=== PATIENT | male | born 1950 | race Caucasian/White ===

== ENCOUNTER 2023-04-08 14:50 | Outpatient (AMB) | payer MEDICARE, SELFPAY ==
--- NOTE | 2023-04-08 14:52 | MHC.OFFVIS ---
Intake Vital Signs 04/08/23 14:54 Height 5 ft 4 in Weight 188 lb 7.924 oz BMI 32.4 BP 142/72 H Blood Pressure Location Lt brachial Position Sitting Pulse 55 Pulse Source Pulse Oximeter Pulse Oximetry (%) 97 Oxygen Delivery Method Room Air Intake Visit Reasons: dypnea Allergies No Known Allergies Allergy (Verified 04/08/23 14:57) HPI HPI Comments History of Present Illness Details the patient is here for pulmonary evaluation. The patient is a 73-year-old gentleman presenting with symptoms of progressive dyspnea. The patient states that he gets short of breath when going up a flight of stairs. Will works in the [employer] now for more than 20 years. He is very active he wakes up early in the morning and he has been working most days. The patient has been evaluated for dyspnea by Cardiology. 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 He also has atrial fibrillation and has been on rate-controlling agents and anticoagulation. Therefore, the patient underwent additional studies to assess his dyspnea symptoms. He did undergo pulmonary function studies that do not have available. Apparently he was told that they appeared to be good for his age. I will request them from his primary care. I did look in the [email or web address] system but I can not locate them there. The patient also had a CT scan of the chest at [facility]. I personally reviewed the CT scan with him and his . Patient has only minimal changes. Does have appeared to have some mosaic pattern primarily at the bases suggesting air trapping in addition to that does have some reticular changes in the periphery in the bases suggesting some degree of scarring. 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 But explained to the patient and his that the findings on the CT scan do not explain the full picture. We did go for brief walking oximetry. We were walking on hallway a decent pace and the patient did very well patient's heart rate did go up to 116 regularly regular due to his AFib and his pulse ox was 98%. Subsequently after that we did go a flight of stairs the patient is symptoms worsened once we went up 3 flights of stairs. He did take a break he was visibly breathless. At that point his pulse ox was 96% and heart rate around 105 beats per minute. Once he rested after 2 minutes we were able to go downstairs again. He did well otherwise. [facility] Medical History (Updated 04/08/23 @ 22:17 by Klaus Adames MD) Afib Anemia Dyspnea ILD (interstitial lung disease) Valvular heart disease Review of Systems Const Denies fever(s) Eyes Denies change in vision ENT Denies change in voice Card Denies chest pain and Reports dyspnea on exertion Resp Reports dyspnea on exertion and Denies wheezing GI Reports no additional complaints Musc Reports no additional complaints Skin/Breast Denies rash Neuro Reports no additional complaints Kel/Lymph Denies easy bleeding, Denies easy bruising and Denies lymphadenopathy Aller/Immun Denies wheezing Physical Exam Vital Signs: Last Vital Signs Pulse 55 04/08/23 14:54 BP 142/72 H 04/08/23 14:54 Pulse Ox 97 04/08/23 14:54 Oxygen Delivery Method Room Air 04/08/23 14:54 BMI result Body Mass Index 32.4 Const General: comfortable HEENT Head: Yes atraumatic Neck Neck: Yes supple Chest Chest palpation & inspection: normal inspection of the chest Resp Effort & Inspection: normal respiratory effort Auscultation: no crackles, no rhonchi, no wheezes and diminished lung sounds Cardio Rhythm: abnormal rhythm Heart sounds: S1 normal heart sound present, S2 normal heart sound present and Murmur heart sound present GI Palpation (GI): Soft to palpation Skin General skin exam: no rashes or lesions noted Extrem General: Yes no clubbing, cyanosis or edema Assessment & Plan Assessment & Plan (1) Dyspnea: Code(s): R06.00 - Dyspnea, unspecified (2) ILD (interstitial lung disease): Code(s): J84.9 - Interstitial pulmonary disease, unspecified (3) Afib: Code(s): I48.91 - Unspecified atrial fibrillation (4) Anemia: Code(s): D64.9 - Anemia, unspecified (5) Valvular heart disease: Code(s): I38 - Endocarditis, valve unspecified Plan The patient is presenting with progressive dyspnea symptoms. Based on presentation it appears that his dyspnea is multifactorial. He does have a very physical job he actually did fairly well during his walking oximetry even going up several flights of stairs. likely the underlying interstitial lung disease which could be secondary to his work-related exposures and pneumoconiosis needs to be further explored. Chronic hypersensitivity pneumonitis is in the differential in this could be related to exposure to organic protein that he may be hypersensitive to. In addition to that a lot of pesticides and insecticides that unfortunately have been also associated with interstitial lung disease. I do not see any evidence of any idiopathic pulmonary fibrosis but will continue to monitor. Again the interstitial lung disease findings along with his history of anemia, chronic atrial fibrillation without any atrial kick, or likely precipitating his underlying symptoms. Recommendations: Will request blood work to further address the interstitial lung disease in possible pneumoconiosis trial of prednisone times 14 days. He does have a history prediabetes therefore he will be monitoring his sugars. Need to review his PFTs. Will request a from his primary care doctor's office follow-up in 6-8 weeks to review the blood work and assess his response to steroids Orders: Orders Cyclic Citrullinated Peptide Today J84.9 - Interstitial pulmonary disease, unspecified Complete Blood Count Auto Diff Today J84.9 - Interstitial pulmonary disease, unspecified Erythrocyte Sedimentation Rate Today J84.9 - Interstitial pulmonary disease, unspecified DONNA Reflex Titer and Pattern Today J84.9 - Interstitial pulmonary disease, unspecified Hypersensitive Pneumonitis Prf Today J84.9 - Interstitial pulmonary disease, unspecified, R91.8 - Other nonspecific abnormal finding of lung field Immunoglobulin E Today J84.9 - Interstitial pulmonary disease, unspecified Scleroderma 70 Antibody Today J84.9 - Interstitial pulmonary disease, unspecified Medications: New prednisone PO daily; Take 2 tabs daily x 7 days, then 1 tab daily x 7 days 21 tabs 0RF 14 days Coding Level of Care Code New Pt Level 5 (41214) Diagnoses Dyspnea R06.00 ILD (interstitial lung disease) J84.9 Afib I48.91 Anemia D64.9 Valvular heart disease I38 Time Spent (min) 60
[2023-04-08 14:54] VITALS: BP 142/72; PULSE 55; O2SAT 97; BMI 32.4
== END 2023-04-08 15:41 | disposition home or self-care (01) ==
PROVIDERS: PCP Pediatrics; Visit Provider Hospitalist
DX: J84.9 Interstitial pulmonary disease, unspecified (principal); I48.91 Unspecified atrial fibrillation; D64.9 Anemia, unspecified; I38 Endocarditis, valve unspecified
CPT/HCPCS: 99205

== ENCOUNTER → 2023-04-08 14:50 | Outpatient (BNVA) | payer MEDICARE, SELFPAY | PROVIDERS: PCP Pediatrics; Visit Provider Hospitalist | DX: R06.00 Dyspnea, unspecified (principal); J84.9 Interstitial pulmonary disease, unspecified; R91.8 Other nonspecific abnormal finding of lung field; I48.91 Unspecified atrial fibrillation; I38 Endocarditis, valve unspecified; D64.9 Anemia, unspecified | CPT/HCPCS: 99202 ==

== ENCOUNTER 2023-06-03 14:47 | Outpatient (AMB) | payer MEDICARE, SELFPAY ==
[2023-06-03 14:53] VITALS: PULSE 66; O2SAT 97; BMI 32.4
--- NOTE | 2023-06-03 14:53 | A.OFFVIS_ITS ---
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 The patient states that he gets short of breath when going up a flight of stairs. Will works in the [employer] now for more than 20 years. He is very active he wakes up early in the morning and he has been working most days. The patient has been evaluated for dyspnea by Cardiology. 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 He also has atrial fibrillation and has been on rate-controlling agents and anticoagulation. Therefore, the patient underwent additional studies to assess his dyspnea symptoms. He did undergo pulmonary function studies that do not have available. Apparently he was told that they appeared to be good for his age. I will request them from his primary care. I did look in the [employer] system but I can not locate them there. The patient also had a CT scan of the chest at [facility]. I personally reviewed the CT scan with him and his . Patient has only minimal changes. Does have appeared to have some mosaic pattern primarily at the bases suggesting air trapping in addition to that does have some reticular changes in the periphery in the bases suggesting some degree of scarring. 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 But explained to the patient and his that the findings on the CT scan do not explain the full picture. We did go for brief walking oximetry. We were walking on hallway a decent pace and the patient did very well patient's heart rate did go up to 116 regularly regular due to his AFib and his pulse ox was 98%. Subsequently after that we did go a flight of stairs the patient is symptoms worsened once we went up 3 flights of stairs. He did take a break he was visibly breathless. At that point his pulse ox was 96% and heart rate around 105 beats per minute. Once he rested after 2 minutes we were able to go downstairs again. He did well otherwise. 06/03/2023 the patient is here for a [facility] follow-up visit. He continues to have dyspnea on exertion specially going up a flight of stairs but overall okay. He did undergo a brief course of prednisone to see if this provides some relief any did indeed feel better after being on the prednisone. He is now off the prednisone altogether which is also good. His blood sugars were stable and he was on the therapy. I did again review the CT scan of the chest with some degree of interstitial changes but not significant. Therefore I do not believe that he needs additional steroids at this time. 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 Will plan to have him come back in 6 months with a chest x-ray to see if there is any progression of the pneumoconiosis. If there is any worsening interstitial lung disease or symptoms then we can consider more systemic therapy. Otherwise he can also call and we can consider inhaled cortical steroids but I do not believe that the going to be as effective for him. [facility] Medical History (Updated 06/03/23 @ 23:09 by Klaus Adames MD) Valvular heart disease Anemia Afib ILD (interstitial lung disease) Dyspnea Social History (Updated 06/03/23 @ 14:56 by MARCIA Martinez) Patient Tobacco Use Status: Never used Tobacco Review of Systems Const Denies fever(s) Eyes Denies change in vision ENT Denies change in voice Card Denies chest pain and Reports dyspnea on exertion Resp Reports dyspnea on exertion and Denies wheezing GI Reports no additional complaints Musc Reports no additional complaints Skin/Breast Denies rash Neuro Reports no additional complaints Kel/Lymph Denies easy bleeding, Denies easy bruising and Denies lymphadenopathy Aller/Immun Denies wheezing Physical Exam Vital Signs: Last Vital Signs Pulse 66 06/03/23 14:53 Pulse Ox 97 06/03/23 14:53 Oxygen Delivery Method Room Air 06/03/23 14:53 BMI result Body Mass Index 32.4 Const General: comfortable HEENT Head: Yes atraumatic Neck Neck: Yes supple Chest Chest palpation & inspection: normal inspection of the chest Resp Effort & Inspection: normal respiratory effort Auscultation: no crackles, no rhonchi, no wheezes and diminished lung sounds Cardio Rhythm: abnormal rhythm Heart sounds: S1 normal heart sound present, S2 normal heart sound present and Murmur heart sound present GI Palpation (GI): Soft to palpation Skin General skin exam: no rashes or lesions noted Extrem General: Yes no clubbing, cyanosis or edema Assessment & Plan Assessment & Plan (1) Dyspnea: Code(s): R06.00 - Dyspnea, unspecified Qualifiers: Dyspnea type: dyspnea on exertion Qualified Code(s): R06.09 - Other forms of dyspnea (2) ILD (interstitial lung disease): Code(s): J84.9 - Interstitial pulmonary disease, unspecified (3) Afib: Code(s): I48.91 - Unspecified atrial fibrillation Qualifiers: Atrial fibrillation type: paroxysmal Qualified Code(s): I48.0 - Paroxysmal atrial fibrillation (4) Anemia: Code(s): D64.9 - Anemia, unspecified Qualifiers: Anemia type: other cause Other causes of anemia: other cause, not classified Qualified Code(s): D64.89 - Other specified anemias (5) Valvular heart disease: Code(s): I38 - Endocarditis, valve unspecified Plan The patient is presenting with progressive dyspnea symptoms. Based on presentation it appears that his dyspnea is multifactorial. He does have a very physical job he actually did fairly well during his walking oximetry even going up several flights of stairs. likely the underlying interstitial lung disease which could be secondary to his work-related exposures and pneumoconiosis needs to be further explored. Chronic hypersensitivity pneumonitis is in the differential in this could be related to exposure to organic protein that he may be hypersensitive to. In addition to that a lot of pesticides and insecticides that unfortunately have been also associated with interstitial lung disease. I do not see any evidence of any idiopathic pulmonary fibrosis but will continue to monitor. Again the interstitial lung disease findings along with his history of anemia, chronic atrial fibrillation without any atrial kick, or likely precipitating his underlying symptoms. Recommendations: start NINA as needed consider inhaled steroid CXR consider pulmonary rehab F/U 6 months or sooner if symptoms worsen Orders: Orders XR chest 2V Today J84.9 - Interstitial pulmonary disease, unspecified Medications: New albuterol sulfate 90 mcg/actuation 2 inhalations inhalation Q6H PRN 18 grams 12RF shortness of breath or wheezing 30 days J44.9 - Chronic obstructive pulmonary disease, unspecified Coding Level of Care Code Est Pt Level 4 (12387) Diagnoses Dyspnea on exertion R06.09 Dyspnea type: dyspnea on exertion ILD (interstitial lung disease) J84.9 Paroxysmal atrial fibrillation I48.0 Atrial fibrillation type: paroxysmal Anemia due to other cause, not classified D64.89 Anemia type: other cause Other causes of anemia: other cause, not classified Valvular heart disease I38 Time Spent (min) 17
== END 2023-06-03 15:15 | disposition home or self-care (01) ==
PROVIDERS: PCP Pediatrics; Visit Provider Hospitalist
DX: R06.09 Other forms of dyspnea (principal); J84.9 Interstitial pulmonary disease, unspecified; I48.0 Paroxysmal atrial fibrillation; D64.89 Other specified anemias; I38 Endocarditis, valve unspecified
CPT/HCPCS: 99214

== ENCOUNTER → 2023-06-03 14:47 | Outpatient (BNVA) | payer MEDICARE, SELFPAY | PROVIDERS: PCP Pediatrics; Visit Provider Hospitalist | DX: R06.09 Other forms of dyspnea (principal); J84.9 Interstitial pulmonary disease, unspecified; I48.0 Paroxysmal atrial fibrillation; I38 Endocarditis, valve unspecified; D64.89 Other specified anemias | CPT/HCPCS: 99212 ==

== ENCOUNTER 2023-11-14 12:46 | Outpatient (REF) | payer MEDICARE, SELFPAY ==
--- NOTE | ~2023-11-14 | XR_ITS ---
EXAMINATION: XR CHEST CLINICAL INFORMATION: Pulmonary disease, unspecified COMPARISON: None available. TECHNIQUE: 2 views of the chest were obtained. FINDINGS: The patient is status post median sternotomy for CABG surgery. Status post TAPVR. The lungs are well expanded and clear. No focal consolidation, interstitial pulmonary edema or pneumothorax. Prominence of the interstitial markings is not appreciated. R size is upper limits of normal. No pleural effusion. No acute osseous abnormality. XR/XR chest 2V IMPRESSION: No acute abnormality.
== END 2023-11-14 12:47 | disposition home or self-care (01) ==
LOC: HO.XRAY 12:46
PROVIDERS: PCP Pediatrics; Visit Provider Hospitalist
DX: J84.9 Interstitial pulmonary disease, unspecified (principal); R06.09 Other forms of dyspnea; I48.0 Paroxysmal atrial fibrillation
CPT/HCPCS: 71046; 99212

== ENCOUNTER 2023-11-14 13:07 | Outpatient (AMB) | payer MEDICARE, SELFPAY ==
[2023-11-14 13:49] VITALS: PULSE 70; O2SAT 97; BMI 34.3
--- NOTE | 2023-11-14 13:49 | A.OFFVIS_ITS ---
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 The patient states that he gets short of breath when going up a flight of stairs. Will works in the [employer] now for more than 20 years. He is very active he wakes up early in the morning and he has been working most days. The patient has been evaluated for dyspnea by Cardiology. 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 He also has atrial fibrillation and has been on rate-controlling agents and anticoagulation. The refore, the patient underwent additional studies to assess his dyspnea symptoms. He did undergo pulmonary function studies that do not have available. Apparently he was told that they appeared to be good for his age. I will request them from his primary care. I did look in the [employer] system but I can not locate them there. The patient also had a CT scan of the chest at [facility]. I personally reviewed the CT scan with him and his . Patient has only minimal changes. Does have appeared to have some mosaic pattern primarily at the bases suggesting air trapping in addition to that does have some reticular changes in the periphery in the bases suggesting some degree of scarring. 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 But explained to the patient and his that the findings on the CT scan do not explain the full picture. We did go for brief walking oximetry. We were wa lking on hallway a decent pace and the patient did very well patient's heart rate did go up to 116 regularly regular due to his AFib and his pulse ox was 98%. Subsequently after that we did go a flight of stairs the patient is symptoms worsened once we went up 3 flights of stairs. He did take a break he was visibly breathless. At that point his pulse ox was 96% and heart rate around 105 beats per minute. Once he rested after 2 minutes we were able to go downstairs again. He did well otherwise. 06/03/2023 the patient is here for a pul monary follow-up visit. He continues to have dyspnea on exertion specially going up a flight of stairs but overall okay. He did undergo a brief course of prednisone to see if this provides some relief any did indeed feel better after being on the prednisone. He is now off the prednisone altogether which is also good. His blood sugars were stable and he was on the therapy. I did again review the CT scan of the chest with some degree of interstitial changes but not significant. Therefore I do not believe that he needs additional steroids at this time. 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 Will plan to have him come back in 6 months with a chest x-ray to see if there is any progression of the pneumoconiosis. If there is any worsening interstitial lung disease or symptoms then we can consider more systemic therapy. Otherwise he can also call and we can consider inhaled cortical steroids but I do not believe that the going to be as effective for him. 11/14/2023 [facility] The patient has been doing well. Still complains of dyspnea on exertion at baseline. Mainly when going up a flight of stairs or going up inclines. 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 He has no longer on any prednisone or any therapy. He does have a rescue inhaler but he has not needed it. He does have a history atrial fibrillation so he has to be careful with that. He did have a chest x-ray which we personally reviewed. It appears to be completely intact without any evidence of any pneumonitis or scarring. Seems like he is doing very well therefore we do not have to consider additional therapies. Will go ahead and have him repeat the CT scan in early 2024 to assess for any progression of interstitial lung disease. [facility] Medical History (Updated 06/03/23 @ 23:09 by Klaus Adames MD) Valvular heart disease Anemia Afib ILD (interstitial lung disease) Dyspnea Social History (Updated 06/03/23 @ 14:56 by MARCIA Martinez) Patient Tobacco Use Status: Never used Tobacco Review of Systems Const Denies fever(s) Eyes Denies change in vision ENT Denies change in voice Card Denies chest pain and Reports dyspnea on exertion Resp Reports dyspnea on exertion and Denies wheezing GI Reports no additional complaints Musc Reports no additional complaints Skin/Breast Denies rash Neuro Reports no additional complaints Kel/Lymph Denies easy bleeding, Denies easy bruising and Denies lymphadenopathy Aller/Immun Denies wheezing Physical Exam Vital Signs: Last Vital Signs Pulse 70 11/14/23 13:49 Pulse Ox 97 11/14/23 13:49 Oxygen Delivery Method Room Air 11/14/23 13:49 BMI result Body Mass Index 34.3 Const General: comfortable HEENT Head: Yes atraumatic Neck Neck: Yes supple Chest Chest palpation & inspection: normal inspection of the chest Resp Effort & Inspection: normal respiratory effort Auscultation: no crackles, no rhonchi, no wheezes and diminished lung sounds Cardio Rhythm: abnormal rhythm Heart sounds: S1 normal heart sound present, S2 normal heart sound present and Murmur heart sound present GI Palpation (GI): Soft to palpation Skin General skin exam: no rashes or lesions noted Extrem General: Yes no clubbing, cyanosis or edema Assessment & Plan Assessment & Plan (1) Dyspnea: Code(s): R06.00 - Dyspnea, unspecified Qualifiers: Dyspnea type: dyspnea on exertion Qualified Code(s): R06.09 - Other forms of dyspnea (2) ILD (interstitial lung disease): Code(s): J84.9 - Interstitial pulmonary disease, unspecified (3) Afib: Code(s): I48.91 - Unspecified atrial fibrillation Qualifiers: Atrial fibrillation type: paroxysmal Qualified Code(s): I48.0 - Paroxysmal atrial fibrillation (4) Anemia: Code(s): D64.9 - Anemia, unspecified Qualifiers: Anemia type: other cause Other causes of anemia: other cause, not classified Qualified Code(s): D64.89 - Other specified anemias (5) Valvular heart disease: Code(s): I38 - Endocarditis, valve unspecified Plan The patient is presenting with progressive dyspnea symptoms. Based on presentation it appears that his dyspnea is multifactorial. He does have a very physical job he actually did fairly well during his walking oximetry even going up several flights of stairs. likely the underlying interstitial lung disease which could be secondary to his work-related exposures and pneumoconiosis needs to be further explored. Chronic hypersensitivity pneumonitis is in the differential in this could be related to exposure to organic protein that he may be hypersensitive to. In addition to that a lot of pesticides and insecticides that unfortunately have been also associated with interstitial lung disease. I do not see any evidence of any idiopathic pulmonary fibrosis but will continue to monitor. Again the interstitial lung disease findings along with his history of anemia, chronic atrial fibrillation without any atrial kick, or likely precipitating his underlying symptoms. Recommendations: NINA as needed consider inhaled steroid CT chest August 2024 F/U August 2024 Orders: Orders CT chest wo IV con 08/17/24 J84.9 - Interstitial pulmonary disease, unspecified Coding Level of Care Code Est Pt Level 4 (90843) Diagnoses Dyspnea on exertion R06.09 Dyspnea type: dyspnea on exertion ILD (interstitial lung disease) J84.9 Paroxysmal atrial fibrillation I48.0 Atrial fibrillation type: paroxysmal Anemia due to other cause, not classified D64.89 Anemia type: other cause Other causes of anemia: other cause, not classified Valvular heart disease I38 Time Spent (min) 17
== END 2023-11-14 14:13 | disposition home or self-care (01) ==
PROVIDERS: PCP Pediatrics; Visit Provider Hospitalist
DX: R06.09 Other forms of dyspnea (principal); J84.9 Interstitial pulmonary disease, unspecified; I48.0 Paroxysmal atrial fibrillation; D64.89 Other specified anemias; I38 Endocarditis, valve unspecified
CPT/HCPCS: 99214

== ENCOUNTER 2024-07-21 12:52 | Outpatient (REF) | payer MEDICARE, SELFPAY ==
--- OUTSIDE RECORDS SUMMARY | 2024-07-22 21:17 | XMS_ITS | Clinical Summary ---
Author Organization [facility] Address [address] [place] [phone] Phone Care Team Providers Care Jai Alai Player Name Role Phone [facility] Unavailable [phone] Tc Mata MD Primary Care Provider [phone] Reason for Visit and Chief Complaint Established Patient Plan of Treatment Pending Tests Order Diagnosis Results Due Ordering P rovider Follow Up - Appointment PRN Contusio n of left lower leg, initial encounter 12/17/22 Eduardo Pruitt MD Last Documented On 10:24AM ; [facility] Assessments Includes: Assessments from this encounter No Assessments Recorded Medical Equipment - Implanted Devices Includes: Current Devices No Medical Equipment Recorded Medications Administered Includes: Administered Medications from this encounter No Administered Medications Recorded Vital Signs Includes: Vital Signs from this encounter Vital Name 12/17/2022 10:21A Blood Pressure Sitting (mmHg) 130/46 Pulse Rate-Sitting (bpm) 61 Temp-Temporal 97.2 Height (in) 66 Weight (lb) 200 Body Mass Index 32.3 Body Surface Area 2 Oxygen Saturation (%) 99 Last Documented: On 12/17/2022 10:21A M ; [facility] Results Includes: Results discussed during this encounter No Results Recorded For Specified Dates History of Present Illness Includes: History of Present Illness from this encounter No History of Present Illness Recorded Social History No Social History Recorded - Smoking Status Unknown Medical History Includes: Medical History addressed during this encounter No Medical History Recorded Family History Includes: Family History addressed during this encounter No Family History Recorded Review of Systems Includes: Review of Systems from this encounter No Review of Systems Recorded Mental Status Includes: Mental Status from this encounter No Mental Status Recorded Functional Status Includes: Functional Status from this encounter No Functional Status Recorded Physical Exam Includes: Physical Exam from this encounter Encounters Encounter Provider Location Date Check-In Time Check-Out Time Diagnosis Established Patient Eduardo Pruitt MD [facility], 12/18/19 9:40AM 10:25AM Insurance Includes: Active Insurance Policies Plan Name Member ID Group # Subscriber Relationship Effect nelia Dates 1 - Medicare Part B of [place] [id number] Amandeep Simpson 2 - Medex [id number] Amandeep Simpson Clinical Notes Includes: Clinical Notes from this encounter * Progress note Date Encounter Last Documented by 12/17/2022 Established Patient Last documen helen on 12/17/2022; 10:24 AM, Eduardo Pruitt MD; [facility], Physical Findings - Vitals taken 12/17/2022 10:21 am BP-Sitting 130/46 mmHg Pulse Rate-Sitting 61 bpm Temp-Temporal 97.2 F Height 66 in Weight 200 lbs Body Mass Index 32.3 kg/m2 Body Surface Area 2 m2 Oxygen Saturation 99 % Chief complaint: Follow-up hematoma with cellulitis left leg History of Present Illness: This is a 72-year-old man who sustained an injury to his left leg with a hematoma and resultant cellulitis. He is on chronic Coumadin for atrial fibrillation. He was admitted twice during November. He was last seen on 11/30/2022. He has no complaints today. Physical exam: The wound on the left leg is healing without sign of infection. There is no redness, swelling, or drainage. There is no fluctuance. There is a 2 mm x 10 mm eschar at the site of the wound. Imaging: None today Impression: Resolving hematoma/cellulitis left leg. Plan: No further treatment is necessary. The patient may increase his activity to tolerance and return to the office as needed. Plan StartCited - Contusion of left lower leg, initial encounter Follow Up/Appointment: PRN EndCited
--- OUTSIDE RECORDS SUMMARY | 2024-07-22 21:17 | XMS_ITS | Continuity of Care Document ---
Author Organization [facility] Address [address] [place] [phone]- Care Team Providers Care Polymer Specialist Name Role Phone Tc Mata MD [id number] 07/20/[facility] [address] [place] [id number] Discharge Disposition: A-D/C Home Attending Physician: Maribell HAMILTON(Hem/Onc), Pepito Bell Admitting Physician: Maribell HAMILTON(Hem/Onc), Pepito Bell Referring Physician: Tc Mata MD Encounter Type: Disch Recurring OP Allergies, Adverse Reactions, Alerts No Known Allergies Medications 23 G 0.6mm x 25 mm needle 23 G 0.6mm x 25 mm needle, See Instructions, # 12 each, Refills 2, Tot. Refills 2, Maintenance, Useone needle once a month for B12 IM injection, 07/12/20 6:56:00 PM EST, Supply, 168, cm, 10/15/19 11:12:00 EST, Height, 93.9, kg, 10/02/19 11:02:00 EST, Dry Weight Start Date: 07/12/20 Status: Ordered Quantity: 12.0 Unit: each Repeat number: 3 3 cc syringe 3 cc syringe, See Instructions, # 12 each, Refills 3, Tot. Refills 3, Maintenance, Use once a monthfor B12 injection, 02/10/21 8:03:00 AM EDT, Supply Start Date: 02/10/21 Status: Ordered Quantity: 12.0 Unit: each Repeat number: 4 Amlodipine = 5 mg, By Mouth, Daily, 0 Refills, Maintenance, 06/21/17 7:01:04 AM EST Start Date: 06/21/17 Status: Ordered Repeat number: 1 amLODIPine 2.5 mg oral tablet 2.5 mg, 1, tablet, By Mouth, Daily, # 30 tablet, Refills 0, Maintenance, 10/02/23 3:59:00 PM EST, Partial fill upon patient request if the prescription is for a schedule II opioid drug. Start Date: 10/02/23 Status: Ordered Quantity: 30.0 Unit: tablet Repeat number: 1 aspirin 81 mg oral tablet 1 tablet = 81 mg, By Mouth, Daily, # 30 tablet, 0 Refills, Maintenance, 06/21/17 7:01:16 AM EST, Tablet Start Date: 06/21/17 Status: Ordered Quantity: 30.0 Unit: tablet Repeat number: 1 BD 3ML LUER-NANCY SYRINGE/25G X 1 25G X 1 3 ML BD 3ML LUER-NANCY SYRINGE/25G X 1 25G X 1 3 ML, See Instructions, # 3 each, 0 Refills, Maintenance,USE ONCE A MONTH FOR B12 INJECTION, 02/06/23 11:44:00 AM EDT, 160, cm, 01/08/23 10:46:00 EDT, Height, 87.4, kg, 01/08/23 11:11:00 EDT, Dry Weight Start Date: 02/06/23 Status: Ordered Quantity: 3.0 Unit: each Repeat number: 1 BD 3ML LUER-NANCY SYRINGE/25G X 1 25G X 1 3 ML BD 3ML LUER-NANCY SYRINGE/25G X 1 25G X 1 3 ML, See Instructions, # 3 each, 0 Refills, Maintenance,USE ONCE A MONTH FOR B12 INJECTION, 08/15/22 8:15:00 AM EST, 160, cm, 05/08/22 10:15:00 EDT, Height, 85.6, kg, 05/08/22 10:15:00 EDT, Dry Weight Start Date: 08/15/22 Status: Ordered Quantity: 3.0 Unit: each Repeat number: 1 BD 3ML LUER-NANCY SYRINGE/25G X 1 25G X 1 3 ML BD 3ML LUER-NANCY SYRINGE/25G X 1 25G X 1 3 ML, See Instructions, # 3 each, 0 Refills, USE ONCE A MONTH FOR B12 INJECTION, 160, cm, 10/05/21 9:58:00 EST, Height, 89.7, kg, 10/05/21 9:58:00 EST, Dry Weight Start Date: 03/08/22 Status: Ordered Quantity: 3.0 Unit: each Repeat number: 1 colestipol 1 gm oral tablet 1 tablet = 1 Gm, By Mouth, 2 times a day, 0 Refills, Maintenance, 06/21/17 7:01:31 AM EST Start Date: 06/21/17 Status: Ordered Repeat number: 1 CoQ10 = 150 mg, By Mouth, Daily, 0 Refills, Maintenance, 06/21/17 7:01:42 AM EST Start Date: 06/21/17 Status: Ordered Repeat number: 1 Crestor 40 mg oral tablet 1 tablet = 40 mg, By Mouth, Daily at bedtime, 0 Refills, Maintenance, 06/21/17 7:02:04 AM EST Start Date: 06/21/17 Status: Ordered Repeat number: 1 cyanocobalamin 1000 mcg/ml injectable solution See Instructions, INJECT 1ML INTO THE MUSCLE EVERY 30 DAYS, DISCARD VIAL 28 DAYS AFTER OPENING, # 3mL, 3 Refills, Maintenance, 07/20/24 5:30:00 AM EST, [facility], 163, cm, 05/20/24 9:45:00 EDT, Height, 87.5, kg, 05/20/24 9:45:00 EDT, Dry Weight Start Date: 07/20/24 Status: Ordered Quantity: 3.0 Unit: mL Repeat number: 1 diltiazem 24 hour extended release = 180 mg, By Mouth, Daily, 0 Refills, Maintenance, 06/21/17 7:02:16 AM EST Start Date: 06/21/17 Status: Ordered Repeat number: 1 Fish Oil 1200 mg oral capsule 1 capsule = 1,200 mg, By Mouth, 2 times a day, 0 Refills, Maintenance, 06/21/17 7:07:32 AM EST Start Date: 06/21/17 Status: Ordered Repeat number: 1 metoprolol 100 mg oral tablet, extended release 100 mg, By Mouth, Daily, do not crush or chew, # 30 tablet, Refills 3, Tot. Refills 3, Maintenance,08/02/17 3:34:06 PM EST, Print Requisition Start Date: 08/02/17 Stop Date: 11/30/17 Status: Ordered Quantity: 30.0 Unit: tablet Repeat number: 4 metoprolol 50 mg oral tablet 50 mg, 1, tablet, By Mouth, Daily, Refills 0, Maintenance, 10/02/23 4:00:00 PM EST, Partial fill upon patient request if the prescription is for a schedule II opioid drug. Start Date: 10/02/23 Status: Ordered Repeat number: 1 montelukast 10 mg oral tablet 10 mg, 1, tablet, By Mouth, Daily, # 30 tablet, Refills 0, Maintenance, 01/08/23 11:28:00 AM EDT, Partial fill upon patient request if the prescription is for a schedule II opioid drug. Start Date: 01/08/23 Status: Ordered Quantity: 30.0 Unit: tablet Repeat number: 1 Omeprazole = 20 mg, By Mouth, Daily, 0 Refills, Maintenance, 05/08/22 12:28:00 PM EDT, Partial fill upon patient request if the prescription is for a schedule II opioid drug. Start Date: 05/08/22 Status: Ordered Repeat number: 1 Vitamin D3 1000 intl units oral capsule 2 capsule = 2,000 International_Units, By Mouth, Daily, 0 Refills, Maintenance, 03/21/18 12:57:00 PMEDT Start Date: 03/21/18 Status: Ordered Repeat number: 1 warfarin 5 mg oral tablet 1 tablet = 5 mg, By Mouth, Daily, 0 Refills, Maintenance, 06/21/17 7:02:48 AM EST Start Date: 06/21/17 Status: Ordered Repeat number: 1 Zetia 10 mg oral tablet 1 tablet = 10 mg, By Mouth, Daily, 0 Refills, Maintenance, 06/21/17 7:02:55 AM EST Start Date: 06/21/17 Status: Ordered Repeat number: 1 Problem List Condition Confirmation Course Effective Dates Status Health St atus Informant Aortic stenosis Confirmed Active AF (atrial fibrillation) Confirmed Active BPH (benign prostatic hypertrophy) Confirmed Active CAD (coronary artery disease), s/p CABG X6 Confirmed 1998 Active Hard of hearing Confirmed Active Heart murmur Confirmed Active HLD (hyperlipidemia) Confirmed Active HTN (hypertension) Confirmed Active Small Pulmonary nodules Confirmed Active Obese class I Confirmed Active Obesity (BMI 34 as of 07/29/2017) Confirmed Active BRE on CPAP Confirmed Active OA (osteoarthritis) Confirmed Active Pancytopenia Confirmed Active Vital Signs Most recent to oldest [Reference Range]: 1 2 Height 163 cm (05/20/24 9:45 AM) 163 cm (05/11/24 10:30 AM) Weight 87.5 kg (05/20/24 9:45 AM) 87.1 kg (05/11/24 10:30 AM) Oxygen Saturation [94-100 %] 100 % (05/20/24 9:45 AM) 97 % (05/11/24 10:30 AM) Pulse Rate [55-90 bpm] 78 bpm (05/20/24 9:45 AM) 58 bpm (05/11/24 10:30 AM) Body Mass Index [18.5-24.99 kg/m2] 32.93 kg/m2 *>HHI* (05/20/24 9:45 AM) 32.78 kg/m2 *>HHI* (05/11/24 10:30 AM) Blood Pressure [90-138/55-84 mm Hg] 153/ 80mm Hg *H* (05/20/24 9:45 AM) 144/81mm Hg *H* (05/11/24 10:30 AM) Temperature [96.8-100.4 DegF] 97.6 DegF (05/20/24 9:45 AM) 97.1 DegF (05/11/24 10:30 AM) Mode of Delivery (Oxygen) Room air (05/20/24 9:45 AM) Room air (05/11/24 10:30 AM) Blood pressure sites Arm, right (05/20/24 9:45 AM) Arm, right (05/11/24 10:30 AM) Temperature Route Oral (05/20/24 9:45 AM) Temporal (05/11/24 10:30 AM) Dry Weight 87.5 kg (05/20/24 9:45 AM) 87.1 kg (05/11/24 10:30 AM) Weight Obtained Via Standing scale (05/20/24 9:45 AM) Standing scale (05/11/24 10:30 AM) Dry Weight Obtained Via Standing scale (05/20/24 9:45 AM) Standing scale (05/11/24 10:30 AM) Social History Social History Type Response Smoking Status Never smoker entered on: 07/03/17 Sex Sex Representation Male (finding) Cytogenetics study * Maribell HAMILTON(Hem/Onc)Pepito: ENDORSE Event Display: Cytogenetics Report Authored Date: Patient Name: BIB RAE Lab Accesssion #: [id number] Patient : 1950 (Age: 74) Collection Date: 05/20/2024 Accession Date: 05/20/2024 Sign Out Date: 05/29/2024 Tissue Source: 1: CHROMOSOME ANALYSIS BONE MARROW Final Diagnosis: The complete [facility] Chromosome Analysis Bone Marrow results report is available in [facility], under CALENDERING [employer]PER[employer] [facility]. See???case [id number]. Primary Pathologist: Alexsander Torres M.D. Phone #: [phone], On-Call Pathologist: [id number] Laboratory * Maribell HAMILTON(Hem/Onc)Pepito: ENDORSE Event Display: Molecular Biology Authored Date: Patient Name: BIB RAE Lab Patient : 1950 (Age: 74) Collection Date: 05/20/2024 Accession Date: 05/21/2024 Sign Out Date: 05/27/2024 Tissue Source: 1:NGS oncoReveal Myeloid Panel 2:Bone Marrow for DNA extraction Final Diagnosis: SOURCE: Bone Marrow ([id number]) TEST PERFORMED: oncoReveal Myeloid NGS Panel PATHOGENIC VARIANTS DETECTED (TIER 1/2) DDX41 G625Dbw*16 Gene: DDX41 Exon: 11 Nucleotide: NM_016222.4: [id number] c.1118_1127del Amino Acid: p.L565Pix*16 Allelic Fraction: 54.0% (of 4267 reads) Assessment: Likely Pathogenic DDX41 P321L Gene: DDX41 Exon: 10 Nucleotide: NM_016222.4: g.[id number]>A c.962C>T Amino Acid: p.P321L Allelic Fraction: 37.0% (of 08488 reads) Assessment: Pathogenic VARIANTS DETECTED OF UNCERTAIN SIGNIFICANCE (TIER 3) The variants listed here are not sufficiently characterized in the current literature and variant databases, and are therefore, currently of uncertain or unknown clinical significance. They are reported here in the event they become clinically significant in the future. DNMT3A c.1912T>C p.S638P 37.0% (of 58403 reads) PHF6 c.139-8A>G 12.0% (of 1844 reads) VARIANT DETAILS: DDX41 R519Nys*16 Biomarker summary: PHV51-E256id*16 (NM_016222) is predicted to be an inactivating mutation. DDX41 P321L Biomarker summary: QEW42-K640O (NM_016222) is predicted to be an inactivating mutation. Clinical relevance: DDX41 encodes -box helicase 41 (Ddx41), which can play a role in mediating pre-mRNA splicing and DNA-triggered innate immune responses. Loss of Ddx41 activity has been associated with increased cell cycle progression and colony formation, as well as reduced differentiation and apoptosis in cancer cell models, and germline bybz-hu-bjadnnhi mutations in DDX41 have been associ ated with familial susceptibility to hematologic malignancy. There are currently no therapeutic approaches directly targeting DDX41 alterations. Disease summary: Multiple studies have reported that inactivating germline alterations in DDX41 areassociated with familial myelodysplastic syndrome (MDS) and acute myeloid leukemia (AML) in particular. DDX41 alterations have been associated with development of MDS or AML with late onset, similar to that of sporadic MDS/AML, high-risk MDS, male sex, and normal karyotype. In addition, one study of 1045 myeloid neoplasms, which included 378 MDS and 456 AML samples, reported that DDX41 alterations and low DDX41 mRNA expression were significantly associated with poor prognosis, as well as improved response to lenalidomide treatment. Improved overall survival has been reported in 28 AML patients with germline DDX41 mutations as compared with 97 age-matched AML patients with wild- type DDX41. No other clinically significant variants were detected within the genes analyzed. FLT3 ITD may be detected with this panel if the size of the duplication is small. If ordered, complete FLT3 ITD testing will be reported separately. Methods: Highly purified genomic DNA was extracted from bone marrow or peripheral blood using the [employer] MagnaPure 96 or MagnaPAlgonomics 24. Next Generation Sequencing was performed utilizing the [employer] oncStyleQal Myeloid Sequencing Panel to detect the presence of a variant within the targetedregions of the following genes: ABL1, ANKRD26, ASXL1, ATRX, BCOR, BCORL1, BRAF, CALR, CBL, CBLB, CBLC, CDKN2A, CEBPA, CSF3R, CUX1, DDX41, DNMT3A, ETNK1, ETV6, EZH2, FLT3, GATA1, GATA2, GNAS, HRAS, IDH1, IDH2, IKZF1, JAK2, JAK3, KDM6A, KIT, KMT2A, KRAS, MPL, NF1, NPM1, NRAS, PDGFRA, PHF6, PIGA, PPMID, PTEN, PTPN11, RAD21, RUNX1, SETBP1, SF3B1, SMC1A, SMC3, SRSF2, STAG1, STAG2, TET2, TP53, U2AF1, WT1, and ZRSR2. This assay does not reliably detect the RUNX1 c.[id number] p.Bvx162KfvxpK7 variant located in exon 5. The [employer] Pipeline v1.03 is aligned to the reference genome UCSC Hg19 and includes the use of JumpTheClubAT (Lumenergi Variant Analysis Toolkit) for variant calling and annotation and Engrade for variant analysis and interpretation. Interpretations provided are based on the diagnosis of myeloid neoplasm unless a diagnosis is given at the time of analysis. For more information regarding test performance, please contact the laboratory. This assay was determined to detect variants down to 5% allele frequency at a minimum read depth cx276b. Known polymorphisms and germline mutations will not be reported. While DNA testing is very accurate, rare diagnostic errors due to various pre- and post-analytical variables do occur. Findings in this report should be interpreted in the context of clinical findings and therapeutic therapy selections based on the independent medical judgement of the treating physician. This test was developed, and its performance characteristics determined by the Molecular Genetics Laboratory at the [facility]. It has not been cleared or approved by the U.S. Food and Drug Administration (FDA). The FDA has determined that such clearance or approval is not necessary. This test is used for clinical purposes. It should not be regarded as investigational or for research. This laboratory is certified under the Clinical Laboratory Improvement Amendments of 1988 ( CLIA ) as qualified to perform high-complexity clinical laboratory testing. Tier system: Tier I-A- Biomarker predicts response or resistance to an FDA or SARAHI approved therapy, according todrug label or professional guidelines for this diagnosis. Biomarker included in professional guidelines is prognostic or diagnostic for this diagnosis. Tier I-B- Biomarker predicts response or resistance to a therapy for this diagnosis based on well-powered studies. Biomarker is prognostic or diagnostic for this diagnosis based on well-powered studies. Tier II-C- Biomarker is associated with response or resistance to an FDA or SARAHI approved therapy, according to drug label or professional guidelines but only for different diagnosis. Biomarker is an inclusion criterion for an active clinical trial. Biomarker is prognostic or diagnostic based on multiple small studies Tier II-D- Biomarker shows plausible response or resistance based on case or preclinical studies. Biomarker may assist in disease diagnosis or prognosis based on small studies. Tier III (VUS)- Biomarker has uncertain clinical significance. Tier IV- Benign or likely benign variants (not included in the report). Testing performed at [facility], [address] [place] [id number]. CLIA [id number]. A complete report with references is available, call the Molecular Laboratory at if needed. Primary Pathologist:Gianni Saldana M.D., Ph.D. electronically signed out by: Gianni Saldana M.D., Ph.D. / [facility] Clinical History: PANCYTOPENIA, RULE OUT MDS Phone #: [phone], On-Call Pathologist: [id number] Patient Care team information Care Team Personnel Name: Elvia Mora Position: [facility] Onco RN Member Role: Primary Care Nurse Name: Chirag Acuña MD Position: [facility] Cardiology MD Member Role: Lifetime Consulting Physician Address: [address] [place] [address], [address] [facility] [place] [address]- [place] Telecom: Name: Yaneht Ponce NP Position: [facility] Associate Professional Member Role: Lifetime Consulting Provider Address: [address] [place] [address]- Telecom: Name: Graciela Middleton RN Position: [facility] Onco RN Member Role: Primary Care Nurse Name: Tc Mata MD Position: Reference Physician Member Role: PCP Address: [address] [facility] [address] [place] [address]- [place] Telecom: Name: Maribell HAMILTON(Hem/Onc), Pepito Bell Position: [facility] Physician - Oncology Med Service: Hematology & Oncology Member Role: Admitting Physician Address: [address] [facility] [place] [address]- [place] Telecom: Care Team Related Persons Name: ANEL RAE Insurance Providers Guarantor name: BIB RAE Evaneos Plan Information #: 1 Payer: MEDICARE PART B OUTPT Member Number: [id number] Policy Number: NA Group Number: NA Health Plan Information #: 2 Payer: MEDEX Member Number: [id number] Policy Number: NA Group Number: [id number]
--- OUTSIDE RECORDS SUMMARY | 2024-07-22 21:17 | XMS_ITS ---
Author Organization [facility] Address [address] [place] [phone] Phone Care Team Providers Care Promotional Advertising Assistant Name Role Phone [facility] Unavailable [phone] Tc Mata MD Primary Care Provider [phone] Plan of Treatment No Plan of Treatment Recorded Assessments Includes: Assessments for all patient encounters No Assessments Recorded Medical Equipment - Implanted Devices Includes: Current and historical Devices No Medical Equipment Recorded Medications Administered Includes: Administered Medications in patient's chart No Administered Medications Recorded Results Includes: Results from 07/22/2023 through 07/22/2024 No Results Recorded For Specified Dates History of Present Illness History of Present Illness not supported for this document type No History of Present Illness Recorded Social History No Social History Recorded - Smoking Status Unknown Medical History Includes: Medical History in patient's chart No Medical History Recorded Family History Includes: Family History in patient's chart No Family History Recorded Review of Systems Review of Systems not supported for this document type No Review of Systems Recorded Mental Status No Mental Status Recorded Functional Status No Functional Status Recorded Physical Exam Physical Exam not supported for this document type No Physical Exam Recorded Insurance Includes: Active Insurance Policies Plan Name Member ID Group # Subscriber Relationship Effect nelia Dates 1 - Medicare Part B [facility] [id number] Amandeep Simpson 2 - [employer]ex [id number] Amandeep Simpson Clinical Notes Includes: Signed Clinical Notes starting from 07/22/2022 No Clinical Notes Recorded
--- OUTSIDE RECORDS SUMMARY | 2024-07-22 21:17 | XMS_ITS ---
Care Plan - [facility] Created on: July 22, 2024 Amandeep Roque : 1950 Sex: Male Author Organization [facility] Address [address] [place] [phone] Phone Care Team Providers Care Project Portfolio Analyst Name Role Phone [facility] Unavailable [phone] Tc Mata MD Primary Care Provider [phone]
--- OUTSIDE RECORDS SUMMARY | 2024-07-22 21:18 | XMS_ITS | Continuity of Care Document ---
Author Organization [facility], Main Office Address [address] [place] [address] Care Team Providers Care Part Time Flexible Clerk Name Role Phone TC MCKEON Primary Care Provider [phone] AGAPITO FERNANDES Retail Custodial Associate [phone] SAAD LONGORIA Varnishing Unit Operator [phone] MARCO ANTONIO HASSAN Urologist [phone] LYNNE BLOCK Supermarket Manager AGAPITO JO Multisensor Intelligence Officer AL ADAMES Lead Database Developer Assessment No assessment recorded. Plan of Treatment Reminders Order Date Submit Date Provider Last Modified By Organization Details Last Modified Time Details Appointments [id number] 2024 02:15P Paulina Mckeon MD Not available Not available Not available Lab None recorded. Referral None recorded. Procedures None recorded. Surgeries None recorded. Imaging None recorded. Medication Orders warfarin 2.5 mg tablet 2023 [facility] #[id number], [address] [place] [address], [id number], 05/12/2024 16:15:04 Patient TargetsNo targets recorded. Patient Instructions Encounter Date Encounter Id Patient Instructions Last Modified By Organization Details Last Modified Time 05/12/2024 [id number] high cholesterol: care instructions sagrario Not available 05/12/2024 16:14:50 high blood pressure: care instructions [email or web address] Not available 05/12/2024 16:14:50 learning about high blood pressure awychowski Not available 05/12/2024 16:14:50 Reason for Referral None Reported. Problems Name Problem SNOMED Code Status Onset Date Resolution Date Notes Provider Name and Address Organization Details Recorded Time Adult health examinat ion Completed 201203/22/2014 IMPRESSI ON: IMMUNIZA TIONS DUE BUT PT DECLINES FLU. ADVISED TO PURSUE ZOSTAVAX AT LOCAL PHARMACY . WILL SCREEN BASED ON RISK FACTORS. REGULAR DENTAL CARE AND SEATBELT USE ADVISED. DISTRACT ED DRIVING DISCUSSE D. COLONO CANCER SCREENIN G UTD. CANDACE DEFERRED SECONDAR Y TO LOW RISK STATUS.; RECORDED 05/26/20 13 11:22AM BY ABDIFATAH HILL MA, ARTHUR ON/RANDI Mckeon MD [address], [place], [address], [facility] 6 17:40:10 Hypercho lesterol emia [id number] Completed 201203/22/2014 RECORDED 05/26/20 13 11:22AM BY ABDIFATAH HILL MA, ARTHUR ON/RANDI Mckeon MD [address], [place], [address], [facility] 6 17:40:10 Pain in limb [id number] Completed 201303/22/2014 IMPRESSI ON: ? ANGINAL EQUIVALE NT VS BURSITIS /ROTATOR CUFF INJURY. GIVEN NEW ECG CHANGES WILL PURSUE CARDIAC EVALUATI ON FIRST. IF RULED OUT AND PAIN PERSISTS WILL SET UP WITH PHYSIATR Y.; RECORDED 10/30/19 14 7:51AM BY SUZANNE MENDOZA MA, ARTHUR ON/RANDI Mckeon MD [address], [place], [address], [facility] 6 17:40:10 Immuniza tion refused Completed 201303/22/2014 RECORDED 10/30/19 14 7:51AM BY SUZANNE MENDOZA MA, ARTHUR ON/RANDI Mckeon MD [address], [place], [address], [facility] 6 17:40:10 Influenz a vaccine needed [id number] 06 Completed 201103/22/2014 RECORDED 06/30/20 12 1:04PM BY SUZANNE MENDOZA MA, OFFICE VISIT Tc Mckeon MD [address], [place], [address], [facility] 6 17:40:10 Body mass index 30+ - obesity 937161207 Completed 02/03/2015 Tc Mckeon MD [address], [place], [address], [facility] 4 07:35:39 Diastoli c dysfunct ion 3657171 Active Tc Mckeon MD [address], [place], [address], [facility] 6 17:40:10 Aortic valve stenosis 04682542 Completed 08/23/2017 moderate d 08/2014 Tc Mckeon MD [address], [place], [address], [facility] 8 13:38:12 Aortic valve regurgit ation 60177039 Completed 08/23/2017 mild Tc Mckeon MD [address], [place], [address], [facility] 8 13:37:50 Tricuspi d valve regurgit ation 720501534 Active mild Tc Mckeon MD [address], [place], [address], [facility] 6 17:40:10 Unexplai josue weight loss 887886405 Completed 08/16/2016 Tc Mckeon MD [address], [place], [address], [facility] 7 09:07:00 Impaired fasting glycemia 359081312 Active Tc Mckeon MD [address], [place], [address], [facility] 6 17:40:10 Heart irregula rly irregula r 474728388 Completed 08/16/2016 Tc Mckeon MD [address], [place], [address], [facility] 7 09:06:18 Atrial fibrilla tion 16068990 Completed 09/15/2019 Tc Mckeon MD [address], [place], [address], [facility] 0 06:21:24 Hypothyr oidism 36061092 Completed 201407/13/2022 Alvarado Bridges PA-C [address], [place], [address], [facility] 2 09:11:45 Anemia 528786248 Active Tc Mckeon MD [address], [place], [address], [facility] 6 17:40:10 Macrocyt ic anemia 29001380 Active Tc Mckeon MD [address], [place], [address], [facility] 6 17:40:10 Lesion of scalp 56414542765 0 Completed 08/16/2016 Tc Mckeon MD [address], [place], [address], [facility] 7 09:07:56 Senile hyperker atosis 967190482 Active Tc Mckeon MD [address], [place], [address], [facility] 8 13:35:41 Large prostate 403407834 Active 2016 Tc Mckeon MD [address], [place], [address], [facility] 7 23:05:22 Benign prostati c hyperpla mohan with outflow obstruct ion 420579462 Active 2016 Tc Mckeon MD [address], [place], [address], [facility] 7 16:56:01 Vitamin D deficien cy 38126797 Active 2017 Tc Mckeon MD [address], [place], [address], [facility] 8 09:33:07 Urinary bladder stone 44146163 Completed 201709/01/2019 Tc Mckeon MD [address], [place], [address], [facility] 0 11:55:33 Multiple renal cysts 294922150 Active 2017 Tc Mckeon MD [address], [place], [address], [facility] 8 09:47:33 Kidney stone 97164995 Active 2017 Tc Mckeon MD [address], [place], [address], [facility] 8 16:46:26 Pernicio us anemia 43632660 Completed 201809/01/2019 Tc Mckeon MD [address], [place], [address], [facility] 0 11:52:32 Pancytop enia 309538056 Active 2018 Tc Mckeon MD [address], [place], [address], [facility] 9 21:47:46 Adult health examinat ion Completed 201202/23/2014 IMPRESSI ON: IMMUNIZA TIONS DUE BUT PT DECLINES FLU. ADVISED TO PURSUE ZOSTAVAX AT LOCAL PHARMACY . WILL SCREEN BASED ON RISK FACTORS. REGULAR DENTAL CARE AND SEATBELT USE ADVISED. DISTRACT ED DRIVING JULIENNE Chan COLONO CANCER SCREENIN G UTD. CANDACE DEFERRED SECONDAR Y TO LOW RISK STATUS.; RECORDED 05/26/20 13 11:22AM BY ABDIFATAH HILL MA, ANNOTATI ON/ADDEN DUM Tc Mckeon MD [address], [place], [address], [facility] 6 17:40:10 Aortic valve disorder 1214391 Completed 201302/20/2018 mod , Mild AI Tc Mckeon MD [address], [place], [address], [facility] 8 13:55:15 Asthma 499061767 Completed 201308/16/2016 Tc Mckeon MD [address], [place], [address], [facility] 7 09:06:15 Visual disturba nce 76973701 Completed 201308/10/2015 IMPRESSI ON: ? AMAROSIS FUGAX, GIVEN COMORBID ITIES WILL SCREEN FOR CAROTID DISEASE. ; RECORDED 12/12/19 14 9:05AM BY SUZANNE MENDOZA MA, OFFICE VISIT Tc Mckeon MD [address], [place], [address], [facility] 6 17:40:10 Coronary atherosc lerosis 751209797 Active 2013 STORY: BUFFKEENA Mckeon MD [address], [place], [address], [facility] 7 09:07:11 Carotid artery occlusio n 404497023 Completed 201309/01/2019 STORY: 50-69% RIGHT, <49% LEFT; stable 03/2018 Tc Mckeon MD [address], [place], [address], [facility] 0 11:51:55 Essentia l hyperten kristin 49447624 Active 2013 Tc Mckeon MD [address], [place], [address], [facility] 8 13:35:36 Hemorrho ids 03518665 Active 2013 Tc Mckeon MD [address], [place], [address], [facility] 7 09:07:46 Pure hypercho lesterol emia 002993106 Active 2013 Promise Garcia MA null, [facility] 7 13:22:59 Hypercho lesterol emia 57257495 Completed 201202/23/2014 RECORDED 05/26/20 13 11:22AM BY ABDIFATAH HILL MA, ANNOTATI ON/ADDEN DUM Tc Mckeon MD [address], [place], [address], [facility] 6 17:40:10 Essentia l hyperten kristin 14915380 Completed 201302/23/2014 RECORDED 10/30/19 14 7:51AM BY SUZANNE MENDOZA MA, ANNOTATI ON/ADDEN DUM Tc Mckeon MD [address], [place], [address], [facility] 8 13:35:36 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 0135505 Active 2013 STORY: DR UMAIR Mckeon MD [address], [place], [address], [facility] 7 09:05:35 Patient status finding [id number] Completed 201302/03/2015 RECORDED 12/12/19 14 9:07AM BY SUZANNE MENDOZA MA, OFFICE VISIT Tc Mckeon MD [address], [place], [address], [facility] 6 17:40:10 Patient status finding [id number] Completed 201302/23/2014 RECORDED 12/12/19 14 9:03AM BY SUZANNE MENDOZA MA, ANNOTATI ON/ADDEN DUM Tc Mckeon MD [address], [place], [address], [facility] 6 17:40:10 Obesity 920311420 Completed 201308/16/2016 RECORDED 12/12/19 14 9:05AM BY SUZANNE MENDOZA MA, OFFICE VISIT Tc Mckeon MD [address], [place], [address], [facility] 7 09:06:36 Obstruct nelia sleep apnea syndrome 84800599 Active 2013 STORY: CPAP-11C M Tc Mckeon MD [address], [place], [address], [facility] 7 09:07:54 Pain in limb 40974180 Completed 201302/23/2014 IMPRESSI ON: ? ANGINAL EQUIVALE NT VS BURSITIS /ROTATOR CUFF INJURY. GIVEN NEW ECG CHANGES WILL PURSUE CARDIAC EVALUATI ON FIRST. IF RULED OUT AND PAIN PERSISTS WILL SET UP WITH PHYSIATR Y.; RECORDED 10/30/19 14 7:51AM BY SUZANNE MENDOZA MA, ANNOTATI ON/ADDEN DUM Tc Mckeon MD [address], [place], [address], [facility] 6 17:40:10 Immuniza tion refused Completed 201302/23/2014 STORY: FLU; RECORDED 10/30/19 14 7:51AM BY SUZANNE MENDOZA MA, ANNOTATI ON/ADDEN DUM Tc Mckeon MD [address], [place], [address], [facility] 6 17:40:10 Influenz a vaccine needed 55265761004 06 Completed 201102/23/2014 RECORDED 06/30/20 12 1:04PM BY SUZANNE MENDOZA MA, OFFICE VISIT Tc Mckeon MD [address], [place], [address], [facility] 6 17:40:10 Chronic atrial fibrilla tion 295589805 Active 2019 Tc Mckeon MD [address], [place], [address], [facility] 0 06:20:16 Administ ration of prophyla ctic antibiot ic for subacute bacteria l endocard itis Active 2019 Tc Mckeon MD [address], [place], [address], [facility] 0 23:16:12 History of SARS-CoV -2 [id number] 0697359 Active 2021 Tc Mckeon MD [address], [place], [address], [facility] 2 09:10:37 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 668550257 Active 2021 Tc Mckeon MD [address], [place], [address], [facility] 2 15:19:01 Subclini get hypothyr oidism 01215638 Active 2021 Alvarado Bridges PA-C [address], [place], [address], [facility] 2 09:11:19 Neck pain 59223729 Active 2021 Alvarado Bridges PA-C [address], [place], [address], [facility] 2 17:45:11 Traumati c hematoma 841788023 Completed 202205/12/2024 Tc Mckeon MD [address], [place], [address], [facility] 4 16:11:07 Ventricu lar prematur e complex 707001272 Active 2022 Tc Mckeon MD [address], [place], [address], [facility] 3 21:30:57 Prediabe ayala 369590505 Active 2022 Tc Mckeon MD [address], [place], [address], [facility] 3 12:35:31 Intersti tial lung disease 471571930 Active 2022 Tc Mckeon MD [address], [place], [address], [facility] 3 14:16:21 Bilatera l hearing loss 88880749 Active 2023 Tc Mckeon MD [address], [place], [address], [facility] 4 10:56:40 Antibiot ic prophyla xis indicate d 068584715 Active 2023 Tc Mckeon MD [address], [place], [address], [facility] 4 07:35:33 Dyspnea on exertion 54969626 Active 2023 Tc Mckeon MD [address], [place], [address], [facility] 4 07:35:36 Body mass index 30+ - obesity 262106952 Active 2023 Tc Mckeon MD [address], [place], [address], [facility] 4 07:35:39 Memory impairme nt 643379186 Active 2023 Tc Mckeon MD [address], [place], [address], [facility] 4 12:10:27 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 Procedures Surgical History Date Name Laterality Status Provider Name and Address Organization Details Recorded Time 024 bone marrow sampling completed Tc Mckeon MD [address] [address], [place], [address], [facility] 06/03/2024 08:18:16 023 stress echocardiography completed Tc Mckeon MD [address] [address], [place], [address], [facility] 01/09/2023 11:12:46 022 stress echocardiography completed Tc Mckeon MD [address] [address], [place], [address], [facility] 11/09/2021 21:31:45 021 Removal of ureter stone completed Tc Mckeon MD [address] [address], [place], [address], [facility] 11/09/2020 16:21:47 021 Six-Item Cognitive Test completed Suzanne Mendoza MA [facility] 10/06/2020 13:33:12 021 cystoscopy completed Liliana Hanna [facility] 09/20/2020 13:53:57 020 Echo transthoracic completed Tc Mckeon MD [address], [place], [address], [facility] 10/05/2020 20:26:10 020 Mini-Cog Test completed Suzanne Mendoza MA [facility] 09/01/2019 11:31:04 019 procedure on bone marrow completed Leandra Staley [facility] 09/15/2019 11:06:09 019 Mini-Cog Test completed Suzanne Mendoza MA [facility] 08/29/2018 13:10:51 019 Advanced Care Planning completed Tc Mckeon MD [address], [place], [address], [facility] 08/29/2018 13:46:25 018 Fall Risk Assessment completed Christina Ellison [facility] 08/23/2017 13:07:06 018 Mini-Cog Test completed Mary julian MA [facility] 08/23/2017 13:12:47 017 Cardiac Surgery completed Liliana Hanna [facility] 08/08/2017 10:36:45 017 Replacement of aortic valve completed Liliana Hanna [facility] 08/08/2017 10:30:59 017 Colonoscopy completed Tc Mckeon MD [address], [place], [address], [facility] 10/07/2016 21:45:19 000 Coronary Artery Bypass completed Suzanne Mendoza MA [facility] 10/10/2021 08:37:31 999 CABG completed Tc Mckeon MD [address], [place], [address], [facility] 08/23/2017 13:44:02 Imaging Results None recorded. Procedure Notes None recorded. Medical Equipment None Reported. Allergies No known drug allergies Medications Name Sig Start Date Stop Date Status Note LastModified by Organization Details LastModified Time warfarin sodium 5 mg tabs active Not Available Not Available Not Available cartia xt 180 mg cp24 active Not Available Not Available Not Available zetia 10 mg tabs active Not Available Not Available Not Available metoprolo l tartrate 50 mg tabs active Not Available Not Available Not Available amlodipin e besylate 5 mg tabs active Not Available Not Available No t Available micronize d colestipo l hcl 1 gm tabs 01/21 completed Not Available Not Available Not Available nitrostat 0.4 mg subl active Not Available Not Available Not Available diltiazem hcl er 180 mg cp24 active Not Available Not Available Not Available warfarin sodium 2.5 mg tabs active Not Available Not Available Not Available crestor 40 mg tabs active Not Available Not Available Not Available BD Luer-Katy Syringe 3 mL 23 x 1 Take 1 syringe every 4 weeks by miscell. route for 360 days. active Not Available Not Available No t Available amoxicill in 500 mg capsule TAKE 4 CAPSULES BY MOUTH PRIOR TO DENTAL PROCEDUR ES active Not Available Not Available No t Available furosemid e 40 mg tablet Take 1 tablet every day by oral route. active Not Available Not Available No t Available aspirin 81 mg capsule Take 1 capsule every day by oral route. active Not Available Not Available No t Available prednison e 10 mg tablet 05/06 completed Not Available Not Available Not Available doxycycli ne hyclate 100 mg capsule TAKE 1 CAPSULE BY MOUTH TWICE DAILY FOR 10 DAYS 05/10 completed Not Available Not Available Not Available cetirizin e 10 mg tablet Take 1 tablet every day by oral route. 12/18 completed PRN Not Available Not Available Not Available diltiazem CD 180 mg capsule,e xtended release 24 hr take 1 capsule by mouth once daily 09/14 completed Not Available Not Available Not Available metoprolo l succinate ER 50 mg tablet,ex tended release 24 hr TAKE 1 TABLET EVERY DAY active Not Available Not Available No t Available hydrocodo ne 5 mg-acetam inophen 325 mg tablet Take 1 tablet every 6 hours by oral route as needed for 5 days. 02/20 completed Not Available Not Available Not Available phenazopy ridine 200 mg tablet TAKE 1 TABLET BY MOUTH THREE TIMES DAILY( EVERY EIGHT HOURS) NEEDED FOR SPASM 04/11 completed Not Available Not Available Not Available metoprolo l succinate ER 100 mg tablet,ex tended release 24 hr TAKE 1 TABLET EVERY DAY 02/15 completed 02/07/23 ? patient maybe taken 1/2 tab daily. will confirm and will get back to us Not Available Not Available Not Available methylpre dnisolone 4 mg tablet Take 1 tablet twice a day by oral route for 15 days. 11/10 completed Not Available Not Available Not Available warfarin 2.5 mg tablet Take 1 tablet every day by oral route as directed for 90 days. 2023 active Not Available Not Available Not Avai lable niacin ER 750 mg tablet,ex tended release 24 hr TWO TIMES DAILY active Not Available Not Available No t Available amlodipin e 2.5 mg tablet TAKE 1 TABLET EVERY DAY active Not Available Not Available No t Available amlodipin e 5 mg tablet TAKE 1 TABLET EVERY DAY 07/26 completed Not Available Not Available Not Available sulfameth oxazole 800 mg-trimet hoprim 160 mg tablet 11/10 completed Not Available Not Available Not Available amoxicill in 500 mg tablet TAKE 4 TABLET BY MOUTH 1 HOUR BEFORE TREATMEN T 04/10 completed Not Available Not Available Not Available oxycodone -acetamin ophen 5 mg-325 mg tablet TAKE 1 TABLET BY MOUTH EVERY 6 HOURS NEEDED FOR PAIN 04/11 completed Not Available Not Available Not Available tamsulosi n 0.4 mg capsule Take 1 capsule every day by oral route for 90 days. active Not Available Not Available No t Available amlodipin e 10 mg tablet DAILY active Not Available Not Available Not Available cephalexi n 500 mg capsule TAKE 1 CAPSULE BY MOUTH TWICE DAILY FOR 7 DAYS DIRECTED 04/08 completed Not Available Not Available Not Available cyanocoba katy (vit B-12) 1,000 mcg/mL injection solution INJECT 1 ML IN THE MUSCLE EVERY 30 DAYS active Not Available Not Available No t Available warfarin 5 mg tablet TAKE 1 TABLET EVERY DAY 2023 active Not Available Not Available Not Avai lable metoprolo l tartrate 50 mg tablet Take 1 tablet(s ) twice a day by oral route for 90 days. 08/14 completed Not Available Not Available Not Available nitroglyc jaime 0.4 mg sublingua l tablet PLACE 1 TABLET UNDER THE TONGUE EVERY 5 MINUTES NEEDED FOR CHEST PAIN active Not Available Not Available No t Available omeprazol e 20 mg capsule,d elayed release TAKE 1 CAPSULE EVERY DAY BEFORE A MEAL active Not Available Not Available No t Available diltiazem CD 120 mg capsule,e xtended release 24 hr TAKE 1 CAPSULE EVERY DAY active Not Available Not Available No t Available enoxapari n 150 mg/mL subcutane ous syringe Inject 1 mL every day by subcutan eous route. 11/10 completed Not Available Not Available Not Available monteluka st 10 mg tablet TAKE 1 TABLET EVERY DAY active Not Available Not Available No t Available mupirocin 2 % topical ointment APPLY TO THE AFFECTED AREA TWICE DAILY 12/05 completed Not Available Not Available Not Available furosemid e 20 mg tablet TAKE 1 TABLET EVERY MORNING 11/08 completed Not Available Not Available Not Available metoprolo l succinate ER 25 mg tablet,ex tended release 24 hr Take 1 tablet every day by oral route for 90 days. 11/06 completed entered in error Not Available Not Available Not Available ondansetr on 4 mg disintegr ating tablet 02/20 completed Not Available Not Available Not Available fluticaso ne propionat e 50 mcg/actua tion nasal spray,arcenio pension [place] 1 spray every day by intranas al route. 09/01 completed Not Available Not Available Not Available diltiazem ER (XR/XT) 180 mg capsule,e xtended release 24 hr, controlle d Take 1 capsule every day by oral route. active Not Available Not Available No t Available colestipo l 1 gram tablet TAKE 1 TABLET TWICE DAILY active Not Available Not Available No t Available doxycycli ne hyclate 100 mg tablet TAKE 1 TABLET BY MOUTH TWICE DAILY FOR 7 DAYS 12/05 completed Not Available Not Available Not Available ipratropi um bromide 21 mcg (0.03 %) nasal spray INHALE 1 SPRAY IN EACH NOSTRIL FOUR TIMES DAILY NEEDED active Not Available Not Available No t Available Ventolin HFA 90 mcg/actua tion aerosol inhaler INHALE 2 PUFFS EVERY 6 HOURS NEEDED FOR SHORTNES S OF BREATH / WHEEZING active Not Available Not Available No t Available enoxapari n 80 mg/0.8 mL subcutane ous syringe ADMINIST ER 0.8 ML UNDER THE SKIN EVERY 12 HOURS FOR 10 DAYS 10/10 completed Not Available Not Available Not Available ezetimibe 10 mg tablet TAKE 1 TABLET EVERY DAY 2023 active Not Available Not Available Not Avai lable rosuvasta tin 40 mg tablet 2023 active Not Available Not Available Not Avai lable metoprolo l tartrate 25 mg tablet Take 1 tablet twice a day by oral route. 08/14 completed Not Available Not Available Not Available nitrofura ntoin monohydra te/macroc rystals 100 mg capsule 04/11 completed Not Available Not Available Not Available Fish Oil TWO TIMES DAILY 2013 active Not Available Not Available Not Avai lable Aspirin EC DAILY 11/10 completed Not Available Not Available Not Available CoQ-10 100 mg capsule Take 1 capsule every day by oral route. active Not Available Not Available No t Available Calmosept ine 0.44 %-20.6 % topical ointment 04/08 completed Not Available Not Available Not Available Glucosami ne-Chond- MSM Complex 1/2 tab BID active Not Available Not Available No t Available Vitamin D3 50 mcg (2,000 unit) capsule Take 1 capsule every day by oral route. active Not Available Not Available No t Available Shingrix (PF) 50 mcg/0.5 mL intramusc ular suspensio n, kit 10/06 completed Not Available Not Available Not Available Fluzone High-Dose (PF) 180 mcg/0.5 mL intramusc ular syringe inject 0.5 millilit ers intramus cularly 03/01 completed Not Available Not Available Not Available Fluzone High-Dose Quad (PF) 240 mcg/0.7 mL IM syringe ADM 0.7ML IM UTD 10/06 completed Not Available Not Available Not Available BinaxNOW COVID-19 Ag Self Test kit TEST DIRECTED TODAY 04/10 completed Not Available Not Available Not Available Vitals Date Recorded Body height Body mass index (BMI) Body weight Heart rate Oxygen saturation Oxygen saturation in Arterial blood by Pulse oximetry Body temperature Systolic blood pressure Diastolic blood pressure Provider Name and Address Organization Details Last Updated DateTime 4 165.1 cm 32 kg/m2 79907.1 4 g 77 /min 98 % 98 % 98.1 [degF] 132 mm[Hg] 81 mm[Hg] Katy Russell [facility] 4 15:58:56 Social History Question Answer Notes LastModified by Organizat ion Details LastModified Time Tobacco Smoking Status Never Smoker Not Available [employer] 06/14/2020 03:36:41 Do You Have An Advance Directive? Yes HCP/ -Priti Information not available 05/24/2022 What Is Your Level Of Alcohol Consumption? Occasional [id number] Information not available 06/14/2020 Is Blood Transfusion Acceptable In An Emergency? Yes [id number] Information not available 06/14/2020 What Is Your Level Of Caffeine Consumption? Moderate Coffee 1 -1/2 Daily Information not available 11/11/2023 How Much Tobacco Do You Chew? None [id number] Information not available 06/14/2020 In The 14 Days Before Symptom Onset, Have You Had Close Contact With A Laboratory-conf irmed COVID-19 While That Case Was Ill? No Information not available 05/24/2022 In The 14 Days Before Symptom Onset, Have You Had Close Contact With A Person Who Is Under Investigation For COVID-19 While That Person Was Ill? No Information not available 05/24/2022 Have You Been To An Area Known To Be High Risk For COVID-19? No Information not available 05/24/2022 Are You Currently Employed? Yes [id number] Information not available 06/14/2020 What Type Of Diet Are You Following? REGULAR [id number] Information not available 06/14/2020 Which Illicit Or Recreational Drugs Have You Used? None [id number] Information not available 06/14/2020 Do You Or Have You Ever Used E-cigarettes Or Vape? Never Used Electronic Cigarettes Information not available 05/24/2022 What Is Your Occupation? [place] [id number] Information not available 06/14/2020 Live Alone Or With Others? With Others 11/11/23 And 1 New Puppy Information not available 11/11/2023 Do You Take Precautions To Prevent Distracted Driving? Yes [email or web address] pablo Information not available 08/10/2015 How Often Do You Need To Have Someone Help You When You Read Instructions, Pamphlets, Or Other Written Material From Your Doctor Or Pharmacy? Never [email or web address] Information not available 08/10/2015 Have You Served In The ? No Information not available 08/16/2016 Have You Or Anyone In Your Household Had Any Of The Following Symptoms In The Last 14 Days: Sore Throat, Cough, Chills, Body Aches For Unknown Reasons, Shortness Of Breath For Unknown Reasons, Loss Of Smell, Loss Of Taste, Fever At Or Greater Than 100 Degrees Fahrenheit? No Information not available 03/01/2020 Are You Or Anyone In Your Household A Health Care Provider Or Emergency Responder? No Information not available 03/01/2020 To The Best Of Your Knowledge Have You Been In Close Proximity To Any Individual Who Tested Positive For COVID-19? No Information not available 03/01/2020 *AWV ONLY* Are You Presently Prescribed Opioid Medication By PCP Or Specialist? If YES -Provider Assess The Benefit For Other, Non-opioid Pain Therapies Instead, Even If The Patient Does Not Have OUD But Is Possibly At Risk. No Information not available 10/06/2020 Have You Recently Traveled To A COVID-19 High Risk Area Or Gathering In The Last 10 Days? No Information not available 10/06/2020 What Was The Date Of Your Most Recent Tobacco Screening? 11/11/2023 Information not available 11/11/2023 How Many Children Do You Have? 3 2 Sons, 1 Dtr 3 Grandchildren [email or web address] Information not available 10/10/2021 Do You Use Protection During Sex? No [id number] Information not available 06/14/2020 Do You Use Your Seat Belt Or Car Seat Routinely? Yes Information not available 10/10/2021 Seat Belts Used Routinely Yes Information not available 05/24/2022 Are You Sexually Active? Yes [id number] Information not available 06/14/2020 Smoke Alarm In Home Yes Information not available 05/24/2022 Do You Have Smoke And Carbon Monoxide Detectors In Your Home? Yes Information not available 10/10/2021 At What Age Did You Start Smoking Tobacco? 2 [id number] Information not available 06/14/2020 Are You Passively Exposed To Smoke? No Information not available 08/16/2016 Do You Or Have You Ever Used Smokeless Tobacco? Never Used Smokeless Tobacco [id number] Information not available 06/14/2020 How Much Tobacco Do You Smoke? No [id number] Information not available 06/14/2020 Do You Use Any Illicit Or Recreational Drugs? No Information not available 05/24/2022 Do You Use Sunscreen Routinely? No [id number] Information not available 06/14/2020 How Many Years Have You Smoked Tobacco? 0 [id number] Information not available 06/14/2020 Do You Or Have You Ever Used Any Other Forms Of Tobacco Or Nicotine? No Information not available 05/24/2022 Sex: Unknown Functional Status Question Answer Note LastModified by Organizat ion Details LastModified Time Are you able to walk? YESWOREST Information not available 05/24/2022 Are you able to care for yourself? Yes [id number] Information not available 06/14/2020 What is your exercise level? None work related Information not available 11/11/2023 Mental Status None recorded. Family History Relationship Description Onset Age of this Age Resolved Age Notes LastModified by Organization Details LastModified Time Mother Malignant tumor of lung abolcun Not available 2015 08:23:52 Mother Hypertensive disorder abolcun Not available 2015 08:23:52 Mother Hypercholest erolemia awychowski Not available 08/23 13:40:38 Father Malignant neoplasm of bone Not available 2021 13:25:17 Father Malignant tumor of pancreas Not available 2021 13:25:17 Sister Cataract Not available 13:25:17 Medical History Condition Response Coronary Artery Disease N Other N Gout N Kidney Stones Y Blood Diseases N Hyperthyroidism N Breast Cancer N mrsa exposure N Hypothyroidism N Depression N COPD N Lung Disease N Developmental or Behavioral Disorders N Defects or Inherited Disease N Breast Problem N Anesthesia Complications N Headaches/Migraines N Varicose Veins N Anxiety Disorder N Muscle, Joint, or Bone Problems N Obesity N Vision or Eye Problems N Arthritis N Head Injury/Concussion N Polyps N Infertility N Mental Disorder N Congenital Anomalies N Acid Reflux (GERD) N Cancer N Stroke N ADHD N Endometriosis N High Cholesterol Y Liver Disease N Headaches N Fibromyalgia N Kidney Disease N Heart Problems Y Ear or Hearing Problems Y Hospitalizations N Thyroid Problems N GI Problems N Developmental Delay N Acne N Skin Problems N Eating Disorder N Anemia Y Constipation N Bladder Problems N Mental Illness N Ovarian Cancer N Diabetes N Bedwetting N Blood Transfusions N Seizures/Epilepsy N Heart Problems/Murmur N Tuberculosis N AIDS/HIV N Congestive Heart Failure (CHF) N Eczema N Diverticulitis N Abuse/Domestic Violence N Asthma N Allergies N Reflux/GERD N Hepatitis N Heart Disease Y Pulmonary Embolism N Hypertension Y Chicken Pox N Autism Spectrum Disorder (ASD) N Osteoporosis N Immunizations Vaccine Type Date Status Note Provider Nam e and Address Organization Details Recorded Time influenza, unspecified formulation 7 completed Not Available [facility] 05/06/2023 12:45:55 Pneumococcal conjugate PCV 13 7 completed DA Robertson [facility] 11/07/2021 10:33:31 Influenza, high-dose, trivalent, PF 8 completed DA Robertson [facility] 11/07/2021 10:33:31 Influenza, high-dose, trivalent, PF 9 completed DA Robertson [facility] 11/07/2021 10:33:30 zoster recombinant 0 completed DA Robertson [facility] 11/07/2021 10:33:30 Influenza, split virus, quadrivalent, preservative 0 completed DA Robertson [facility] 10/06/2020 13:23:40 zoster recombinant 0 completed DA Robertson, [facility] 11/07/2021 10:33:30 COVID-19, mRNA, LNP-S, PF, 30 mcg/0.3 mL dose 1 completed DA Robertson [facility] 11/07/2021 10:33:30 COVID-19, mRNA, LNP-S, PF, 30 mcg/0.3 mL dose 1 completed DA Robertson, [facility] 11/07/2021 10:33:31 Influenza, split virus, quadrivalent, preservative 1 completed DA Robertson, [facility] 11/07/2021 10:33:30 Influenza, high-dose, quadrivalent, PF 1 completed DA Robertson, [facility] 11/07/2021 10:33:30 Influenza, adjuvanted, trivalent, PF 7 completed DA Robertson, [facility] 11/07/2021 10:33:31 pneumococcal polysaccharide PPV23 9 completed DA Javed [facility] 05/10/2022 14:43:17 Td (adult), 2 Lf tetanus toxoid, preservative free, adsorbed 0 completed DA Javed, [facility] 05/10/2022 14:43:17 Influenza, high-dose, quadrivalent, PF 2 completed DA Javed, [facility] 05/24/2022 13:37:42 Tdap 0 completed Not Available [facility] 02/23/2014 13:49:19 Influenza, high-dose, quadrivalent, PF 3 completed Tc Mckeon MD [address], [phone], [facility] 05/06/2023 13:46:44 Influenza, high-dose, trivalent, PF 4 completed Tc Mckeon MD [address] [address], [place], [phone], [facility] 05/27/2024 22:05:05 Past Encounters Encounter ID Performer Location Encounter Start Date Encounter Closed Date Diagnosis/Indication Diagnosis SNOMED-CT Code Diagnosis ICD10 Code [id number] Tc Mckeon MD Main Office [address] [phone] 05/12/2024 15:42:53 05/12/2024 16:25:37 Influenza vaccine needed 0474717015 106 Z23 Dyspnea on exertion 6084 5006 R06.09 Essential hypertension 63488546 I10 Pure hypercholesterolemia 491537373 E78.01 Obstructiv e sleep apnea syndrome 07498274 G47.33 Chronic at rial fibrillation 899293781 I48.21 Health Concerns Section Related Observation LastModified by Organization Detai ls LastModified Time None Recorded Concern Status LastModified by Organization Details LastModified Time None Recorded Payers Encounter Date Sequence Insurance Name Policy Number Policy Luong Covered Member ID Luong Member ID Guarantor Name 05/12/2024 2 [facility] [id number] Amandeep Roque [id number] Amandeep Roque 05/12/2024 1 [place] [employer] Amandeep Roque [id number] Amandeep Roque Notes Date Note Type Note Provider Name and Address Organization Details Recorded Time 4 text/html here for f/u chf, htn dyspnea was much better on prednisone no cp, still has sob at rest but more likely has chisholm upstairs had passed pft's in [address] 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 Tc Mckeon MD [address] [address], [place], [address], [facility] 05/27/2024 22:09:11 4 text/html AnemiaReported bypatient.Severity:Macroc ytic (MCV>100) Context:previous Hemoglobin:(11.8);previou s Hematocrit:(37.4) Associated Symptoms:no shortness of breath; no chest pain; no melena; no blood in stool; no palpitationsNotes:Pancyto penia has been stable. Dr Longoria does not feel this is contributing to his CHISHOLM.Atrial FibrillationReported bypatient.Location:chest Duration:lasts seconds Context:at rest Associated Symptoms:no chest discomfort; no dyspnea; no decline in exercise capacity; no fatigue; no associated dizziness; no awareness of palpitationNotes:Has been on warfarin without incident.HyperlipidemiaRe ported bypatient.Type of hyperlipidemia:hyperchole sterolemia Control:usually well controlled; at goal Current Therapy:currently taking: (rosuvastatin); last cholesterol level: (109); last LDL level: (50); last triglyceride level: (124); last HDL level: (37) Compliance:compliant; compliant with diet; exercises Complications:coronary artery disease;peripheral artery disease;cardiovascular diseaseHypertension F/UReported bypatient.Associated Symptoms:no dizziness; no lightheadedness; no chest pain; no palpitations; no edema;shortness of breath Lifestyle:regular exercise; limiting/avoiding salt Medications:taking medications as directed; no side effects from medicationNotes:Remains on diuretic which was started for elevated BNP but this did not help his breathing and recent echo shoewed preserved EFdyspneaReported bypatient.Notes:Better on steroids. Tc Mckeon MD [address] [address], [place], [address], [facility] 05/27/2024 22:09:11
== END 2024-07-21 12:53 | disposition home or self-care (01) ==
LOC: HO.CT 12:52
PROVIDERS: PCP Pediatrics; Visit Provider Hospitalist
DX: J84.9 Interstitial pulmonary disease, unspecified (principal)
CPT/HCPCS: 71250

== ENCOUNTER 2024-09-14 10:36 | Outpatient (AMB) | payer MEDICARE, SELFPAY ==
--- NOTE | 2024-09-14 10:41 | A.OFFVIS_ITS ---
Vital Signs 09/14/24 10:42 Height 5 ft 4 in Weight 202 lb 13.204 oz BMI 34.8 BP 130/78 Blood Pressure Location Rt brachial Position Sitting Pulse 73 Pulse Source Pulse Oximeter Pulse Oximetry (%) 98 Oxygen Delivery Method Room Air Intake Visit Reasons: dyspnea Allergies No Known Allergies Allergy (Verified 09/14/24 10:44) HPI Comments Details: The patient is a 74-year-old gentleman presenting with symptoms of progressive dyspnea. The patient states that he gets short of breath when going up a flight of stairs. Will works in the [employer] now for more than 20 years. He is very active he wakes up early in the morning and he has been working most days. The patient has been evaluated for dyspnea by Cardiology. 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 He also has atrial fibrillation and has been on rate-controlling agents and anticoagulation. Therefore, the patient underwent additional studies to assess his dyspnea symptoms. He did undergo pulmonary function studies that do not have available. Apparently he was told that they appeared to be good for his age. I will request them from his primary care. I did look in the [facility] system but I can not locate them there. The patient also had a CT scan of the chest at [facility]. I personally reviewed the CT scan with him and his . Patient has only minimal changes. Does have appeared to have some mosaic pattern primarily at the bases suggesting air trapping in addition to that does have some reticular changes in the periphery in the bases suggesting some degree of scarring. 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 But explained to the patient and his that the findings on the CT scan do not explain the full picture. We did go for brief walking oximetry. We were walking on hallway a decent pace and the patient did very well patient's heart rate did go up to 116 regularly regular due to his AFib and his pulse ox was 98%. Subsequently after that we did go a flight of stairs the patient is symptoms worsened once we went up 3 flights of stairs. He did take a break he was visibly breathless. At that point his pulse ox was 96% and heart rate around 105 beats per minute. Once he rested after 2 minutes we were able to go downstairs again. He did well otherwise. 06/03/2023 the patient is here for a pulmonary follow-up visit. He continues to have dyspnea on exertion specially going up a flight of stairs but overall okay. He did undergo a brief course of prednisone to see if this provides some relief any did indeed feel better after being on the prednisone. He is now off the prednisone altogether which is also good. His blood sugars were stable and he was on the therapy. I did again review the CT scan of the chest with some degree of interstitial changes but not significant. Therefore I do not believe that he needs additional steroids at this time. 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 Will plan to have him come back in 6 months with a chest x-ray to see if there is any progression of the pneumoconiosis. If there is any worsening interstitial lung disease or symptoms then we can consider more sy stemic therapy. Otherwise he can also call and we can consider inhaled cortical steroids but I do not believe that the going to be as effective for him. 11/14/2023 the patient is here for a pulmonary follow-up visit. The patient has been doing well. Still complains of dyspnea on exertion at baseline. Mainly when going up a flight of stairs or going up inclines. 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 He has no longer on any prednisone or any therapy. He does have a rescue inhaler but he has not needed it. He does have a history atrial fibrillation so he has to be careful with that. He did have a chest x-ray which we personally reviewed. It appears to be completely intact without any evidence of any pneumonitis or scarring. Seems like he is doing very well therefore we do not have to consider additional therapies. Will go ahead and have him repeat the CT scan in early 2024 to assess for any progression of interstitial lung disease. 09/14/2024 the patient is here for a pulmonary follow-up visit. Overall he is doing okay. He was diagnosed with Parkinson's and he was started on medication for that. He will be following up with a neurologist soon. In the meantime he is also started on cardiac medications and is also adjusting to those. Respiratory dawson he seems to be doing okay. Still complains of dyspnea on exertion [id number] severity. He did undergo a CT scan of the chest that we personally reviewed. Appears that his mosaic pattern is overall better. The interstitial changes are stable which are reassuring. He does have pulmonary nodules largest 1 in the right hemothorax measuring 13 mm in size. I did look at his previous CT scan from 2022 in the nodular density was measuring around 12 mm so therefore will go ahead and request a CT scan in a year's time. Start the nodules also be followed then. She has any issues before the next visit he can always call for an earlier assessment. He does have a rescue inhaler that he can use as needed. No additional medications warranted. [facility] Medical History (Updated 09/14/24 @ 22:31 by Klaus Adames MD) Pulmonary nodules Valvular heart disease Anemia Afib ILD (interstitial lung disease) Dyspnea Social History Patient Tobacco Use Status: Never used Tobacco Review of Systems Const Denies fever(s) Eyes Denies change in vision ENT Denies change in voice Card Denies chest pain and Reports dyspnea on exertion Resp Reports dyspnea on exertion and Denies wheezing GI Reports no additional complaints Musc Reports no additional complaints Skin/Breast Denies rash Neuro Reports no additional complaints Kel/Lymph Denies easy bleeding, Denies easy bruising and Denies lymphadenopathy Aller/Immun Denies wheezing Physical Exam Vital Signs: Last Vital Signs Pulse 73 09/14/24 10:42 BP 130/78 09/14/24 10:42 Pulse Ox 98 09/14/24 10:42 Oxygen Delivery Method Room Air 09/14/24 10:42 BMI result Body Mass Index 34.8 Const General: comfortable HEENT Head: Yes atraumatic Neck Neck: Yes supple Chest Chest palpation & inspection: normal inspection of the chest Resp Effort & Inspection: normal respiratory effort Auscultation: no crackles, no rhonchi, no wheezes and diminished lung sounds Cardio Rhythm: abnormal rhythm Heart sounds: S1 normal heart sound present, S2 normal heart sound present and Murmur heart sound present GI Palpation (GI): Soft to palpation Skin General skin exam: no rashes or lesions noted Extrem General: Yes no clubbing, cyanosis or edema Assessment & Plan Assessment & Plan (1) Dyspnea: Code(s): R06.00 - Dyspnea, unspecified Category: Medical Qualifiers: Dyspnea type: dyspnea on exertion Qualified Code(s): R06.09 - Other forms of dyspnea (2) ILD (interstitial lung disease): Code(s): J84.9 - Interstitial pulmonary disease, unspecified Category: Medical (3) Afib: Code(s): I48.91 - Unspecified atrial fibrillation Category: Medical Qualifiers: Atrial fibrillation type: paroxysmal Qualified Code(s): I48.0 - Paroxysmal atrial fibrillation (4) Anemia: Code(s): D64.9 - Anemia, unspecified Category: Medical Qualifiers: Anemia type: other cause Other causes of anemia: other cause, not classified Qualified Code(s): D64.89 - Other specified anemias (5) Valvular heart disease: Code(s): I38 - Endocarditis, valve unspecified Category: Medical (6) Pulmonary nodules: Code(s): R91.8 - Other nonspecific abnormal finding of lung field Category: Medical Plan NINA as needed CT chest August 2025 F/U August 2025 Orders: Orders CT chest wo IV con 08/24/25 R91.8 - Other nonspecific abnormal finding of lung field Coding Level of Care Code Est Pt Level 4 (35209) Diagnoses Dyspnea on exertion R06.09 Dyspnea type: dyspnea on exertion ILD (interstitial lung disease) J84.9 Paroxysmal atrial fibrillation I48.0 Atrial fibrillation type: paroxysmal Anemia due to other cause, not classified D64.89 Anemia type: other cause Other causes of anemia: other cause, not classified Valvular heart disease I38 Pulmonary nodules R91.8 Time Spent (min) 17
[2024-09-14 10:42] VITALS: BP 130/78; PULSE 73; O2SAT 98; BMI 34.8
--- OUTSIDE RECORDS SUMMARY | 2024-09-14 11:25 | XMS_ITS ---
Author Organization [facility] Address [address] [place] [address] Phone Care Team Providers Care Video Editor Name Role Phone [facility] Unavailable [phone] Tc Mata MD Primary Care Provider [phone] Plan of Treatment No Plan of Treatment Recorded Assessments Includes: Assessments for all patient encounters No Assessments Recorded Medical Equipment - Implanted Devices Includes: Current and historical Devices No Medical Equipment Recorded Medications Administered Includes: Administered Medications in patient's chart No Administered Medications Recorded Results Includes: Results from 09/14/2023 through 09/14/2024 No Results Recorded For Specified Dates History [...] nelia Dates 1 - Medicare Part B [facility] [id number] Amandeep Simpson 2 - [employer] [id number] Amandeep Simpson Clinical Notes Includes: Signed Clinical Notes starting from 07/22/2022 No Clinical Notes Recorded
--- OUTSIDE RECORDS SUMMARY | 2024-09-14 11:25 | XMS_ITS ---
Author Name [facility] Organization Unknown Problems Problem Status Onset Date Problem Type Date of Resoluti on Source Shuffling gait [facility]
--- OUTSIDE RECORDS SUMMARY | 2024-09-14 11:26 | XMS_ITS | Data Portability ---
Author Organization [facility], Main Office Address [address] [place] [address] Care Team Providers Care Rn Allergy Name Role Phone TC MCKEON Primary Care Provider AGAPITO FERNANDES [place] Attorney SAAD LONGORIA Bevel Operator MARCO ANTONIO HASSAN Urologist [phone] LYNNE BLOCK Clip On Sunglasses Inspector AGAPITO JO Body Shop Supervisor AL ADAMES Senior Logistics Manager [phone] Assessment Encounter Date Assessment Date Assessment LastModified by Organization Details LastModified Time 08/28/2024 08/28/2024 This service was provided using telemedicine. Patient consented to video & audio visit Patient was located in the [facility]. Provider was located in the office. No other persons participated in the telemedicine visit except for the patient unless otherwise indicated here. {{}} Total time of visit was 16 minutes. [email or web address] Not available 08/28/2024 15:41:07 Plan of Treatment Reminders Order Date Submit Date Provider Last Modified By Organization Details Last Modified Time Details Appointments [id number] 2024 02:15P M Tc Mckeon MD Not available Not available Not available Lab vitamin B12, serum 2023 024 [facility], [address] [place], [address], 04/14/2024 20:06:20 folate, serum 2023 024 [facility], [address] [place], [address], 04/14/2024 20:06:17 ferritin, serum or plasma 2023 024 [facility], [address] [place], [address], 04/14/2024 20:06:21 retic count, blood 2023 024 [facility], [address], [place], [address], 04/14/2024 20:06:22 CBC w/ auto diff 2023 024 [facility], [address], [place], [address], 04/14/2024 20:06:14 TIBC (total iron-bind ing capacity) , serum 2023 024 [facility], [address] [place], [address], 04/14/2024 20:06:17 pro BNP (pro B-type natriuret ic peptide), serum or plasma [facility]23 [facility] [address], [address], 04/14/2024 20:06:18 magnesium , serum or plasma 2023 024 [facility], [address] [facility] [address], [place], [address], 04/14/2024 20:06:21 CK (creatine kinase), total, serum 2023 024 [facility], [address] [facility], [address] [address], [place], [address], 04/14/2024 20:06:19 methylmal hollie, QN, serum or plasma 2023 024 [facility], [address] [facility], [address] [address], [place], [address], 04/14/2024 20:06:19 TSH, ultra-sen sitive, serum 2023 024 [facility], [address] [facility], [address] [address], [place], [address], 04/14/2024 20:06:18 CMP, serum or plasma 2023 024 [facility], [address] [facility], [address] [address], [place], [address], 04/14/2024 20:06:16 homocyste ine, serum or plasma 2023 024 [facility], [address] [facility], [address] [address], [place], [address], 08/10/2024 14:19:48 borrelia burgdorfe ri IgG + IgM + total panel, IA, serum 2023 024 [facility], [address] [facility], [address] [address], [place], [address], 08/10/2024 14:19:47 ESR (erythroc yte sedimenta tion rate), blood 2023 024 [facility], [address] [facility], [address] [address], [place], [address], 08/10/2024 14:19:49 CBC w/ auto diff 2024 025 [facility], [address] [facility], [address] [address], [place], [address], 09/01/2024 08:07:18 CMP, serum or plasma 2024 025 [facility], [address] [facility], [address] [address], [place], [address], 09/01/2024 08:07:[address] referral - for eval of memory and movement disorders , 2023 024 [facility], [address] [facility], [place], [address], 08/28/2024 16:20:36 Procedures None recorded. Surgeries None recorded. Imaging None recorded. Medication Orders cephalexi n 500 mg capsule 2023 024 [facility] #[id number], [address] [address], [place], [place], [id number], 04/08/2024 09:50:25 Calmosept ine 0.44 %-20.6 % topical ointment 2023 024 [facility] #00599, [address] [address], [place], [place], [id number], 04/08/2024 09:50:10 amoxicill in 500 mg capsule 2023 024 [facility] #[id number], [address] [address], [place], [place], [id number], 02/18/2024 14:36:46 warfarin 2.5 mg tablet 2023 024 [facility] #53692, [address] [address], [place], [place], [id number], 05/12/2024 16:15:04 carbidopa 10 mg-levodo pa 100 mg tablet 2023 024 [facility] #41631, [address] [address], [place], [place], [id number], 07/30/2024 10:04:52 escitalop marc 5 mg tablet 2024 025 [facility] #61242, [address] [address], [place], [place], [id number], 08/28/2024 15:37:18 Patient TargetsNo targets recorded. Patient Instructions Encounter Date Encounter Id Patient Instructions Last Modified By Organization Details Last Modified Time 02/18/2024 [id number] At [facility] follow up visit, all current and discharge medications (OTC, herbal therapies, supplements) reviewed and reconciled with patient and or caregiver, including potential side effects, drug interactions, instructions, and the consequences of not taking medication. Reviewed potential barriers to medication adherence, such as side effects from medication or cost of medication. [email or web address] Not available 02/18/2024 13:50:52 04/08/2024 [id number] Medications (OTC, herbal therapies, supplements) reviewed and reconciled with patient and or caregiver, including potential side effects, drug interactions, instructions, and the consequences of not taking medication. Reviewed potential barriers to medication adherence, such as side effects from medication or cost of medication. [email or web address] Not available 04/08/2024 21:38:16 05/12/2024 [id number] high cholesterol: care instructions [email or web address] Not available 05/12/2024 16:14:50 high blood pressure: care instructions [email or web address] Not available 05/12/2024 16:14:50 learning about high blood pressure [email or web address] Not available 05/12/2024 16:14:50 Reason for Referral Neurologist Referral for Reva ffling gait for eval of memory and movement disorders, Referring Physician: Tc Mckeon, Family Medicine, Encounter Date: 07/30/2024 Results Created Date Observation Date Name Description Value Unit Range Abnormal Flag Note LastModifiedBy Organization Detail LastModifiedTime 02/04/20 24 02/05/2024 PROTH ROMBI N TIME (PT) INR 2.2 0.9-1. 2 above high normal Refer ence inter estrella is for non-a ntico agula helen patie nts. Sugge sted INR thera peuti c range for Vitam in K antag onist thera py: Stand eugene Dose (mode rate inten sity thera peuti c range ): 2.0 - 3.0 Highe r inten sity thera peuti c range 2.5 - 3.5 Not Available [facility] ([facility]) [address] [facility], [place], [address], 02/05/2024 06:09:15 02/04/20 24 02/05/2024 PROTH ROMBI N TIME (PT) prothrombin time 21.8 sec 9.1-12 .0 above high normal Not Available [facility] ([facility]) [address] [place], [address], 02/05/2024 06:09:15 02/18/20 24 02/18/2024 PROTH ROMBI N TIME (PT) INR 2.0 0.9-1. 1 above high normal Not Available [address], [address], 02/18/2024 15:14:39 02/18/20 24 02/18/2024 PROTH ROMBI N TIME (PT) prothrombin time 20.5 sec 9.2-11 .4 above high normal Not Available [address], [address], 02/18/2024 15:14:39 04/08/20 24 04/08/2024 CBC WITH DIFFE RENTI AL/PL ATELE T WBC 1.8 x10e3 /uL 3.4-10 .8 alert low Not Available [facility] ([facility]) [address] [place], [address], 04/14/2024 20:06:14 04/08/20 24 04/08/2024 CBC WITH DIFFE RENTI AL/PL ATELE T RBC 2.91 x10e6 /uL 4.14-5 .80 below low normal Not Available [facility] ([facility]) [address] [place], [address], 04/14/2024 20:06:14 04/08/20 24 04/08/2024 CBC WITH DIFFE RENTI AL/PL ATELE T hemoglobin 9.9 g/dL 13.0-1 7.7 below low normal Not Available [facility] ([facility]) [address] [place], [address], 04/14/2024 20:06:14 04/08/20 24 04/08/2024 CBC WITH DIFFE RENTI AL/PL ATELE T hematocrit 30.7 % 37.5-5 1.0 below low normal Not Available [facility] ([facility]) [address] [place], [address], 04/14/2024 20:06:14 04/08/20 24 04/08/2024 CBC WITH DIFFE RENTI AL/PL ATELE T MCV 106 fL 79-97 above high normal Not Available [facility] ([facility]) [address] [place], [address], 04/14/2024 20:06:14 04/08/20 24 04/08/2024 CBC WITH DIFFE RENTI AL/PL ATELE T MCH 34.0 pg 26.6-3 3.0 above high normal Not Available [facility] ([facility]) [address] [place], [address], 04/14/2024 20:06:14 04/08/20 24 04/08/2024 CBC WITH DIFFE RENTI AL/PL ATELE T MCHC 32.2 g/dL 31.5-3 5.7 normal Not Available [facility] ([facility]) [address] [place], [address], 04/14/2024 20:06:14 04/08/20 24 04/08/2024 CBC WITH DIFFE RENTI AL/PL ATELE T RDW 16.0 % 11.6-1 5.4 above high normal Not Available [facility] ([facility]) [address] [place], [address], 04/14/2024 20:06:14 04/08/20 24 04/08/2024 CBC WITH DIFFE RENTI AL/PL ATELE T platelets 100 x10e3 /uL 150-45 0 alert low Not Available [facility] ([facility]) [address] [place], [address], 04/14/2024 20:06:14 04/08/20 24 04/08/2024 CBC WITH DIFFE RENTI AL/PL ATELE T neutrophils 52 % not estab. normal Not Available [facility] ([facility]) [address] [facility], [place], [address], 04/14/2024 20:06:14 04/08/20 24 04/08/2024 CBC WITH DIFFE RENTI AL/PL ATELE T lymphs 38 % not estab. normal Not Available [facility] ([facility]) [address] [facility], [place], [address], 04/14/2024 20:06:14 04/08/20 24 04/08/2024 CBC WITH DIFFE RENTI AL/PL ATELE T monocytes 10 % not estab. normal Not Available [facility] ([facility]) [address] [facility], [place], [address], 04/14/2024 20:06:14 04/08/20 24 04/08/2024 CBC WITH DIFFE RENTI AL/PL ATELE T eos 0 % not estab. normal Not Available [facility] ([facility]) [address] [facility], [place], [address], 04/14/2024 20:06:14 04/08/20 24 04/08/2024 CBC WITH DIFFE RENTI AL/PL ATELE T basos 0 % not estab. normal Not Available [facility] ([facility]) [address] [facility], [place], [address], 04/14/2024 20:06:14 04/08/20 24 04/08/2024 CBC WITH DIFFE RENTI AL/PL ATELE T immature cells FLOAT TENDER Not Available [facility] ([facility]) [address] [facility], [place], [address], 04/14/2024 20:06:14 04/08/20 24 04/08/2024 CBC WITH DIFFE RENTI AL/PL ATELE T neutrophils (absolute) 0.9 x10e3 /uL 1.4-7. 0 below low normal Not Available [facility] ([facility]) [address] [facility], [place], [address], 04/14/2024 20:06:14 04/08/20 24 04/08/2024 CBC WITH DIFFE RENTI AL/PL ATELE T lymphs (absolute) 0.7 x10e3 /uL 0.7-3. 1 normal Not Available [facility] ([facility]) [address] [facility], [place], [address], 04/14/2024 20:06:14 04/08/20 24 04/08/2024 CBC WITH DIFFE RENTI AL/PL ATELE T monocytes(ab solute) 0.2 x10e3 /uL 0.1-0. 9 normal Not Available [facility] ([facility]) [address] [place], [address], 04/14/2024 20:06:14 04/08/20 24 04/08/2024 CBC WITH DIFFE RENTI AL/PL ATELE T eos (absolute) 0.0 x10e3 /uL 0.0-0. 4 normal Not Available [facility] ([facility]) [address] [facility], [place], [address], 04/14/2024 20:06:14 04/08/20 24 04/08/2024 CBC WITH DIFFE RENTI AL/PL ATELE T baso (absolute) 0.0 x10e3 /uL 0.0-0. 2 normal Not Available [facility] ([facility]) [address] [place], [address], 04/14/2024 20:06:14 04/08/20 24 04/08/2024 CBC WITH DIFFE RENTI AL/PL ATELE T immature granulocytes 0 % not estab. Not Available [facility] ([facility]) [address] [place], [address], 04/14/2024 20:06:14 04/08/20 24 04/08/2024 CBC WITH DIFFE RENTI AL/PL ATELE T immature grans (abs) 0.0 x10e3 /uL 0.0-0. 1 Not Available [facility] ([facility]) [address] [facility], [place], [address], 04/14/2024 20:06:14 04/08/20 24 04/08/2024 CBC WITH DIFFE RENTI AL/PL ATELE T NRBC FLOAT TENDER Not Available [facility] ([facility]) [address] [facility], [place], [address], 04/14/2024 20:06:14 04/08/20 24 04/08/2024 CBC WITH DIFFE RENTI AL/PL ATELE T hematology comments: FLOAT TENDER Not Available [facility] ([facility]) [address] [facility], [place], [address], 04/14/2024 20:06:14 04/08/20 24 04/08/2024 COMP. METAB OLIC PANEL (14) glucose 87 mg/dL 70-99 normal Not Available [facility] ([facility]) [address] [facility], [place], [address], 04/14/2024 20:06:16 04/08/20 24 04/08/2024 COMP. METAB OLIC PANEL (14) sodium 141 mmol/ L 134-14 4 normal Not Available [facility] ([facility]) [address] [facility], [place], [address], 04/14/2024 20:06:16 04/08/20 24 04/08/2024 COMP. METAB OLIC PANEL (14) potassium 4.1 mmol/ L 3.5-5. 2 normal Not Available [facility] ([facility]) [address] [facility], [place], [address], 04/14/2024 20:06:16 04/08/20 24 04/08/2024 COMP. METAB OLIC PANEL (14) chloride 105 mmol/ L 96-106 normal Not Available [facility] ([facility]) [address] [facility] [place], [address], 04/14/2024 20:06:16 04/08/20 24 04/08/2024 COMP. METAB OLIC PANEL (14) calcium 9.0 mg/dL 8.6-10 .2 normal Not Available [facility] ([facility]) [address] [facility] [place], [address], 04/14/2024 20:06:16 04/08/20 24 04/09/2024 COMP. METAB OLIC PANEL (14) BUN 16 mg/dL 8-27 normal Not Available [facility] ([facility]) [address] [facility] [place], [address], 04/14/2024 20:06:16 04/08/20 24 04/09/2024 COMP. METAB OLIC PANEL (14) creatinine 1.02 mg/dL 0.76-1 .27 normal Not Available [facility] ([facility]) [address] [facility] [place], [address], 04/14/2024 20:06:16 04/08/20 24 04/09/2024 COMP. METAB OLIC PANEL (14) eGFR 78 mL/mi n/1.7 3 >59 normal Not Available [facility] ([facility]) [address] [facility] [place], [address], 04/14/2024 20:06:16 04/08/20 24 04/09/2024 COMP. METAB OLIC PANEL (14) BUN/creatini ne ratio 16 10-24 normal Not Available [facility] ([facility]) [address] [facility] [place], [address], 04/14/2024 20:06:16 04/08/20 24 04/09/2024 COMP. METAB OLIC PANEL (14) carbon dioxide, total 23 mmol/ L 20-29 normal Not Available [facility] ([facility]) [address] [facility], [place], [address], 04/14/2024 20:06:16 04/08/20 24 04/09/2024 COMP. METAB OLIC PANEL (14) protein, total 7.3 g/dL 6.0-8. 5 normal Not Available [facility] ([facility]) [address] [place], [address], 04/14/2024 20:06:16 04/08/20 24 04/09/2024 COMP. METAB OLIC PANEL (14) albumin 4.4 g/dL 3.8-4. 8 normal Not Available [facility] ([facility]) [address] [place], [address], 04/14/2024 20:06:16 04/08/20 24 04/09/2024 COMP. METAB OLIC PANEL (14) globulin, total 2.9 g/dL 1.5-4. 5 Not Available [facility] ([facility]) [address] [place], [place], [address], 04/14/2024 20:06:16 04/08/20 24 04/09/2024 COMP. METAB OLIC PANEL (14) bilirubin, total 0.7 mg/dL 0.0-1. 2 normal Not Available [facility] ([facility]) [address] [place], [address], 04/14/2024 20:06:16 04/08/20 24 04/09/2024 COMP. METAB OLIC PANEL (14) alkaline phosphatase 77 IU/L 44-121 normal Not Available [facility]) [address] [place], [address], 04/14/2024 20:06:16 04/08/20 24 04/09/2024 COMP. METAB OLIC PANEL (14) AST (SGOT) 20 IU/L 0-40 normal Not Available [facility] ([facility]) [address] [place], [address], 04/14/2024 20:06:16 04/08/20 24 04/09/2024 COMP. METAB OLIC PANEL (14) ALT (SGPT) 10 IU/L 0-44 normal Not Available [facility] ([facility]) [address] [facility], [place], [address], 04/14/2024 20:06:16 04/08/20 24 04/09/2024 IRON AND TIBC iron bind.cap.(TI BC) 279 ug/dL 250-45 0 normal Not Available [facility] ([facility]) [address] [facility] [place], [address], 04/14/2024 20:06:17 04/08/20 24 04/09/2024 IRON AND TIBC UIBC 194 ug/dL 111-34 3 normal Not Available [facility] ([facility]) [address] [facility], [place], [address], 04/14/2024 20:06:17 04/08/20 24 04/09/2024 IRON AND TIBC iron 85 ug/dL 38-169 normal Not Available [facility] ([facility]) [address] [facility], [place], [address], 04/14/2024 20:06:17 04/08/20 24 04/09/2024 IRON AND TIBC iron saturation 30 % 15-55 normal Not Available [facility] ([facility]) [address] [place], [address], 04/14/2024 20:06:17 04/08/20 24 04/09/2024 FOLAT E (FOLI C ACID) , SERUM folate (folic acid), serum 14.5 NG/mL >3.0 normal A serum folat e edmundo ntrat ion of less than 3.1 ng/mL is consi dered to repre sent clini get defic iency . Not Available [facility] ([facility]) [address] [place], [address], 04/14/2024 20:06:17 04/08/20 24 04/09/2024 NT-MI OBNP nt-probnp 1454 pg/mL 0-376 above high normal The follo wing cut-p oints have been sugge sted for the use of proBN P for the diagn ostic evalu ation of heart failu re (HF) in patie nts with acute dyspn ea: Modal ity Age Optim al Cut (year s) Point ----- ----- ----- ----- ----- ----- ----- ----- ----- ----- ---- Diagn osis (rule in HF) <50 450 pg/mL 50 - 75 900 pg/mL >75 1800 pg/mL Exclu kristin (rule out HF) Age indep enden t 300 pg/mL Not Available [facility] ([facility]) [address] [place], [address], 04/14/2024 20:06:18 04/08/2004/08/2024 TSH RFX ON ABNOR MAL TO FREE T4 TSH 4.260 uIU/m L 0.450- 4.500 normal Not Available [facility] ([facility]) [address] [place], [address], 04/14/2024 20:06:18 04/08/2004/14/2024 METHY LMALO GOPI ACID, SERUM methylmaloni c acid, serum 186 nmol/ L 0-378 Not Available [facility] ([facility]) [address] [place], [address], 04/14/2024 20:06:19 04/08/20 24 04/09/2024 CREAT INE KINGONZALO E,TOT AL creatine kinase,total 105 U/L 41-331 normal Not Available [facility] ([facility]) [address] [place], [address], 04/14/2024 20:06:19 04/08/20 24 04/09/2024 VITAM IN B12 vitamin B12 1120 pg/mL 232-12 45 normal Not Available [facility] ([facility]) [address] [place], [address], 04/14/2024 20:06:20 04/08/20 24 04/09/2024 MAGNE SIUM magnesium 2.1 mg/dL 1.6-2. 3 normal Not Available [facility] ([facility]) [address] [place], [address], 04/14/2024 20:06:20 04/08/20 24 04/08/2024 CECELIA TIN ferritin 208 NG/mL 30-400 normal Not Available [facility] ([facility]) [address] [place], [address], 04/14/2024 20:06:21 04/08/20 24 04/08/2024 RETIC ULOCY TE COUNT reticulocyte count 2.8 % 0.6-2. 6 above high normal Not Available [facility] ([facility]) [address] [place], [address], 04/14/2024 20:06:22 04/28/20 24 04/28/2024 PROTH ROMBI N TIME (PT) INR 2.9 0.9-1. 1 above high normal Not Available [address], [address], 04/28/2024 15:15:10 04/28/20 24 04/28/2024 PROTH ROMBI N TIME (PT) prothrombin time 28.3 sec 9.2-11 .4 above high normal Not Available [address], [address], 04/28/2024 15:15:10 07/20/20 24 07/20/2024 PROTH ROMBI N TIME (PT) INR 3.0 0.9-1. 1 above high normal Not Available [address], [address], 07/20/2024 13:44:19 07/20/20 24 07/20/2024 PROTH ROMBI N TIME (PT) prothrombin time 29.5 sec 9.2-11 .4 above high normal Not Available [address], [address], 07/20/2024 13:44:19 08/06/20 24 08/06/2024 PROTH ROMBI N TIME (PT) INR 1.6 0.9-1. 1 above high normal Not Available [address], [address], 08/06/2024 14:41:22 08/06/20 24 08/06/2024 PROTH ROMBI N TIME (PT) prothrombin time 16.6 sec 9.2-11 .4 above high normal Not Available [address], [address], 08/06/2024 14:41:22 08/06/20 24 08/07/2024 LYME DISEA SE SEROL OGY W/REF DECLAN lyme total antibody alin NEGATI VE negati ve Lyme antib odies not detec helen. Refle x testi ng is not indic ated. No labor atory evide nce of infec tion with B. burgd orfer i (Lyme disea se). Negat nelia resul ts may occur in patie nts recen tly infec helen (less than or equal to 14 days) with B. burgd orfer i. If recen t infec tion is suspe cted, repea t testi ng on a new sampl e colle cted in 7 to 14 days is recom malcom d. Not Available [facility] ([facility]) [address] [facility], [place], [address], 08/10/2024 14:19:47 08/06/20 24 08/10/2024 HOMOC YSTEI NE homocysteine 9.0 umol/ L Homoc ystei ne level s in patie nts >60 years incre ase 1-2 umol/ L. Refer ence Range : 5.0 - 15.0 Not Available [facility] [address] [facility] [place], [place], [address], 08/10/2024 14:19:48 08/06/20 24 08/06/2024 SEDIM ENTAT ION RATE- WESTE RGREN sedimentatio n rate-westerg crystal 14 mm/HR 0-30 normal Not Available [facility] ([facility]) [address] [place], [address], 08/10/2024 14:19:49 08/18/19 25 08/19/2024 PROTH ROMBI N TIME (PT) INR 4.7 0.9-1. 2 above high normal Refer ence inter estrella is for non-a ntico agula helen patie nts. Sugge sted INR thera peuti c range for Vitam in K antag onist thera py: Stand eugene Dose (mode rate inten sity thera peuti c range ): 2.0 - 3.0 Highe r inten sity thera peuti c range 2.5 - 3.5 Not Available [facility] ([facility]) [address] [place], [address], 08/19/2024 08:08:02 08/18/19 25 08/19/2024 PROTH ROMBI N TIME (PT) prothrombin time 45.7 sec 9.1-12 .0 above high normal Not Available [facility] ([facility]) [address] [place], [address], 08/19/2024 08:08:02 08/31/19 25 09/01/2024 PROTH ROMBI N TIME (PT) INR 2.7 0.9-1. 2 above high normal Refer ence inter estrella is for non-a ntico agula helen patie nts. Sugge sted INR thera peuti c range for Vitam in K antag onist thera py: Stand eugene Dose (mode rate inten sity thera peuti c range ): 2.0 - 3.0 Highe r inten bro thera peuti c range 2.5 - 3.5 Not Available [facility] ([facility]) [address] [place], [address], 09/01/2024 06:07:20 08/31/19 25 09/01/2024 PROTH ROMBI N TIME (PT) prothrombin time 26.9 sec 9.1-12 .0 above high normal Not Available [facility] ([facility]) [address] [place], [address], 09/01/2024 06:07:20 08/31/19 25 09/01/2024 CBC WITH DIFFE RENTI AL/PL ATELE T WBC 2.3 x10e3 /uL 3.4-10 .8 alert low Not Available [facility] ([facility]) [address] [place], [address], 09/01/2024 08:07:18 08/31/19 25 09/01/2024 CBC WITH DIFFE RENTI AL/PL ATELE T RBC 3.07 x10e6 /uL 4.14-5 .80 below low normal Polyc hroma mohan prese nt Ovalo cytes prese nt. Aniso cytos is prese nt. Not Available [facility] ([facility]) [address] [place], [address], 09/01/2024 08:07:18 08/31/19 25 09/01/2024 CBC WITH DIFFE RENTI AL/PL ATELE T hemoglobin 10.5 g/dL 13.0-1 7.7 below low normal Not Available [facility] ([facility]) [address] [place], [address], 09/01/2024 08:07:18 08/31/19 25 09/01/2024 CBC WITH DIFFE RENTI AL/PL ATELE T hematocrit 31.7 % 37.5-5 1.0 below low normal Not Available [facility] ([facility]) [address] [place], [address], 09/01/2024 08:07:18 08/31/19 25 09/01/2024 CBC WITH DIFFE RENTI AL/PL ATELE T MCV 103 fL 79-97 above high normal Not Available [facility] ([facility] [place]) [address] [facility], [place], [address], 09/01/2024 08:07:18 08/31/19 25 09/01/2024 CBC WITH DIFFE RENTI AL/PL ATELE T MCH 34.2 pg 26.6-3 3.0 above high normal Not Available [facility] ([facility] [place]) [address] [place], [address], 09/01/2024 08:07:18 08/31/19 25 09/01/2024 CBC WITH DIFFE RENTI AL/PL ATELE T MCHC 33.1 g/dL 31.5-3 5.7 normal Not Available [facility] ([facility] [place] [facility]) [address] [place], [address], 09/01/2024 08:07:18 08/31/19 25 09/01/2024 CBC WITH DIFFE RENTI AL/PL ATELE T RDW 16.2 % 11.6-1 5.4 above high normal Not Available [facility] ([facility] [place]) [address] [place], [address], 09/01/2024 08:07:18 08/31/19 25 09/01/2024 CBC WITH DIFFE RENTI AL/PL ATELE T platelets 96 x10e3 /uL 150-45 0 alert low Not Available [facility] ([facility]) [address] [place], [address], 09/01/2024 08:07:18 08/31/19 25 09/01/2024 CBC WITH DIFFE RENTI AL/PL ATELE T neutrophils 46 % not estab. normal Not Available [facility] ([facility]) [address] [place], [address], 09/01/2024 08:07:18 08/31/19 25 09/01/2024 CBC WITH DIFFE RENTI AL/PL ATELE T lymphs 46 % not estab. normal Not Available [facility] ([facility] [place]) [address] [facility], [place], [address], 09/01/2024 08:07:18 08/31/19 25 09/01/2024 CBC WITH DIFFE RENTI AL/PL ATELE T monocytes 8 % not estab. normal Not Available [facility] ([facility] [place]) [address] [facility], [place], [address], 09/01/2024 08:07:18 08/31/19 25 09/01/2024 CBC WITH DIFFE RENTI AL/PL ATELE T eos 0 % not estab. normal Not Available [facility] ([facility] [place]) [address] [facility], [place], [address], 09/01/2024 08:07:18 08/31/19 25 09/01/2024 CBC WITH DIFFE RENTI AL/PL ATELE T basos 0 % not estab. normal Not Available [facility] ([facility] [place] [facility]) [address] [facility], [place], [address], 09/01/2024 08:07:18 08/31/19 25 09/01/2024 CBC WITH DIFFE RENTI AL/PL ATELE T immature cells FLOAT TENDER Not Available [facility] ([facility] [place] [facility]) [address] [facility], [place], [address], 09/01/2024 08:07:18 08/31/19 25 09/01/2024 CBC WITH DIFFE RENTI AL/PL ATELE T neutrophils (absolute) 1.1 x10e3 /uL 1.4-7. 0 below low normal Not Available [facility] ([facility] [place] [facility]) [address] [facility], [place], [address], 09/01/2024 08:07:18 08/31/19 25 09/01/2024 CBC WITH DIFFE RENTI AL/PL ATELE T lymphs (absolute) 1.1 x10e3 /uL 0.7-3. 1 normal Not Available [facility] ([facility] [place] [facility]) [address] [facility], [place], [address], 09/01/2024 08:07:18 08/31/19 25 09/01/2024 CBC WITH DIFFE RENTI AL/PL ATELE T monocytes(ab solute) 0.2 x10e3 /uL 0.1-0. 9 normal Not Available [facility] ([facility]) [address] [place], [address], 09/01/2024 08:07:18 08/31/19 25 09/01/2024 CBC WITH DIFFE RENTI AL/PL ATELE T eos (absolute) 0.0 x10e3 /uL 0.0-0. 4 normal Not Available [facility] ([facility] [place]) [address] [facility], [place], [address], 09/01/2024 08:07:18 08/31/19 25 09/01/2024 CBC WITH DIFFE RENTI AL/PL ATELE T baso (absolute) 0.0 x10e3 /uL 0.0-0. 2 normal Not Available [facility] ([facility]) [address] [facility], [place], [address], 09/01/2024 08:07:18 08/31/19 25 09/01/2024 CBC WITH DIFFE RENTI AL/PL ATELE T immature granulocytes 0 % not estab. Not Available [facility] ([facility]) [address] [place], [address], 09/01/2024 08:07:18 08/31/19 25 09/01/2024 CBC WITH DIFFE RENTI AL/PL ATELE T immature grans (abs) 0.0 x10e3 /uL 0.0-0. 1 Not Available [facility] ([facility]) [address], [place], [address], 09/01/2024 08:07:18 08/31/19 25 09/01/2024 CBC WITH DIFFE RENTI AL/PL ATELE T NRBC FLOAT TENDER Not Available [facility] ([facility]) [address], [place], [address], 09/01/2024 08:07:18 08/31/19 25 09/01/2024 CBC WITH DIFFE RENTI AL/PL ATELE T hematology comments: Note: Verif ied by micro palak vides nAmor Not Available [facility] ([facility]) [address] [facility], [place], [address], 09/01/2024 08:07:18 08/31/19 25 09/01/2024 COMP. METAB OLIC PANEL (14) glucose 137 mg/dL 70-99 above high normal Not Available [facility] ([facility] [place]) [address] [facility], [place], [address], 09/01/2024 08:07:20 08/31/19 25 09/01/2024 COMP. METAB OLIC PANEL (14) BUN 12 mg/dL 8-27 normal Not Available [facility] ([facility]) [address] [facility], [place], [address], 09/01/2024 08:07:20 08/31/19 25 09/01/2024 COMP. METAB OLIC PANEL (14) creatinine 1.03 mg/dL 0.76-1 .27 normal Not Available [facility] ([facility]) [address] [facility], [place], [address], 09/01/2024 08:07:20 08/31/19 25 09/01/2024 COMP. METAB OLIC PANEL (14) eGFR 77 mL/mi n/1.7 3 >59 normal Not Available [facility] ([facility] [place]) [address] [facility], [place], [address], 09/01/2024 08:07:20 08/31/19 25 09/01/2024 COMP. METAB OLIC PANEL (14) BUN/creatini ne ratio 12 10-24 normal Not Available [facility] ([facility] [place] [facility]) [address] [facility], [place], [address], 09/01/2024 08:07:20 08/31/19 25 09/01/2024 COMP. METAB OLIC PANEL (14) sodium 141 mmol/ L 134-14 4 normal Not Available [facility] ([facility] [place] [facility]) [address] [facility], [place], [address], 09/01/2024 08:07:20 08/31/19 25 09/01/2024 COMP. METAB OLIC PANEL (14) potassium 4.3 mmol/ L 3.5-5. 2 normal Not Available [facility] ([facility] [place]) [address] [facility], [place], [address], 09/01/2024 08:07:20 08/31/19 25 09/01/2024 COMP. METAB OLIC PANEL (14) chloride 106 mmol/ L 96-106 normal Not Available [facility] ([facility]) [address] [facility], [place], [address], 09/01/2024 08:07:20 08/31/19 25 09/01/2024 COMP. METAB OLIC PANEL (14) carbon dioxide, total 23 mmol/ L 20-29 normal Not Available [facility] ([facility]) [address] [facility] [place], [address], 09/01/2024 08:07:20 08/31/19 25 09/01/2024 COMP. METAB OLIC PANEL (14) calcium 8.8 mg/dL 8.6-10 .2 normal Not Available [facility] ([facility]) [address] [facility], [place], [address], 09/01/2024 08:07:20 08/31/19 25 09/01/2024 COMP. METAB OLIC PANEL (14) protein, total 7.4 g/dL 6.0-8. 5 normal Not Available [facility] ([facility]) [address] [facility] [place], [address], 09/01/2024 08:07:20 08/31/19 25 09/01/2024 COMP. METAB OLIC PANEL (14) albumin 4.5 g/dL 3.8-4. 8 normal Not Available [facility] ([facility]) [address] [facility] [place], [address], 09/01/2024 08:07:20 08/31/19 25 09/01/2024 COMP. METAB OLIC PANEL (14) globulin, total 2.9 g/dL 1.5-4. 5 Not Available [facility] ([facility]) [address] [facility] [place], [address], 09/01/2024 08:07:20 08/31/19 25 09/01/2024 COMP. METAB OLIC PANEL (14) bilirubin, total 0.7 mg/dL 0.0-1. 2 normal Not Available [facility] ([facility]) [address] [facility] [place], [address], 09/01/2024 08:07:20 08/31/19 25 09/01/2024 COMP. METAB OLIC PANEL (14) alkaline phosphatase 75 IU/L 44-121 normal Not Available [facility] ([facility]) [address] [facility] [place], [address], 09/01/2024 08:07:20 08/31/19 25 09/01/2024 COMP. METAB OLIC PANEL (14) AST (SGOT) 18 IU/L 0-40 normal Not Available [facility] ([facility]) [address] [facility] [place], [address], 09/01/2024 08:07:20 08/31/19 25 09/01/2024 COMP. METAB OLIC PANEL (14) ALT (SGPT) 7 IU/L 0-44 normal Not Available [facility] ([facility]) [address], [place], [address], 09/01/2024 08:07:20 01/20/20 24 01/20/2024 CT, head + brain , w/o contr ast CT Head/B rain W/O Contra st INDICA TION: Reason : R41.3 OTHER AMNESI A RULE OUT MASS CVA; Clinic al Questi on(s): Other: TECHNI QUE: Noncon trast head CT using axial techni que and recons tructe d in axial and bull l planes . Iterat nelia recons tructi on techni ques are used to optimi ze dose and image qualit y. CTDIvo l Head: 49.08 mGy, DLP Head: 793 mGy*cm . COMPAR JUNO: CT head 023.. FINDIN GS: Media Marketing Director view findin gs, lines and tubes: None. BRAIN AND EXTRA- AXIAL SPACES : No parenc hymal hemorr haroon, midlin e shift, or mass effect . Lincoln-w mariama matter differ entiat ion is well preser gurdeep. No CT signs of acute infarc t. Negati ve insula r ribbon sign. Athero sclero tic vascul ar calcif icatio n of the caroti d arteri es but negati ve hyperd ense vessel sign. Mild promin ence of the ventri cles and sulci consis tent with parenc hymal volume loss. Mild low-de nsity white matter change s. No subara chnoid hemorr haroon. No subdur al or epidur al collec tion. CALVAR IUM, SKULL BASE, AND SOFT TISSUE S: No fractu res or suspic ious bony lesion s. The parana gray sinuse s and mastoi d air cells are clear. Visual ized orbits and globes are intact . No acute abnorm ality of the soft tissue s. There is a 2 mm metall ic focus in the right fronta l scalp, unchan ged from prior, with no surrou nding inflam matory change . IMPRES KRISTIN: No acute intrac ranial pathol ogy. WSN: [id number] Orderi ng Physic bere: Tc Ellison Dictat ed By: Shalini Dowd MD Dictat ed Date/T xiomara: 5:33 pm Review ed By: Shalini Dowd MD Signed By: Shalini Dowd MD Signed Date/T xiomara: 5:33 pm Transc ribed By: CSB Transc ribed Date/T xiomara: 5:29 pm Patien t Class: Outpat ient LINDA [facility] (Outpt Imaging) [address] [facility], [place], [address], 01/28/2024 20:16:00 09/04/19 25 07/21/2024 CT, chest , w/o contr ast No observ ation record ed. [facility] (Medical Records) [address] [facility], [place], [address], 09/08/2024 08:47:36 09/08/19 ECG 12-le ad No observ ation record ed. [facility] [address] [facility], [place], [address], 09/08/2024 16:57:20 Result Notes None recorded. Problems Name Problem SNOMED Code Status Onset [...] MA, ANNOTATI ON/ADDEN DUM Tc Mckeon MD [address] [facility] [address], [place] [address], [facility] 6 17:40:10 Hypercho lesterol emia 36624583 Completed 201203/22/2014 RECORDED 05/26/20 13 11:22AM BY ABDIFATAH HILL MA, ANNOTATI ON/ADDEN DUM Tc Mckeon MD [address], [place], [address], [facility] 6 17:40:10 Pain in limb 64247812 Completed 201303/22/2014 IMPRESSI ON: ? ANGINAL EQUIVALE NT VS BURSITIS /ROTATOR CUFF INJURY. GIVEN NEW ECG CHANGES WILL PURSUE CARDIAC EVALUATI ON FIRST. IF RULED OUT AND PAIN PERSISTS WILL SET UP WITH PHYSIATR Y.; RECORDED 10/30/19 14 7:51AM BY SUZANNE MENDOZA MA, ANNOTATI ON/ADDEN DUM Tc Mckeon MD [address], [place], [address], [facility] 6 17:40:10 Immuniza tion refused Completed 201303/22/2014 RECORDED 10/30/19 14 7:51AM BY SUZANNE MENDOZA MA, ANNOTATI ON/ADDEN DUM Tc Mckeon MD [address] [facility] [address], [place], [address], [facility] 6 17:40:10 Influenz a vaccine needed 79942753363 06 Completed 201103/22/2014 RECORDED 06/30/20 12 1:04PM BY SUZANNE MENDOZA MA, OFFICE VISIT Tc Mckeon MD [address], [place], [address], [facility] 6 17:40:10 Body mass index 30+ - obesity 351373878 Completed 02/03/2015 Tc Mckeon MD [address], [place], [address], [facility] 4 07:35:39 Diastoli c dysfunct ion 1247977 Active Tc Mckeon MD [address], [place], [address], [facility] 6 17:40:10 Aortic valve stenosis 71540072 Completed 08/23/2017 moderate d 08/2014 Tc Mckeon MD [address], [place], [address], [facility] 8 13:38:12 Aortic valve regurgit ation 52356283 Completed 08/23/2017 mild Tc Mckeon MD [address], [place], [address], [facility] 8 13:37:50 Tricuspi d valve regurgit ation 339239280 Active mild Tc Mckeon MD [address], [place], [address], [facility] 6 17:40:10 Unexplai josue weight loss 680516138 Completed 08/16/2016 Tc Mckeon MD [address], [place], [address], [facility] 7 09:07:00 Impaired fasting glycemia 743853290 Active Tc Mckeon MD [address], [place], [address], [facility] 6 17:40:10 Heart irregula rly irregula r 141008789 Completed 08/16/2016 Tc Mckeon MD [address], [place], [address], [facility] 7 09:06:18 Atrial fibrilla tion 67883465 Completed 09/15/2019 Tc Mckeon MD [address], [place], [address], [facility] 0 06:21:24 Hypothyr oidism 35757154 Completed 201407/13/2022 Alvarado Bridges PA-C [address], [place], [address], [facility] 2 09:11:45 Anemia 061277645 Active Tc Mckeon MD [address], [place], [address], [facility] 6 17:40:10 Macrocyt ic anemia 97073548 Active Tc Mckeon MD [address], [place], [address], [facility] 6 17:40:10 Lesion of scalp 86205712097 0 Completed 08/16/2016 Tc Mckeon MD [address], [place], [address], [facility] 7 09:07:56 Senile hyperker atosis 611129450 Active Tc Mckeon MD [address], [place], [address], [facility] 8 13:35:41 Large prostate 769393628 Active 2016 Tc Mckeon MD [address], [place], [address], [facility] 7 23:05:22 Benign prostati c hyperpla mohan with outflow obstruct ion 678644684 Active 2016 Tc Mckeon MD [address], [place], [address], [facility] 7 16:56:01 Vitamin D deficien cy 95778791 Active 2017 Tc Mckeon MD [address], [place], [address], [facility] 8 09:33:07 Urinary bladder stone 84701944 Completed 201709/01/2019 Tc Mckeon MD [address], [place], [address], [facility] 0 11:55:33 Multiple renal cysts 137814945 Active 2017 Tc Mckeon MD [address], [place], [address], [facility] 8 09:47:33 Kidney stone 68536012 Active 2017 Tc Mckeon MD [address], [place], [address], [facility] 8 16:46:26 Pernicio us anemia 61636924 Completed 201809/01/2019 Tc Mckeon MD [address], [place], [address], [facility] 0 11:52:32 Pancytop enia 499717143 Active 2018 Tc Mckeon MD [address], [place], [address], [facility] 9 21:47:46 Adult health examinat ion Completed [...] Tc Mckeon MD [address], [place], [address], [facility] 6 17:40:10 Aortic valve disorder 5849647 Completed 201302/20/2018 mod , Mild AI Tc Mckeon MD [address], [place], [address], [facility] 8 13:55:15 Asthma 601595482 Completed 201308/16/2016 Tc Mckeon MD [address], [place], [address], [facility] 7 09:06:15 Visual disturba mee 44491219 Completed 201308/10/2015 IMPRESSI ON: ? AMAROSIS FUGAX, GIVEN COMORBID ITIES WILL SCREEN FOR CAROTID DISEASE. ; RECORDED 12/12/19 14 9:05AM BY SUZANNE MENDOZA MA, OFFICE VISIT Tc Mckeon MD [address], [place], [address], [facility] 6 17:40:10 Coronary atherosc lerosis 857014640 Active 2013 STORY: BUFFUM Tc Mckeon MD [address], [place], [address], [facility] 7 09:07:11 Carotid artery occlusio n 970092145 Completed 201309/01/2019 STORY: 50-69% RIGHT, <49% LEFT; stable 03/2018 Tc cMkeon MD [address], [place], [address], [facility] 0 11:51:55 Essentia l hyperten kristin 70351483 Active 2013 Tc Mckeon MD [address], [place], [address], [facility] 8 13:35:36 Hemorrho ids 60476362 Active 2013 Tc Mckeon MD [address], [place], [address], [facility] 7 09:07:46 Pure hypercho lesterol emia 175201621 Active 2013 Promise Garcia MA null, [facility] 7 13:22:59 Hypercho lesterol emia 92146741 Completed 201202/23/2014 RECORDED 05/26/20 13 11:22AM BY ABDIFATAH HILL MA, EMORYATI ON/ADDEN DUM Tc Mckeon MD [address], [place], [address], [facility] 6 17:40:10 Essentia l hyperten kristin 66362219 Completed 201302/23/2014 RECORDED 10/30/19 14 7:51AM BY SUZANNE MENDOZA MA, ANNOTATI ON/ADDEN DELMA Mckeon MD [address], [place], [address], [facility] 8 13:35:36 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 0210687 Active 2013 STORY: DR UMAIR Mckeon MD [address], [place], [address], [facility] 7 09:05:35 Patient status finding 792938428 Completed 201302/03/2015 RECORDED 12/12/19 14 9:07AM BY SUZANNE MENDOZA MA, OFFICE VISIT Tc Mckeon MD [address], [place], [address], [facility] 6 17:40:10 Patient status finding 598210110 Completed 201302/23/2014 RECORDED 12/12/19 14 9:03AM BY SUZANNE MENDOZA MA, ANNOTATI ON/RANDI DUM Tc Mckeon MD [address], [place], [address], [facility] 6 17:40:10 Obesity 378814442 Completed 201308/16/2016 RECORDED 12/12/19 14 9:05AM BY SUZANNE MENDOZA MA, OFFICE VISIT Tc Mckeon MD [address], [place], [address], [facility] 7 09:06:36 Obstruct nelia sleep apnea syndrome 31081085 Active 2013 STORY: CPAP-11C M Tc Mckeon MD [address], [place], [address], [facility] 7 09:07:54 Pain in limb 60562924 Completed 201302/23/2014 IMPRESSI ON: ? ANGINAL EQUIVALE NT VS BURSITIS /ROTATOR CUFF INJURY. GIVEN NEW ECG CHANGES WILL PURSUE CARDIAC EVALUATI ON FIRST. IF RULED OUT AND PAIN PERSISTS WILL SET UP WITH PHYSIATR Y.; RECORDED 10/30/19 14 7:51AM BY SUZANNE MENDOZA MA, ANNOTATI ON/RANDI Mckeon MD [address], [place], [address], [facility] 6 17:40:10 Immuniza tion refused Completed 201302/23/2014 STORY: FLU; RECORDED 10/30/19 14 7:51AM BY SUZANNE MENDOZA MA, ANNOTATI ON/KRISTAEN DELMA Mckeon MD [address] [facility] [address], [place], [address], [facility] 6 17:40:10 Influenz a vaccine needed 31482198761 06 Completed 201102/23/2014 RECORDED 06/30/20 12 1:04PM BY SUZANNE MENDOZA MA, OFFICE VISIT Tc Mckeon MD [address], [place], [address], [facility] 6 17:40:10 Chronic atrial fibrilla tion 284332059 Active 2019 Tc Mckeon MD [address], [place], [address], [facility] 0 06:20:16 Administ ration of prophyla ctic antibiot ic for subacute bacteria l endocard itis Active 2019 Tc Mckeon MD [address], [place], [address], [facility] 0 23:16:12 History of SARS-CoV -2 [id number] 6149494 Active 2021 Tc Mckeon MD [address], [place], [address], [facility] 2 09:10:37 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 122899924 Active 2021 cT Mckeon MD [address], [place], [address], [facility] 2 15:19:01 Subclini get hypothyr oidism 00438690 Active 2021 Alvarado Bridges PA-C [address], [place], [address], [facility] 2 09:11:19 Neck pain 47684925 Active 2021 Alvarado Bridges PA-C [address], [place], [address], [facility] 2 17:45:11 Traumati c hematoma 726082997 Completed 202205/12/2024 Tc Mckeon MD [address], [place], [address], [facility] 4 16:11:07 Ventricu lar prematur e complex 982729153 Active 2022 Tc Mckeon MD [address], [place], [address], [facility] 3 21:30:57 Prediabe ayala 941297354 Active 2022 Tc Mckeon MD [address] [facility] [address], [place], [address], [facility] 3 12:35:31 Intersti tial lung disease 530844923 Active 2022 Tc Mckeon MD [address] [facility] [address], [place], [address], [facility] 3 14:16:21 Bilatera l hearing loss 76186159 Active 2023 Tc Mckeon MD [address] [facility] [address], [place], [address], [facility] 4 10:56:40 Antibiot ic prophyla xis indicate d 578265884 Active 2023 Tc Mckeon MD [address] [address], [place], [address], [facility] 4 07:35:33 Dyspnea on exertion 30089493 Active 2023 Tc Mckeon MD [address] [facility] [address], [place], [address], [facility] 4 07:35:36 Body mass index 30+ - obesity 507787466 Active 2023 Tc Mckeon MD [address] [facility] [address], [place], [address], [facility] 4 07:35:39 Memory impairme nt 885326139 Active 2023 Tc Mckeon MD [address] [facility] [address], [place], [address], [facility] 4 12:10:27 Myelodys plastic syndrome (clinica l) 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 Procedures Surgical History Date Name Laterality Status Provider Name and Address Organization Details Recorded Time 024 bone marrow sampling completed Tc Mckeon MD [address] [address], [place], [address], [facility] 06/03/2024 08:18:16 024 stress echocardiography completed Tc Mckeon MD [address] [address], [place], [address], [facility] 09/09/2024 22:47:02 023 stress echocardiography completed Tc Mckeon MD [address] [address], [place], [address], [facility] 01/09/2023 11:12:46 022 stress echocardiography completed Tc Mckeon MD [address] [address], [place], [address], [facility] 11/09/2021 21:31:45 021 Removal of ureter stone completed Tc Mckeon MD [address], [address], [facility] 11/09/2020 16:21:47 021 Six-Item Cognitive Test completed Suzanne Mendoza MA [facility] 10/06/2020 13:33:12 021 cystoscopy completed Liliana Hanna [facility] 09/20/2020 13:53:57 020 Echo transthoracic completed Tc Mckeon MD [address] [place], [address], [facility] 10/05/2020 20:26:10 020 Mini-Cog Test completed Suzanne Mendoza MA [facility] 09/01/2019 11:31:04 019 procedure on bone marrow completed Leandra Staley [facility] 09/15/2019 11:06:09 019 Mini-Cog Test completed Suzanne Mendoza MA [facility] 08/29/2018 13:10:51 019 Advanced Care Planning completed Tc Mckeon MD [address] [address], [place], [address], [facility] 08/29/2018 13:46:25 018 Fall Risk Assessment completed Christina Ellison [facility] 08/23/2017 13:07:06 018 Mini-Cog Test completed Mary julian MA [facility] 08/23/2017 13:12:47 017 Cardiac Surgery completed Liliana Hanna [facility] 08/08/2017 10:36:45 017 Replacement of aortic valve completed Liliana Hanna [facility] 08/08/2017 10:30:59 017 Colonoscopy completed Tc Mckeon MD [address] [facility] [address] [facility], [place], [address], [facility] 10/07/2016 21:45:19 000 Coronary Artery Bypass completed Suzanne Mendoza MA [facility] 10/10/2021 08:37:31 999 CABG completed Tc Mckeon MD [address] [facility] [address] [facility], [place], [address], [facility] 08/23/2017 13:44:02 Imaging Results Imaging Date Name Status LastModified by Organiz ation Details LastModified Time 01/20/2024 CT, head + brain, w/o contrast completed [facility] (Outpt Imaging) [address], [place], [address], 01/28/2024 20:16:00 07/21/2024 CT, chest, w/o contrast completed [facility] (Medical Records) [address], [place], [address], 09/08/2024 08:47:36 09/08/2024 ECG 12-lead completed [facility] [address], [place], [address], 09/08/2024 16:57:20 Procedure Notes None recorded. Medical Equipment None [...] Not Available Not Available No t Available ciproflox acin 0.3 % eye drops INSTILL 3 DROP IN EACH EYE THREE TIMES DAILY X 5 DAYS active Not Available Not Available No [...] Not Available Not Available No t Available carbidopa 10 mg-levodo pa 100 mg tablet TAKE 1 TABLET BY MOUTH THREE TIMES DAILY active Not Available Not Available No t Available metoprolo l tartrate 50 mg tablet Take [...] e 50 mcg/actua tion nasal spray,arcenio pension [place] 1 spray every day by intranas al [...] Not Available Not Available No t Available rosuvasta tin 40 mg tablet 1 po qd 2023 active Not Available Not Available Not Avai lable escitalop marc 5 mg tablet TAKE 1 TABLET BY MOUTH EVERY DAY active Not Available Not Available No t Available metoprolo l tartrate 25 mg tablet Take [...] Available Not Available Not Available Fluzone High-Dose 2018- (PF) 180 mcg/0.5 mL intramusc ular syringe [...] Details Last Updated DateTime 4 165.1 cm 31.7 kg/m2 01555.9 5 g 55 /min 96 % 96 % 98.4 [degF] 109 mm[Hg] 68 mm[Hg] [facility] 4 13:55:03 Date Recorded Body height Body mass index (BMI) Body weight Heart rate Oxygen saturation Oxygen saturation in Arterial blood by Pulse oximetry Body temperature Systolic blood pressure Diastolic blood pressure Provider Name and Address Organization Details Last Updated DateTime 4 165.1 cm 31.6 kg/m2 27170.5 5 g 89 /min 97 % 97 % 98 [degF] 137 mm[Hg] 68 mm[Hg] [facility] 4 09:51:16 Date Recorded Body height Body mass index (BMI) Body weight Heart rate Oxygen saturation Oxygen saturation in Arterial blood by Pulse oximetry Body temperature Systolic blood pressure Diastolic blood pressure Provider Name and Address Organization Details Last Updated DateTime 4 165.1 cm 32 kg/m2 71303.1 4 g 77 /min 98 % 98 % 98.1 [degF] 132 mm[Hg] 81 mm[Hg] Katy Simmons MA [facility] 4 15:58:56 Date Recorded Body height Body mass index (BMI) Body weight Oxygen saturation Oxygen saturation in Arterial blood by Pulse oximetry Heart rate Body temperature Systolic blood pressure Diastolic blood pressure Provider Name and Address Organization Details Last Updated DateTime 4 165.1 cm 33.8 kg/m2 98705.6 5 g 99 % 99 % 64 /min 98.1 [degF] 128 mm[Hg] 81 mm[Hg] Michelle Lora MA [facility] 4 09:24:30 Social History Question Answer Notes LastModified by Organizat ion Details LastModified Time Tobacco Smoking Status Never Smoker Not Available [employer] 06/14/2020 03:36:41 Do You Have An Advance Directive? Yes HCP/ -Priti Information not available 05/24/2022 What Is Your Level Of Alcohol Consumption? Occasional [id number] Information not available 06/14/2020 Is Blood Transfusion Acceptable In An Emergency? Yes [id number] Information not available 06/14/2020 What Is Your Level Of Caffeine Consumption? Moderate Coffee 1 -1/2 Daily Information not available 11/11/2023 How Much Tobacco Do You Chew? None [id number] Information not available 06/14/2020 In The 14 [...] available 05/24/2022 Are You Currently Employed? Yes [id number] Information not available 06/14/2020 What Type Of Diet Are You Following? REGULAR [id number] Information not available 06/14/2020 Which Illicit Or Recreational Drugs Have You Used? None [id number] Information not available 06/14/2020 Do You Or Have You Ever Used E-cigarettes Or Vape? Never Used Electronic Cigarettes Information not available 05/24/2022 What Is Your Occupation? [employer] [id number] Information not available 06/14/2020 Live Alone Or With Others? With Others 11/11/23 And 1 [employer] Information not available 11/11/2023 Do You Take Precautions To Prevent Distracted Driving? Yes [email or web address] Information not available 08/10/2015 How Often Do [...] Do You Use Protection During Sex? No [id number] Information not available 06/14/2020 Do You Use Your Seat Belt Or Car Seat Routinely? Yes Information not available 10/10/2021 Seat Belts Used Routinely Yes Information not available 05/24/2022 Are You Sexually Active? Yes [id number] Information not available 06/14/2020 Smoke Alarm In Home Yes Information not available 05/24/2022 Do You Have Smoke And Carbon Monoxide Detectors In Your Home? Yes Information not available 10/10/2021 At What Age Did You Start Smoking Tobacco? 2 [id number] Information not available 06/14/2020 Are You Passively Exposed To Smoke? No Information not available 08/16/2016 Do You Or Have You Ever Used Smokeless Tobacco? Never Used Smokeless Tobacco [id number] Information not available 06/14/2020 How Much Tobacco Do You Smoke? No [id number] Information not available 06/14/2020 Do You Use Any Illicit Or Recreational Drugs? No Information not available 05/24/2022 Do You Use Sunscreen Routinely? No [id number] Information not available 06/14/2020 How Many Years Have You Smoked Tobacco? 0 [id number] Information not available 06/14/2020 Do You Or Have You Ever Used Any Other Forms Of Tobacco Or Nicotine? No Information not available 05/24/2022 Sex: Unknown Functional Status Question Answer Note LastModified by Organizat ion Details LastModified Time Are you able to walk? YESWOREST Information not available 05/24/2022 Are you able to care for yourself? Yes [id number] Information not available 06/14/2020 What is your [...] available 2021 13:25:17 Sister Cataract Not available 1 13:25:17 Medical History Condition Response Coronary Artery Disease N Gout N Other N Blood Diseases N Kidney Stones Y Hyperthyroidism N Breast Cancer N mrsa exposure N Lung Disease N Hypothyroidism N Depression N COPD N Defects or Inherited Disease N Developmental or Behavioral Disorders N Breast Problem N Anesthesia Complications N Headaches/Migraines N Varicose Veins N Anxiety Disorder N Muscle, Joint, or Bone Problems N Obesity N Vision or Eye Problems N Arthritis N Head Injury/Concussion N Infertility N Polyps N Mental Disorder N Congenital Anomalies N Acid Reflux (GERD) N Cancer N Stroke N ADHD N Endometriosis N High Cholesterol Y Liver Disease N Headaches N Fibromyalgia N Kidney Disease N Heart Problems Y Ear or Hearing Problems Y Hospitalizations N Thyroid Problems N GI Problems N Developmental Delay N Acne N Eating Disorder N Skin Problems N Anemia Y Constipation N Bladder Problems N Mental Illness N Diabetes N Ovarian Cancer N Bedwetting N Blood Transfusions N Heart Problems/Murmur N Seizures/Epilepsy N Tuberculosis N AIDS/HIV N Congestive Heart Failure (CHF) N Eczema N Abuse/Domestic Violence N Diverticulitis N Asthma N Allergies N Reflux/GERD N Hepatitis N Heart Disease Y Pulmonary Embolism N Hypertension Y Chicken Pox N Autism Spectrum Disorder (ASD) N Osteoporosis N Immunizations Vaccine Type Date Status Note Provider Nam e and Address Organization Details Recorded Time influenza, unspecified formulation 7 completed Not Available [facility] 05/06/2023 12:45:55 Pneumococcal conjugate PCV 13 7 completed DA Robertson [facility] 11/07/2021 10:33:31 Influenza, high-dose, trivalent, PF 8 completed DA Robertson [facility] 11/07/2021 10:33:31 Influenza, high-dose, trivalent, PF 9 completed DA Robertson [facility] 11/07/2021 10:33:30 zoster recombinant 0 completed DA Robertson [facility] 11/07/2021 10:33:30 Influenza, split virus, quadrivalent, preservative 0 completed DA Robertson [facility] 10/06/2020 13:23:40 zoster recombinant 0 completed DA Robertson [facility] 11/07/2021 10:33:30 COVID-19, mRNA, LNP-S, PF, 30 mcg/0.3 mL dose 1 completed DA Robertson [facility] 11/07/2021 10:33:30 COVID-19, mRNA, LNP-S, PF, 30 mcg/0.3 mL dose 1 completed DA Robertson [facility] 11/07/2021 10:33:31 Influenza, split virus, quadrivalent, preservative 1 completed DA Robertson [facility] 11/07/2021 10:33:30 Influenza, high-dose, quadrivalent, PF 1 completed DA Robertson [facility] 11/07/2021 10:33:30 Influenza, adjuvanted, trivalent, PF 7 completed DA Robertson [facility] 11/07/2021 10:33:31 pneumococcal polysaccharide PPV23 9 completed DA Javed [facility] 05/10/2022 14:43:17 Td (adult), 2 Lf tetanus toxoid, preservative free, adsorbed 0 completed DA Javed [facility] 05/10/2022 14:43:17 Influenza, high-dose, quadrivalent, PF 2 completed DA Javed [facility] 05/24/2022 13:37:42 Tdap 0 completed Not Available [facility] 02/[facility]2014 13:49:19 Influenza, high-dose, quadrivalent, PF 3 completed Tc Mckeon MD [address] [facility] [address], [place], [address], [facility] 05/06/2023 13:46:44 Influenza, high-dose, trivalent, PF 4 completed Tc Mckeon MD [address] [facility] [address], [place], [address], [facility] 05/27/2024 22:05:05 Past Encounters Encounter ID Performer Location Encounter Start Date Encounter Closed Date Diagnosis/Indication Diagnosis SNOMED-CT Code Diagnosis ICD10 Code Diagnosis Note [id number] autoEComm erce [address] [facility] [place] [address] 06/30/2012 00:00:00 [id number] autoEComm erce [address] [facility] [facility] [place] [address] 10/29/2012 00:00:00 [id number] autoEComm erce [address] [facility] [facility] [place] [address] 05/01/2013 00:00:00 [id number] autoEComm erce [address] [facility] [place] [address] 06/24/2013 00:00:00 [id number] autoEComm erce [address] [facility] [facility] [place] [address] 10/29/2013 00:00:00 [id number] autoEComm erce [address] [facility] [place] [address] 12/11/2013 00:00:00 [id number] Main Office [address] [facility] [address] [place] [address] 08/04/2014 12:49:48 08/04/2014 13:59:29 Adult health examination 371828637 Immunizati on status utd, flu declined. Regular dental and ophtho care advised as well as seatbelt and sunscreen use. Colon cancer screening utd, CANDACE deferred secondary to low risk status. Advance directives discussed and in place. Body mass index 30+ - obesity 882875704 Coronary atherosclerosis 967265425 Asymptomat ic with good risk factor control. Continue current regimen. Followed by cards. Essential hypertension 98206486 Pure hypercholesterolemia 312525959 Aortic valve disorder 3464082 Clinically stable, pt asymptomat ic. Having ECHO done by Dr Block, upcoming. [id number] Tc Mckeon MD Main Office [address] [facility] [address] [facility] [place] [address] 02/03/2015 08:10:40 02/03/2015 08:57:23 Coronary atherosclerosis 682942207 Asymptomat ic with good risk factor control. Continue current regimen. Followed by cards. Essential hypertension 63915666 Unexplaine d weight loss 514923925 Will start with labs and if normal follow trend. Pure hypercholesterolemia 501152073 [id number] Tc Mckeon MD Main Office [address] [facility] [address] [place] [address] 06/03/2015 11:10:54 06/03/2015 12:32:59 Old myocardial infarction 7155919 I25.2 Coronary atherosclerosis 864726952 I25.10 Asymptomat ic with good risk factor control. Continue current regimen. Followed by cards. Essential hypertension 07883565 I10 Fair control today despite not having meds. Will reassess next week following after resuming daily meds. Heart irre gularly irregular 191975697 I49.9 Impaired f asting glycemia 584084181 R73.01 Needs reassessme nt. Atrial fibrillation 4943 6004 I48.91 New onset with borderline CHADS score of 2. Pt did not take his diltiazem today, and rate fairly well controlled despite that. Will start warfarin, check baseline labs and arrange for cardiology f/u jackie. Pathophysi ology and associated risks with AF as well as it's treatment discussed at length. Pt advised to call with any bleeding or other issues after starting medication . Will have INR checked in 3 days nad dosing adjusted by stafff here. [id number] Tc Mckeon MD Main Office [address] [facility] [address] [place] [place] [address] 06/10/2015 12:48:28 06/10/2015 13:29:01 Atrial fibrillation 65231166 I48.91 Rate well controlled . CHADS score ~2 so will continue warfarin and titrate dosing to goal INR 2-3. Has appt with Dr Block on 06/20. Anemia 177172270 D64.9 Mild on WBC from last week and WBC count slightly low. Will recheck and evaluate further if worse. Hypothyroidism 26432104 E03.9 Will reassess and if stable follow for now given mild elevation. [id number] Tc Mckeon MD Main Office [address] [facility] [address] [place] [address] 08/10/2015 11:13:00 08/10/2015 12:15:44 Adult health examination 416519249 Z00.00 Immunizati on status utd, flu declined, Zostavax advised via local pharmacy. Regular dental and ophtho care advised as well as seatbelt and sunscreen use. Colon cancer screening utd, CANDACE deferred secondary to low risk status. Advance directives discussed and in place. Body mass index 30+ - obesity 268259577 Z68.35 Coronary atherosclerosis 302653175 I25.10 Asymptomat ic with good risk factor control. Continue current regimen. Followed by cards. Essential hypertension 08923486 I10 Pure hypercholesterolemia 461033981 E78.0 Aortic valve disorder 87 12622 I35.9 Clinically and echocardio graphicall y stable, pt asymptomat ic. Anemia 118412103 D64.9 Due for f/u labs. [id number] Wilbert lott Main Office [address] [facility] [address] [place] [address] 10/04/2015 10:23:59 10/04/2015 11:02:58 Lesion of scalp 0918220733 00 L98.9 Abnormal scalp lesion. Pt. is advised to see dermatolog ist for biopsy of the lesion. [id number] Tc Mckeon MD Main Office [address] [facility] [address] [place] [address] 02/09/2016 08:15:02 02/09/2016 09:06:04 Anemia 868319269 D64.9 Due for f/u labs. Atrial fibrillation 4943 6004 I48.91 Rate well controlled . CHADS score ~2 so will continue warfarin and titrate dosing to goal INR 2-3. Coronary atherosclerosis 424420268 I25.10 Asymptomat ic with good risk factor control. Continue current regimen. Followed by cards. Essential hypertension 10101948 I10 Pure hypercholesterolemia 900389361 E78.0 Hypothyroidism 21601000 E03.9 Will reassess and if stable follow for now given mild elevation. Carotid ar natalie occlusion 574057213 I65.29 [id number] Tc Mkceon MD Main Office [address] [facility] [address] [place] [address] 08/16/2016 08:36:53 08/16/2016 09:41:37 Adult health examination 120316678 Z00.01 Immunizati on status utd, flu declined, Zostavax advised via local pharmacy. Regular dental and ophtho care advised as well as seat belt and sunscreen use. Colon cancer screening due, CANDACE deferred secondary to low risk status. Advance directives discussed and in place. Atrial fibrillation 4943 6004 I48.91 Rate well controlled . CHADS score ~2 so will continue warfarin and titrate dosing to goal INR 2-3. Body mass index 30+ - obesity 994273634 Z68.30 Pure hypercholesterolemia 355061161 E78.01 Anemia 370534457 D64.9 Due for f/u labs lon while on anticoagul ation. Impaired f asting glycemia 878894970 R73.01 Needs reassessme nt. Coronary atherosclerosis 697316344 I25.10 Asymptomat ic with good risk factor control. Continue current regimen. Followed by cards. Essential hypertension 90781741 I10 Screening for malignant neoplasm of colon 153035614 Z12.11 Retention of urine 44659 4002 R33.9 [id number] Wilbert lott Main Office [address] [facility] [address] [place] [address] 01/21/2017 13:13:24 01/21/2017 14:05:29 Coronary atherosclerosis 917756261 I25.10 Epistaxis 95281412 R04.0 [id number] Tc Mckeon MD Main Office [address] [facility] [address] [place] [address] 03/14/2017 12:48:30 03/14/2017 13:25:53 Essential hypertension 15783835 I10 Carotid ar natalie occlusion 293365681 I65.29 Asymptomat ic but due for reassessme nt. Refer to vascular if progressiv e. Coronary atherosclerosis 884155189 I25.10 Asymptomat ic with good risk factor control. Continue current regimen. Followed by cards. Atrial fibrillation 4943 6004 I48.91 Rate well controlled , on anticoagul ation. Will continue current regimen. With recent bleeding will reassess CBC. [id number] cT Mckeon MD Main Office [address] [facility] [address] [place] [address] 08/08/2017 11:42:02 08/08/2017 21:08:29 [id number] Tc Mckeon MD Main Office [address] [facility] [address] [place] [address] 08/14/2017 09:47:20 08/14/2017 11:02:04 Aortic valve stenosis 33504398 I35.0 s/p TAVR - cont f/u c card, cardiac surgeon, card rehab - also has pending repeat echo---tho rough dc summary, pt fully plugged in for f/u Atrial fibrillation 4943 6004 I48.91 INR stable, cont coumadin as dir, will refill higher dose of met. Essential hypertension 62173701 I10 stable, cont meds as dir, last Cr was stable ~ 2 wks [id number] Tc Mckeon MD Main Office [address] [facility] [address] [place] [address] 08/23/2017 12:49:22 08/23/2017 13:59:36 Adult health examination 881658807 Z00.00 Immunizati on status utd, Zostavax advised via local pharmacy. Regular dental and ophtho care advised as well as seat belt and sunscreen use. Colon cancer screening utd. CANDACE deferred secondary to low risk status. Patient currently demonstrat es low risk for falls and no significan t cognitive decline. Advance directives discussed and in place. Essential hypertension 61579515 I10 Pure hypercholesterolemia 929995647 E78.01 LDL at goal continue current regimen. Multiple joint pain 3567 8005 M25.50 Will start with labs and if no answer found but symptoms persist, harley need further evaluation . Anemia 592182236 D64.9 Due for f/u labs lon while on anticoagul ation. Impaired f asting glycemia 702075547 R73.01 Needs reassessme nt. Hypothyroidism 53867038 E03.9 Will reassess and if stable follow for now given mild elevation in the past Atrial fibrillation 4943 6004 I48.91 Rate well controlled , on anticoagul ation. Will continue current regimen. With recent surgery will reassess CBC. Obesity 394785807 E66.9 Body mass index 30+ - obesity 574639754 Z68.34 [id number] Tc Mckeon MD Main Office [address] [facility] [address] [place] [address] 02/20/2018 12:55:51 02/20/2018 14:07:32 Essential hypertension 66390988 I10 Pure hypercholesterolemia 789406137 E78.01 LDL at goal continue current regimen. Dyspnea on exertion 6084 5006 R06.09 ? if related to anemia. Recent cardiology consultati ons suggest stable issues with echo earlier this year showing preserved EF. Will ask pulmonary and heme to help investigat e other etiologies . Kidney stone 88127352 N2 0.0 Following with urology. Atrial fibrillation 4943 6004 I48.91 Rate well controlled , on anticoagul ation. Will continue current regimen. Carotid ar natalie occlusion 453364790 I65.29 Asymptomat ic but due for reassessme nt. Refer to vascular if progressiv e. Impaired f asting glycemia 358343873 R73.01 Needs reassessme nt. [id number] Tc Mckeon MD Main Office [address] [facility] [address] [place] [address] 08/29/2018 12:51:09 08/29/2018 13:59:50 Adult health examination 363466769 Z00.00 Immunizati on status utd, Shingrix advised via local pharmacy. Regular dental and ophtho care advised as well as seat belt and sunscreen use. Colon cancer screening utd. CANDACE deferred secondary to low risk status. Patient currently demonstrat es low risk for falls and no significan t cognitive decline. Advance directives discussed and in place. Varicella vaccination 68 943368 Z23 Administra tion of pneumococcal vaccine 42931458 Z23 Atrial fibrillation 4943 6004 I48.91 Advance di rective discussed with patient 547216892 Z71.89 MOLST form provided/r eviewed with pt and his . HCP utd. Essential hypertension 03919871 I10 Pure hypercholesterolemia 007259860 E78.01 LDL at goal continue current regimen. Anemia 788684501 D64.9 Due for f/u labs lon while on anticoagul ation. Feels better on vitamin B12. Impaired f asting glycemia 568258507 R73.01 Needs reassessme nt. Hypothyroidism 60879148 E03.9 Will reassess and if stable follow for now given mild elevation in the past Obesity 496830898 E66.9 Body mass index 30+ - obesity 780158586 Z68.35 Vitamin D deficiency 347 78759 E55.9 Will reassess on supplement . [id number] Tyrese Roca MD Main Office [address] [place] [address] 01/07/2019 15:18:51 01/07/2019 16:14:51 Cough 75003037 R05 secondary to PND. Does not appear to be infectious . Allergic rhinitis 175370 04 J30.9 [id number] Tc Mckeon MD Main Office [address] [place] [address] 03/03/2019 13:15:04 03/03/2019 14:21:47 Essential hypertension 62036346 I10 Well controlled and regimen tolerated. Will continue current dosing. Carotid ar natalie occlusion 452885544 I65.29 Asymptomat ic and last years doppler showed improved (<50% VINOD stensosis) . Will defer f/u this year. Coronary atherosclerosis 089060586 I25.10 Asymptomat ic with good risk factor control. Continue current regimen. Followed by cards. Pure hypercholesterolemia 109840807 E78.01 LDL at goal not sure that binding resin is indicated. Will d/c and monitor. Pancytopenia 112530893 D 61.818 Hem following. Bone marrow bx being planned. Hypothyroidism 90493056 E03.9 Will reassess and if stable follow for now given mild elevation in the past Impaired f asting glycemia 308322052 R73.01 Needs reassessme nt. [id number] Tc Mckeon MD Main Office [address] [facility] [address] [facility] [place] [address] 09/01/2019 11:08:36 09/01/2019 12:21:00 Adult health examination 006978669 Z00.00 Immunizati on status updated, Shingrix advised via local pharmacy. Regular dental and ophtho care advised as well as seat belt and sunscreen use. Colon cancer screening utd. CANDACE deferred secondary to low risk status. Patient currently demonstrat es low risk for falls and no significan t cognitive decline. Advance directives discussed and in place. Coronary atherosclerosis 242058260 I25.10 Asymptomat ic with good risk factor control. Continue current regimen. Followed by cards. Essential hypertension 34749812 I10 Well controlled and regimen tolerated. Will continue current dosing. Pure hypercholesterolemia 186623404 E78.01 Will resume colestipol with TG bump Requires a tetanus booster 673357320 Z23 Varicella vaccination 68 938420 Z23 Pancytopenia 050003582 D 61.818 bone marrow biopsy done. WIll request. Heme following. Bilateral hearing loss 03307448 H91.93 Hypothyroidism 66739799 E03.9 Will reassess and if stable follow for now given mild elevation in the past Obstructiv e sleep apnea syndrome 99968863 G47.33 Stopped using 1 year ago but suspect that nightime arousals. Megaloblas tic anemia due to vitamin B>12< deficiency 57980378 D53.1 Reassess and update diagnosis if resolved. Impaired f asting glycemia 168656678 R73.01 Needs reassessme nt. Chronic at rial fibrillation 429779804 I48.21 Rate well controlled and on anticoagul ation. Contiue current regimen. Followed by cardiology as well. [id number] Tc Mckeon MD Main Office [address] [facility] [address] [place] [address] 03/01/2020 09:06:46 03/01/2020 10:03:17 Essential hypertension 25526247 I10 Low in context of weight loss. Will reduce diltiazem dose and monitor. Advised to call with any problems. . Chronic at rial fibrillation 616298019 I48.21 Rate well controlled and on anticoagul ation. Continue current regimen. Followed by cardiology as well. Impaired f asting glycemia 734455012 R73.01 Will monitor. Coronary atherosclerosis 605976458 I25.10 Asymptomat ic with good risk factor control. Continue current regimen. Followed by cards. To have echo b/w now and next appt. Pure hypercholesterolemia 851154409 E78.01 Well controlled , continue current regimen. Hypothyroidism 33910377 E03.9 Will reassess and if stable follow for now given mild elevation in the past [id number] Tc Mckeon MD Main Office [address] [place] [address] 10/06/2020 13:07:05 10/06/2020 14:13:08 Adult health examination 545351455 Z00.00 Immunizati on status updated, Shingrix advised via local pharmacy. Regular dental and ophtho care advised as well as seat belt and sunscreen use. Colon cancer screening utd. CANDACE deferred secondary to low risk status. Patient currently demonstrat es low risk for falls and no significan t cognitive decline. Advance directives discussed and in place. Essential hypertension 43619938 I10 Well controlled continue current regimen. Chronic at rial fibrillation 735368135 I48.21 Rate well controlled and on anticoagul ation. Continue current regimen. Followed by cardiology as well. Pure hypercholesterolemia 678448257 E78.01 Well controlled , continue current regimen. Coronary atherosclerosis 430891127 I25.10 Asymptomat ic with good risk factor control. Continue current regimen. Followed by cards. Pancytopenia 655349674 D 61.818 bone marrow biopsy done. WIll request. Heme following. Hypothyroidism 96517148 E03.9 Will reassess and if stable follow for now given mild elevation in the past Obstructiv e sleep apnea syndrome 47203473 G47.33 Stopped using 1 year ago but suspect that nightime arousals. Megaloblas tic anemia due to vitamin B>12< deficiency 91621243 D53.1 Reassess and update diagnosis if resolved. Impaired f asting glycemia 120827164 R73.01 Needs reassessme nt. Nocturia 290983728 R35.1 [id number] Maddie Obrien Main Office [address] [place] [address] 11/09/2020 12:38:31 11/09/2020 14:45:25 [id number] Maddie Obrien Main Office [address] [place] [address] 11/10/2020 10:20:26 11/10/2020 11:14:37 Blood in urine 69094658 R31.9 Secondary to stones and recent procedures . Given multiple recent bladder instrument ations will screen for infection. Acute kidney injury 1466 9001 N17.9 Post obstructiv e from blood clots. Will verify stability. Macrocytic anemia 820189 05 D53.9 Chronic, but will verify stability with hematuria. Benign pro static hyperplasia with outflow obstruction 961957569 N40.1 Continue tamsulosin Chronic at rial fibrillation 489334410 I48.21 Resumed warfarin today. Will have INR checked tomorrow. Rate and BP are well controlled . [id number] Tc Mckeon MD Main Office [address] [facility] [address] [place] [address] 04/11/2021 08:50:51 04/11/2021 09:35:16 Essential hypertension 72135069 I10 Well controlled continue current regimen. Chronic at rial fibrillation 394512328 I48.21 Resumed warfarin today. Will have INR checked tomorrow. Rate and BP are well controlled . Pure hypercholesterolemia 719140685 E78.01 Well controlled , continue current regimen. Large prostate 146827487 N40.0 Anemia 900011488 D64.9 Due for f/u labs lon while on anticoagul ation. Feels better on vitamin B12. [id number] Tc Mckeon MD Main Office [address] [facility] [address] [place] [address] 10/10/2021 08:36:06 10/10/2021 09:23:28 Adult health examination 517416846 Z00.00 Immunizati on status updated, Shingrix advised via local pharmacy. Regular dental and ophtho care advised as well as seat belt and sunscreen use. Colon cancer screening utd. CANDACE deferred secondary to low risk status. Patient currently demonstrat es low risk for falls and no significan t cognitive decline. Advance directives discussed and in place. Essential hypertension 59157659 I10 Well controlled continue current regimen. Hypothyroidism 03984160 E03.9 Will reassess and if stable follow for now given mild elevation in the past Pure hypercholesterolemia 639263763 E78.01 Well controlled , continue current regimen. Chronic at rial fibrillation 328255904 I48.21 Rate well controlled and on anticoagul ation. Continue current regimen. Followed by cardiology as well. Coronary atherosclerosis 873241137 I25.10 Asymptomat ic with good risk factor control. Continue current regimen. Followed by cards. Pancytopenia 969263645 D 61.818 Persistent /slightly worse based on recent labs. Dr. Longoria following with plan for another BM biopsy if counts worsen. Impaired f asting glycemia 483163950 R73.01 Needs reassessme nt. Nocturia 724601914 R35.1 PSA normal in 10/03/21 Neck pain 60777737 M54.2 suspect cervical arthritis/ muscle strain but if persistent /worse or if xr abnl will need further assessment . Lightheadedness 87127032 8 R42 Will d/w Dr. Block next week. Consider angiograph y if this and neck symptoms persist. Vitamin D deficiency 347 57153 E55.9 Will reassess on supplement . [id number] Tc Mckeon MD Main Office [address] [facility] [address] [place] [address] 04/10/2022 10:03:17 04/10/2022 10:52:55 Essential hypertension 43779586 I10 Well controlled continue current regimen. Coronary atherosclerosis 649778437 I25.10 Asymptomat ic with good risk factor control. Continue current regimen. Followed by cards. Chronic at rial fibrillation 438370859 I48.21 Pancytopenia 203357429 D 61.818 Persistent /slightly worse based on recent labs. Dr. Longoria following with plan for another BM biopsy if counts worsen. Dyspnea on exertion 6084 5006 R06.09 ? if related to anemia. Recent cardiology consultati ons suggest stable issues with stress echo earlier this year showing preserved EF. Will evaluate/t reat further depending on testing results. Will ask pulmonary and/or heme to help investigat e other etiologies . Depending on test results. Unintentio nal weight loss 518624742 R63.4 Has risk factors for gastritis/ GERD. Will see if PPI trial helps with appetite. [id number] Alvarado Bridges PA-C Main Office [address] [facility] [address] [place] [address] 05/10/2022 14:36:31 05/10/2022 16:08:54 Anemia 820188474 D64.9 Continue to follow up with heme/onc and takes b12 injections once a month Dyspnea 181624934 R06.00 Cardiology believes dyspnea is due to a pulmonary cause-- they ordered PFTs and will f/u in 6 months. Hx of a-fib and post TAVR BNP elevated at 1824 which has increased from 1762 in 2018. Cardiology notes that he was euvolemic on exam and was not starting diuretics at that time. Obstructiv e sleep apnea syndrome 91377311 G47.33 not wearing CPAP due to mouth dryness -- likely related to fatigue, ? related to sob as well - encouraged pt to wear cpap Chronic at rial fibrillation 822759143 I48.21 F/u with cardiology in 6 months. Continue meds as prescribed . we manage inr here Pancytopenia 315240351 D 61.818 Continue to follow up with heme/onc - reviewed recent note Unintentio nal weight loss 120826757 R63.4 has gained 7 lbs over past month -- wonder if fluid related, even though appears euvolemic -- see below - trial c diuretic Diastolic dysfunction 35 53293 I51.9 on echo 8.20 - avoid salt Influenza vaccine needed 9381233684 106 Z23 Essential hypertension 58073141 I10 stable, cont meds as dir trial c low dose lasix 20mg qd --- check bmp ac next ov in 2 wks if bp low / symptomati c - dizzy - - - then rec cut amlodipine 5mg in 1/2 = 2.5mg qd will fwd copy of this ov note to card [id number] Alvarado Bridges PA-C Main Office [address] [place] [address] 05/24/2022 13:24:53 05/24/2022 14:28:53 Essential hypertension 00747852 I10 Lower BP in office today. Still experienci ng occ dizziness, likely mild orthostasi s. Stable on lasix with 3 lb weight loss. Continue 20mg furosemide . . Recheck labs. Continue f/u with cardiology . -- will Cut amlodipine 5mg in 1/2 = 2.5mg qd will fwd copy of this ov note to card Coronary atherosclerosis 329881368 I25.10 Stable and has not used nitro. Rx . Obstructiv e sleep apnea syndrome 62236081 G47.33 Still not tolerating wearing CPAP due to mouth dryness -- likely related to fatigue and sob as well - Has not seen sleep medicine in > 10 years - will get updated sleep eval ---- this may likely be the cause of his elevated probnp Dyspnea on exertion 6084 5006 R06.09 pt had nl pft's - not pulmonary cause --- better lately on lasix, cont as dir -- will recheck probnp, see above Gastroesop hageal reflux disease 602428636 K21.9 Diastolic dysfunction 35 61027 I51.9 on echo 8.20 - avoid salt - see above [id number] Alvarado Bridges PA-C Main Office [address] [facility] [address] [facility] [place] [address] 07/26/2022 08:36:47 07/26/2022 09:43:10 Essential hypertension 91852334 I10 bp stable - cont meds as dirappears euvolemic -- likely wt gain d/t increased calorie intake and less exercise in colder weather will fwd copy of this ov note to card Pure hypercholesterolemia 048328419 E78.00 Obstructiv e sleep apnea syndrome 43510509 G47.33 feeling better / sleeping better on cpap - cont f/u c sleep med - may need updated sleep study to get replacemen t parts probnp trending down - most likely d/t compliance c cpap - see below Diastolic dysfunction 35 17839 I51.9 on echo 8.20 - avoid salt - see above Prediabetes 899748280 R7 3.03 a1c stable at 6.0 Subclinica l hypothyroidism 75934241 E02 TSH ~ stable for many years Dyspnea on exertion 6084 5006 R06.09 Neck pain 23302416 M54.2 cont prn tyl, trial moist heat/massa ge/hep had xray 3.22 - reviewed - advanced djd - will get pssp eval [id number] Tc Mckeon MD Main Office [address] [place] [address] 11/06/2022 09:33:59 11/06/2022 10:47:48 Adult health examination 149388558 Z00.00 Immunizati on status updated, Shingrix advised via local pharmacy. Regular dental and ophtho care advised as well as seat belt and sunscreen use. Colon cancer screening utd. Prostate cancer screening utd via urology. Patient currently demonstrat es low risk for falls and no significan t cognitive decline. Advance directives discussed and in place. Coronary atherosclerosis 245217574 I25.10 Not sure that this is the primary etiology of his CHISHOLM. Good risk factor control. Continue current regimen. Followed by cards. Pancytopenia 334821287 D 61.818 Persistent at stable based on recent labs. Dr. Longoria following with plan for another BM biopsy if counts worsen. Has f/u 01/08. Chronic at rial fibrillation 743293376 I48.21 Certainly a contributo r to CHF and possibly dyspnea. Antibiotic prophylaxis indicated 903944809 Z78.9 Dyspnea on exertion 6084 5006 R06.09 Possibly secondary to lung disease vs cardiac vs anemia. Recent cardiology consultati ons suggest stable issues with stress echo last year showing preserved EF. Will see if increase furosemide dosing helsp. Will evaluate/t reat further depending on testing results. Will ask pulmonary and/or heme to help investigat e other etiologies . Radiologic infiltrate of lung 415682963 R91.8 Given persistent XR findings and worsening dyspnea further imaging warranted. Body mass index 30+ - obesity 020425212 E66.9 Z68.33 Essential hypertension 34758063 I10 Well controlled continue current regimen. Impaired f asting glycemia 028270235 R73.01 Needs reassessme nt. [id number] Tyrese Roca MD [facility] [address] [facility] [address] [facility] [place] [address] 11/22/2022 13:44:18 11/22/2022 14:29:34 Localized swelling of left lower leg 1819076545 9838424 R22.42 Symptoms of a DVT given calf swelling and tenderness but less likely given known injury and the fact that he is on coumadin for heart issues. Cellulitis of left lower limb 4550202092 6357076 L03.116 Secondary to trauma. [id number] Ce Dalton Main Office [address] [facility] [address] [place] [address] 11/27/2022 08:16:14 11/28/2022 06:06:25 [id number] Tc Mckeon MD Main Office [address] [facility] [address] [place] [address] 12/03/2022 11:09:03 12/03/2022 13:00:56 [id number] Maddie Obrien Main Office [address] [facility] [address] [place] [address] 12/05/2022 09:01:45 12/05/2022 09:46:47 Pancytopenia 950115502 D61.[address] Longoria, has appt end of December Essential hypertension 86466270 I10 Bp controlled on current treatment Cellulitis of left lower limb 1982669354 6469481 L03.116 Was on IV now po antibiotic s, healing well and getting better daily. Call if any changes that are not improvemen t. Traumatic hematoma 13138 9004 T14.8XXD on coumadin, INR check per usual monitoring , he is now on 5 mg daily and will recheck today [id number] Scarlet Hirsch MA Main Office [address] [facility] [address] [place] [address] 12/18/2022 14:48:07 12/18/2022 16:05:07 Dizziness 976733710 R42 new onset dizziness in the setting of cardiac arrhythmia and possible progressiv e aortic stenosis. Labs were just done and stable. INR was 1.7 on 12/05. Pt. is advised to contact his cardiologi st and we will order head CT to r/o TIA/CVA. Pt. was advised to go to the ER if , dizziness worsens, chest pain or palpitatio ns, weakness, severe headache, mental status changes. [id number] cT Mckeon MD Main Office [address] [facility] [address] [place] [address] 02/07/2023 09:57:37 02/07/2023 10:48:00 Chronic atrial fibrillation 576914263 I48.21 Certainly a contributo r to CHF and possibly dyspnea. Anemia 718844412 D64.9 Due for f/u labs lon while on anticoagul ation. Feels better on vitamin B12. Impaired f asting glycemia 675431091 R73.01 Will monitor. Macrocytic anemia 708087 05 D53.9 Chronic, but will monitor stability. Pancytopenia 307772066 D 61.818 Persistent at stable based on recent labs. Dr. Longoria following with plan for another BM biopsy if counts worsen. Subclinica l hypothyroidism 89452542 E02 Will monitor and consider supplement if >10. Seasonal allergy 6363700 04 J30.2 Helping with dizziness, ok to refill rx. [id number] Tc Mckeon MD Main Office [address] [facility] [address] [place] [address] 05/06/2023 12:45:22 05/06/2023 13:44:02 Coronary atherosclerosis 549050466 I25.10 Not sure that this is the primary etiology of his CHISHOLM. Good risk factor control. Continue current regimen. Followed by cards. Impaired f asting glycemia 437810902 R73.01 Will monitor. Had labs done today Antibiotic prophylaxis indicated 060189433 Z78.9 Influenza vaccine needed 1379895177 106 Z23 Senile purpura 13233013 D69.2 Likely aggravated by current steroid therapy and chronic sun damage. [id number] Tc Mckeon MD Main Office [address] [facility] [address] [place] [address] 11/11/2023 10:24:23 11/11/2023 11:07:32 Adult health examination 418207469 Z00.00 COVID booster, PCV, RSV, Shingrix advised via local pharmacy. Regular dental and ophtho care advised as well as seat belt and sunscreen use. Colon cancer screening utd. Prostate cancer screening utd via urology. Patient currently demonstrat es low risk for falls and no significan t cognitive decline. Advance directives discussed and in place. Essential hypertension 32432418 I10 Well controlled continue current regimen. Pure hypercholesterolemia 674377819 E78.01 Well controlled , continue current regimen. Coronary atherosclerosis 252437268 I25.10 Not sure that this is the primary etiology of his CHISHOLM. Good risk factor control. Continue current regimen. Followed by cards. Pancytopenia 257998909 D 61.818 Persistent at stable based on recent labs. Dr. Longoria following with plan for another BM biopsy if counts worsen. Has f/u 01/08. Chronic at rial fibrillation 889417060 I48.21 Certainly a contributo r to CHF and possibly dyspnea. Antibiotic prophylaxis indicated 384665967 Z78.9 Dyspnea on exertion 6084 5006 R06.09 Possibly secondary to lung disease vs cardiac vs anemia. Recent cardiology consultati ons suggest stable issues with stress echo last year showing preserved EF. Will continue following with pulmonary and heme to help investigat e other secondary etiologies . Body mass index 30+ - obesity 296458175 E66.9 Z68.33 Impaired f asting glycemia 724679588 R73.01 Needs reassessme nt. Bilateral hearing loss 42863741 H91.93 Muscle pain 60272502 M79 .10 Vitamin D deficiency 347 97166 E55.9 Will reassess on supplement . Administra tion of viral vaccine 38894462 Z29.11 Administra tion of pneumococcal vaccine 74124354 Z23 [id number] ELENA MUÑIZ Main Office [address] [facility] [address] [facility] [place] [address] 12/02/2023 12:58:33 12/02/2023 13:23:45 Myocardial infarction 35841574 I21.9 hx of [place] (12/2013)-f kp cardiology ; Dr. Block Dyspnea on exertion 6084 5006 R06.09 ekg; atrial fibrillati on with normal mean ventricula r response-h as dyspnea on exertion such as use of stairs or long walks; resolves after resting for 1-2 minutes-wi ll further evaluate with exercise stress test [id number] Tc Mckeon MD Main Office [address] [place] [address] 01/10/2024 10:58:39 01/10/2024 12:12:26 Memory impairment 740322198 R41.3 MMSE score was 29/30. Suspect mild cognitive impairment . Etiology most likely vascular but Alzheimers is possible. Will screen for possible metabolic contributo rs and rule out mass/CVA. Consider memory disorders/ neuropsych referral depending on results. Exposure t o potentially harmful entity 548518151 X58.XXXA At risk for potential heavy metal toxicity based on type of work. Bilateral hearing loss 47379437 H91.93 Again encouraged to pursue hearing eval as this is complicate s the picture. [id number] Tc Mckeon MD Main Office [address] [facility] [address] [facility] [address] 02/18/2024 13:13:22 02/18/2024 14:40:44 Antibiotic prophylaxis indicated 793916393 Z78.9 Needs updated script at pharmacy for his abx prophylaxi s. Laceration of left wrist 2973564823 9578306 S61.512A tetanus UTD, wound clean currently without evidence for infection. Continue daily dressing/w ound care and start cephalexin only if s/s of infection develop. [id number] Alvarado Bridges PA-C Main Office [address] [facility] [address] [facility] [place] [address] 04/08/2024 09:36:54 04/08/2024 10:39:48 Fatigue 71926058 R53.83 multifacto rial - fol by card, pulm and hem/onc for various pathologie s that could contribute to his sxswill update labs c cc: card & hem/oncpen ding f/u c card next week, pulm 1.25, hem/onc 11.24 Anemia due to unknown mechanism 51378787 D64.9 Cobalamin deficiency 190 264077 E53.8 Dyspnea 058699636 R06.00 Cardiology believes dyspnea is due to a pulmonary cause-- they ordered PFTs and will f/u in 6 months. Hx of a-fib and post TAVR BNP elevated at 1824 which has increased from 1762 in 2018. Cardiology notes that he was euvolemic on exam and was not starting diuretics at that time. 8.24 - recheck probnp Muscle pain 42812593 M79 .10 Diastolic dysfunction 35 68671 I51.9 see above, will cc: copy of this ov note to card Chronic at rial fibrillation 203750702 I48.21 see above Interstiti al lung disease 614396156 J84.9 see above, will cc: copy of this ov note to pulm Pancytopenia 693595857 D 61.818 see above, will cc: copy of this ov note to hem/onc [id number] Tc Mckeon MD Main Office [address] [place] [address] 05/12/2024 15:42:53 05/12/2024 16:25:37 Influenza vaccine needed 6591179658 106 Z23 65 YEARS AND OLDER Dyspnea on exertion 6084 5006 R06.09 Multifacto rial and secondary to lung disease vs cardiac vs myelodyspl astic process. Recent cardiology consultati ons suggest stable issues with stress echo last year showing preserved EF. Going to have follow up bone marrow sampling. Essential hypertension 17298989 I10 Well controlled continue current regimen. Pure hypercholesterolemia 719799596 E78.01 Well controlled , continue current regimen. Obstructiv e sleep apnea syndrome 59482086 G47.33 Needs supplies. Reports compliance and tolerance with CPAP. Chronic at rial fibrillation 915358468 I48.21 Certainly a contributo r to elevated BNP/CHF and dyspnea. [id number] Tc Mckeon MD Main Office [address] [facility] [address] [place] [address] 07/30/2024 09:08:25 07/30/2024 10:03:37 Memory impairment 456781837 R41.3 MMSE score was recently 29/30. Suspect mild cognitive impairment . Etiology most likely vascular but Alzheimers and Parkinson' s are also possible contributo rs. Labs unremarkab le. Will refer to neurology to help with evaluation . Given movement d/o will utilize specialist s outside of [facility]. Shuffling gait 48672651 R26.89 Concerns for Parkinson' s, and length of time for neuro referrals. Will try dopamine replacemen t therapy while waiting for Neurology consultati on. Multiple joint pain 3567 8005 M25.50 Will start with labs to screen for infectious /inflammat ory disease given symptoms and risk factors. [id number] Tc Mckeon MD [facility] [address] [facility] [address] [place] [address] 08/28/2024 14:41:41 09/01/2024 14:00:33 Shuffling gait 06212159 R26.89 Concerns for Parkinson' s, and length of time for neuro referrals. Responding to low dose dopamine replacemen t therapy while waiting for Neurology consultati on. Will follow up on neurology consult and consider redirectin g to [facility] now that Dr. Middleton has reportedly returned. Pt will try to take TID. Memory impairment 465521 006 R41.3 MMSE score was recently 29/30. Suspect mild cognitive impairment . Etiology most likely vascular but Alzheimers and Parkinson' s are also possible contributo rs. Labs unremarkab le. Will refer to neurology to help with evaluation . Generalize d anxiety disorder 19119038 F41.1 Possible that anxiety is a component of his symptoms. Will try low dose SSRI to see if perseveran t behaviors are mitigated. Need to monitor blood counts while on both SSRI and warfarin, and with pancytopen ia. Would d/c if not effective or tolerated. Pancytopenia 453853272 D 61.818 Persistent at stable based on recent labs. Dr. Longoria 05/2024 bone marrow biopsy was c/w MDS. Health Concerns Section Related Observation LastModified by Organization Detai ls LastModified Time None Recorded Concern Status LastModified by Organization Details LastModified Time None Recorded Advance Directives Directive Y: HCP/ -Priti Payers Encounter Date Sequence Insurance Name Policy Number Policy Luong Covered Member ID Luong Member ID Guarantor Name 02/18/2024 2 [place] [id number] Amandeep Roque [id number] Amandeep Roque 02/18/2024 1 [place] Amandeep Roque [id number] Amandeep [place] Jude 04/08/2024 2 [place] [id number] Amandeep Roque [id number] 002 Amandeep [place] Jude 04/08/2024 1 [place] Amandeep Roque [id number] Amandeep Roque 05/12/2024 2 [place] [id number] Amandeep Roque [id number] Amandeep Roque 05/12/2024 1 [place] Amandeep Roque [id number] Amandeep Roque 07/30/2024 2 [place] [id number] Amandeep Roque [id number] 002 Amandeep Roque 07/30/2024 1 [place] Amandeep Roque [id number] Amandeep Roque 08/28/2024 2 [place] [id number] Amandeep Roque [id number] 002 Amandeep Roque 08/28/2024 1 [place] Amandeep Roque [id number] Amandeep Roque Notes Date Note Type Note Provider Name and Address Organization Details Recorded Time 4 text/html Skin LesionReported bypatient.Location:arms (left) Quality:painfulNotes: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 Caused by metal. Went to ED left after 3 hours of not being seen. cleaned it and was able to stop bleeding. Tc Mckeon MD [address] [address], [place], [address], [facility] 02/18/2024 14:48:15 4 text/html Patient reports this summer season has been feeling muscle aches basically all over - mostly in legs, a little weakand c/o fatigue by late morning / before lunch - rests during lunch ac afternoon session no cp, coughsleeping well - cpap - sleeps > 8 hoursdoes get some sob if pushes self too hard rev chart - h/o chf & afib - last seen by card a few months ago - next card ov next weekfol by onc - next in 07.05 for B12 injxn/pancytopeniafol by pulm - ? ILD - he tried ICS c no sig help Alvarado Bridges PA-C [address] [address], [place], [address], [facility] 04/08/2024 21:39:59 4 text/html here for f/u chf, htn dyspnea was much better on prednisone no cp, still has sob at rest but more likely has chisholm upstairs had passed pft's in [address] Adames since last visit, he started him on prednisone and his file conversion operator provided him with a taper. Tc Mckeon MD [address] [address], [place], [address], [facility] 05/27/2024 22:09:11 4 text/html AnemiaReported bypatient.Severity:Macroc ytic [...] EFdyspneaReported bypatient.Notes:Better on steroids. Tc Mckeon MD [address], [address], [facility] 05/27/2024 22:09:11 4 text/html DementiaReported bypatient.Quality:short term memory loss; inability to learn or remember new information; forgetting names or everyday words; difficulty communicating Severity:mild Duration:5 months Onset/Timing:insidious Context:difficulty planning or organizing Associated Symptoms:no depression; no anxiety; no irritability or agitation; no weight loss; no incontinence; no wandering; alcohol use (none)Notes:Having increasing episodes of confusion and difficulty processing as well as learning new information. CT scan from 11/2022 showed mild parenchymal volume loss but nothing acute. 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 Here for follow up because symptoms are worsening and now associated with shuffling gait, thought perseveration. Tc Mckeon MD [address], [address], [facility] 08/09/2024 18:51:14 5 text/html Anxiety/DepressionReporte d bypatient.Quality:mood worse;increased anxiety Severity:denies suicidal ideations; able to maintain relationships;interferenc e with household activities Duration:frequent Onset/Timing:gradual Associated Symptoms:no visual/auditory hallucinations;high irritabilityNotes:Has increased levels of stress/irritibility when plans don't adhere to his timeline.DementiaReported bypatient.Quality:short term memory loss; inability to learn or remember new information; forgetting names or everyday words; difficulty communicating Severity:mild Duration:5 months Onset/Timing:insidious Context:difficulty planning or organizing Associated Symptoms:no depression; no anxiety; no irritability or agitation; no weight loss; no incontinence; no wandering; alcohol use (none)Notes:Having increasing episodes of confusion and difficulty processing as well as learning new information. CT scan from 11/2022 showed mild parenchymal volume loss but nothing acute. 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 Here for follow up because symptoms are worsening and now associated with shuffling gait, thought perseveration. Seems better on low dose carbidopa but only taking BID. Neurology consult has not yet been arranged. Tc Mckeon MD [address] [facility] [address], [place], [address], [facility] 09/02/2024 09:41:55
--- OUTSIDE RECORDS SUMMARY | 2024-09-14 11:26 | XMS_ITS | Encounter Summary ---
Author Organization [employer] [facility] Address [address] [place] [address] Care Team Providers Care Hairspring Cutter Name Role Phone Tc Mata MD Primary Care Provider [phone] Reason for Visit * Reason Comments Follow-up Encounter Details Date Type Department Care Team (Late st Contact Info) Description 09/08/2024 11:20 AM EST Office Visit [facility] [address] [place] [id number] Lynne Yan MD [address] [place] [address] [address]IVE [address] [place] [address] Hypertension, unspecified type (Primary Dx); Mixed hyperlipidemia; Coronary artery disease involving dot lake coronary artery of dot lake heart without angina pectoris; Nonrheumatic aortic valve stenosis; Longstanding persistent atrial fibrillation (CMS/HCC) Social History Tobacco Use Types Packs/Day Years Used Date Smoking Tobacco: Never Smokeless Tobacco: Never Alcohol Use Standard Drinks/Week Comments Yes 0 (1 standard drink = 0.6 oz pur e alcohol) Sex and Gender Information Value Date Recorded Sex Assigned at Not on file Gender Identity Not on file Sexual Orientation Not on file Job Start Date Occupation Industry Not on file Not on file Not on file documented as of this encounter Last Filed Vital Signs Vital Sign Reading Time Taken Comments Blood Pressure 122/70 09/08/2024 12:44 PM EST Pulse - - Temperature - - Respiratory Rate - - Oxygen Saturation - - Inhaled Oxygen Concentration - - Weight 93 kg (205 lb) 09/08/2024 11:27 AM EST Height 167.6 cm (5' 6 ) 09/08/2024 11:27 AM EST Body Mass Index 33.09 09/08/2024 11:27 AM EST documented in this encounter Progress Notes * Lynne Yan MD - 09/08/2024 11:20 AM ESTAssociated Problem(s): Hyperlipidemia Patient with a history of significant hyperlipidemia no recent lipid profiles patient is given a lab slip to check a lipid profile during his next INR Orders: Lipid panel with reflex to direct LDL; Future * Lynne Yan MD - 09/08/2024 11:20 AM ESTAssociated Problem(s): Coronary artery disease Patient is status post 6 vessel coronary bypass. He lost one of the bypasses during the subsequent years. And the catheterization prior to his TAVR showed that the loss of that bypass. His most recent stress echocardiogram showed a small area of ischemia that would be expected due to the loss of the vein graft but no other areas of large ischemic burden identified. Complains of a vague heartburn when he carries buckets of water not certain as to whether this is angina or not. 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 [facility] will [facility] him up for another stress test. * Lynne Yan MD - 09/08/2024 11:20 AM ESTAssociated Problem(s): Aortic stenosis Patient is status post TAVR understands need to continue endocarditis prophylaxis. * Lynne Yan MD - 09/08/2024 11:20 AM ESTAssociated Problem(s): Atrial fibrillation (CMS/HCC) Patient with chronic atrial fibrillation remains rate controlled and chronically anticoagulated. * Lynne Yan MD - 09/08/2024 11:20 AM EST Images from the original note were not included. [facility] CONSULT REQUESTED BY: Dr Mata PCP: Tc Mata MD HPI: Amandeep Roque is a 74 y.o. old male with a 74-year-old status post successful transcatheter aortic valve replacement. History of longstanding heart heart disease with a 6 vessel coronary bypass including bilateral internal mammary arteries in the past. He has chronic A. fib for which he is anti coagulated. He received a #26 Hubbard S3 bioprosthetic valve placed percutaneously from the left transfemoral approach with no complications. Patient's anticoagulations Coumadin. The diagnostic cardiac catheterization prior to the procedure showed a patent ORELLANA graft to the LAD, radial graft to the first obtuse marginal, vein graft to the first diagonal, vein graft to the second obtuse marginal, and there was a closed graft with third obtuse marginal and a right internal mammary artery that was patent to the distal right coronary The patient was seen by us back in the spring 2022 w Stress echo in January 2024 showed underlying A-fib with nonspecific ST-T wave changes inferior lateral T wave changes ith complaints of exertional dyspnea and chest discomfort. His primary care team will order the stress test that is why we never saw it initially. But on reviewing it there appears to be an old infarct and the patient's exercise tolerance was slightly less than it was a year ago with no ischemic changes he did reach target heart rate with message concerning results but never heard back from the patient. 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 amoxicillin (AMOXIL) 500 mg capsule 4 caps prior to dental procedures aspirin 81 mg EC tablet Take 1 tablet (81 mg total) by mouth 1 (one) time each day. carbidopa-levodopa (PARCOPA) 10-100 mg per disintegrating tablet Dissolve 1 tablet on top of the tongue 2 (two) times a day. cetirizine (ZyrTEC) 10 mg tablet Take 1 tablet (10 mg total) by mouth as needed. CHOLECALCIFEROL, VITAMIN D3, ORAL Take by mouth daily. coenzyme Q-10 100 mg capsule Take by mouth at bedtime. colestipoL (COLESTID) 1 gram tablet Take 1 tablet (1 g total) by mouth 1 (one) time each day. dilTIAZem XR (DILACOR XR) 240 mg 24 hr capsule Take 1 capsule (240 mg total) by mouth 1 (one) time each day. escitalopram (LEXAPRO) 5 mg tablet Take 1 tablet (5 mg total) by mouth 1 (one) time each day. ezetimibe (ZETIA) 10 mg tablet Take 1 tablet (10 mg total) by mouth 1 (one) time each day. furosemide (LASIX) 20 mg tablet Take 1 tablet (20 mg total) by mouth as needed. glucosamine/methylsulfonylmeth (glucosamine sulfate-msm) 500-500 mg tablet Take 0.5 Tab ER by mouth2 (two) times a day. metoprolol succinate (TOPROL-XL) 100 mg 24 hr tablet Take 1 tablet (100 mg total) by mouth 1 (one) time each day. montelukast (SINGULAIR) 10 mg tablet Take 1 Tablet by mouth at bedtime. nitroglycerin (NITROSTAT) 0.[address] 1 tablet (0.4 mg total) under the tongue every 5 (five) minutes if needed. omega-3 acid ethyl esters (LOVAZA) 1 gram capsule Take 1 capsule (1 g total) by mouth 1 (one) time each day. omeprazole (PRILOSEC) 20 mg tablet,delayed release (DR/EC) Take by mouth daily. rosuvastatin (CRESTOR) 40 mg tablet Take 1 tablet (40 mg total) by mouth 1 (one) time each day. tamsulosin (FLOMAX) 0.4 mg 24 hr capsule Take 0.4 mg by mouth daily. Take 30 mins after same meal every day. warfarin (COUMADIN) 2.5 mg tablet Take 1 Tablet by mouth See Admin Instructions. As directed by PCP warfarin (COUMADIN) 5 mg tablet Take 1 tablet by mouth daily. PCP directed PAST MEDICAL HISTORY: Patient Active Problem List Diagnosis Anemia Aortic stenosis Atrial fibrillation (CMS/HCC) Coronary artery disease Dyspnea Hyperlipidemia Muscle pain ALLERGIES: No Known Allergies FAMILY HISTORY: No family history on file. SOCIAL HISTORY: Social History Tobacco Use Smoking status: Never Smokeless tobacco: Never Substance Use Topics Alcohol use: Yes REVIEW OF SYSTEMS: Review of Systems Constitutional: Negative. HENT: Negative. Eyes: Negative. Cardiovascular: Negative. Respiratory: Negative. Endocrine: Negative. Hematologic/Lymphatic: Negative. Skin: Negative. Musculoskeletal: Negative. Gastrointestinal: Negative. Genitourinary: Negative. Neurological: Negative. Psychiatric/Behavioral: Negative. Allergic/Immunologic: Negative. All other systems reviewed and are negative. PHYSICAL EXAM: Vitals: 09/08/24 1127 Weight: 93 kg (205 lb) Height: 1.676 m (66 ) Physical Exam Constitutional: Appearance: Normal appearance. HENT: Head: Normocephalic and atraumatic. Nose: Nose normal. Eyes: Extraocular Movements: Extraocular movements intact. Pupils: Pupils are equal, round, and reactive to light. Cardiovascular: Rate and Rhythm: Rhythm irregular. Pulmonary: Breath sounds: Normal breath sounds. Abdominal: General: Abdomen is flat. Bowel sounds are normal. Palpations: Abdomen is soft. Musculoskeletal: General: Normal range of motion. Cervical back: Normal range of motion and neck supple. Skin: General: Skin is warm and dry. Neurological: General: No focal deficit present. Mental Status: He is alert. Psychiatric: Mood and Affect: Mood normal. EKG: Encounter Date: 09/08/24 ECG 12 lead Result Value Ventricular Rate ECG 68 Atrial Rate 250 QRS Duration 106 Q-T Interval 406 QTc 431 R [place] 47 T [place] 1 ECG Interpretation Atrial fibrillation Abnormal ECG When compared with ECG of 24-NOV-2022 17:34, T wave inversion no longer evident in Anterolateral leads *Note: Due to a large number of results and/or encounters for the requested time period, some results have not been displayed. A complete set of results can be found in Results Review. TESTING: ASSESSMENT/PLAN: Assessment & Plan Hypertension, unspecified type Blood pressure is presently well-controlled. I have warned the patient and his that now that has been placed on medical management for Parkinson's disease that occasionally the Parkinson's meds and the disease itself can cause orthostatic hypotension. We checked his orthostatics today they arestable Orders: ECG 12 lead Mixed hyperlipidemia Patient with a history of significant hyperlipidemia no recent lipid profiles patient is given a lab slip to check a lipid profile during his next INR Orders: Lipid panel with reflex to direct LDL; Future Coronary artery disease involving dot lake coronary artery of dot lake heart without angina pectoris Patient is status post 6 vessel coronary bypass. He lost one of the bypasses during the subsequent years. And the catheterization prior to his TAVR showed that the loss of that bypass. His most recent stress echocardiogram showed a small area of ischemia that would be expected due to the loss of the vein graft but no other areas of large ischemic burden identified. Complains of a vague heartburn when he carries buckets of water not certain as to whether this is angina or not. 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 I told him that if the discomfort persists in the[employer] then we will set him up for another stress test. Nonrheumatic aortic valve stenosis Patient is status post TAVR understands need to continue endocarditis prophylaxis. Longstanding persistent atrial fibrillation (CMS/HCC) Patient with chronic atrial fibrillation remains rate controlled and chronically anticoagulated. Assessment & Plan The [facility] team will continue to co-manage this patient following the plan of care as established by my initial visit and as per AHA guidelines for ongoing management and surveillance of Coronary ArteryDisease, Atrial Fibrillation, Valvular Heart Disease, Hyperlipidemia, and Hypertension This will include medication titration, initiation of appropriate medications and further titration, and diagnostic studies to manage this disease process. documented in this encounter Plan of Treatment Upcoming Encounters Date Type Department Care Team (Late st Contact Info) Description 02/10/2025 9:20 AM EDT Office Visit [facility] [address] [place] [address] Lynne Yan MD [address] [place] [address] [address]IVE [address] [place] [address] Scheduled Orders Name Type Priority Associated Diagnoses Orde r Schedule Lipid panel with reflex to direct LDL Lab Routine Mixed hyperlipidemia 1 Occurrences starting 09/08/2024 until 09/08/2025 documented as of this encounter Procedures Procedure Name Priority Date/Time Associated Diagnosis Comments ECG 12-LEAD Routine 09/08/2024 11:39 AM EST Hypertension, unspecified type documented in this encounter Results * ECG 12 lead (09/08/2024 11:39 AM EST) Ventricular Rate ECG 68 BPM GEMUSE Atrial Rate 250 BPM GEMUSE QRS Duration 106 ms GEMUSE Q-T Interval 406 ms GEMUSE QTc 431 ms GEMUSE R [place] 47 degrees GEMUSE T [place] 1 degrees GEMUSE ECG Interpretation Atrial fibrillation Abnormal ECG When compared with ECG of 24-NOV-2022 17:34, T wave inversion no longer evident in Anterolateral leads Confirmed by Elle YAN, LYNNE ([id number]) on 09/08/2024 3:37:21 PM GEMUSE 09/08/2024 11:3 9 AM EST 09/08/2024 3:37 PM EST Lynne Yan MD ECG ORDERABLES GEMUSE documented in this encounter Visit Diagnoses Diagnosis Hypertension, unspecified type- Primary Mixed hyperlipidemia Coronary artery disease involving dot lake coronary artery of dot lake heart without angina pectoris Nonrheumatic aortic valve stenosis Longstanding persistent atrial fibrillation (CMS/HCC) documented in this encounter Historical Medications * This list may reflect changes made after this encounter. Medication Sig Dispensed Refills Start Date End Date escitalopram (LEXAPRO) 5 mg tablet Take 1 tablet (5 mg total) by mouth 1 (one) time each day. carbidopa-levodopa (PARCOPA) 10-100 mg per disintegrating tablet Dissolve 1 tablet on top of the tongue 2 (two) times a day. added in this encounter Care Teams Hairspring Cutter Relationship Specialty Start Date End Date Tc Mata MD [address] [place], [place] PCP - General Internal Medicine 09/08/24 documented as of this encounter
--- OUTSIDE RECORDS SUMMARY | 2024-09-14 11:26 | XMS_ITS | Clinical Summary ---
Author Organization [facility] Address [address] [place] [phone] Phone Care Team Providers Care Paint Grinder Name Role Phone [facility] Unavailable [phone] Tc Mata MD Primary Care Provider [phone] Reason for Visit and Chief Complaint Established Patient Plan of Treatment Pending Tests Order Diagnosis Results Due Ordering P rovider Follow Up - Appointment PRN Contusio n of left lower leg, initial encounter 12/17/22 Eduardo Pruitt MD Last Documented On 10:24AM ; [facility] Assessments Includes: Assessments from this encounter No [...] Last Documented: On 12/17/2022 10:21A M ; [facility] Results Includes: Results discussed during this encounter [...] Time Diagnosis Established Patient Eduardo Pruitt MD [facility], 12/18/19 9:40AM 10:25AM Insurance Includes: Active Insurance Policies Plan Name Member ID Group # Subscriber Relationship Effect nelia Dates 1 - Medicare Part B of [place] [id number] Amandeep Simpson 2 - [employer] [id number] Amandeep Simpson Clinical Notes Includes: Clinical Notes from this encounter * Progress note Date Encounter Last Documented by 12/17/2022 Established Patient Last documen helen on 12/17/2022; 10:24 AM, Eduardo Pruitt MD; [facility], Physical Findings - Vitals taken 12/17/2022 [...]
--- OUTSIDE RECORDS SUMMARY | 2024-09-14 11:27 | XMS_ITS | Clinical Summary ---
Author Organization [facility] Address [address] [place] [address] Care Team Providers Care Outside Sales Representative Insurance Name Role Phone BrendonYannick DO Primary Care Provider [phone] Social History Tobacco Use Types Packs/Day Years Used Date Smoking Tobacco: Never Assessed Sex and Gender Information Value Date Recorded Sex Assigned at Not on file Gender Identity Not on file Sexual Orientation Not on file Job Start Date Occupation Industry Not on file Not on file Not on file Plan of Treatment Health Maintenance Due Date Last Done Comments Hepatitis C Screening 1950 COVID-19 Vaccine (#1) 1952 Depression Screening 1964 Preventative Health Evaluation 1970 DTap / Tdap / Td (1 - Tdap) 1971 Colon Cancer Screening (Colonoscopy) 1997 Shingrix-Zoster Vaccine (1 of 2) 2002 Fall Risk Assessment 2017 Pneumococcal Vaccine (1 of 1 - PCV) 2017 Influenza Vaccine (#1) 2024 RSV Adult > 60+ Yrs or Pregn ant (1 - 1-dose 75+ series) 2027 Hepatitis B Vaccines Aged Out No long er eligible based on patient's age to complete this topic RSV Ped < 20 months Aged Out No longe r eligible based on patient's age to complete this topic Care Teams Outside Sales Representative Insurance Relationship Specialty Start Date End Date aYnnick Olivas [facility] [place] [address] PCP - General Environmental Health And Safety Leader 01/10/24
--- OUTSIDE RECORDS SUMMARY | 2024-09-14 11:27 | XMS_ITS | Encounter Summary ---
Author Organization [facility] Address [address] [place] [id number] Care Team Providers Care Field Traffic Investigator Name Role Phone Unavailable Primary Care Provider Unavailabl e Reason for Referral * Neurology (Routine) - Authorized Specialty Diagnoses / Procedures Referred By Sheeba power Referred To Contact Neurology Diagnoses Shuffling gait Tc Mata MD [address] [address] Mg Movemnt Ds Vern35 [address] [phone] Referral ID Status Reason Start Date Expiration Date V isits Requested Visits Authorized [id number] Authorized Consult 09/08/2024 09/09/2025 1 1 Encounter Details Date Type Department Care Team (Late Contact Info) Description 09/08/2024 Transcribe Orders [facility] [place] [address] [phone] Eduardo Cormier MD [address] [address] Shuffling gait (Primary Dx); Other abnormalities of gait and mobility Social History Tobacco Use Types Packs/Day Years Used Date Smoking Tobacco: Never Assessed Sex and Gender Information Value Date Recorded Sex Assigned at Not on file Gender Identity Not on file Sexual Orientation Not on file documented as of this encounter Plan of Treatment Upcoming Encounters Date Type Department Care Team (Late st Contact Info) Description 09/30/2024 2:45 PM EST Office Visit [facility] Neurology [place] [address] [facility] [place] [phone] Eduardo Cormier MD [address] [phone] Asim Araujo MD [address] [facility] [address] [place], [place] [address] 06/15/2025 9:30 AM EST Office Visit [facility] Neurology [place] [address] [phone] Ravi Wilson APRN [address] [address] Scheduled Referrals Name Type Priority Associated Diagnoses Orde r Schedule Amb Referral to Neurology-Movement Disorders Outpatient Referral Routine Shuffling gait Ordered: 09/08/2024 documented as of this encounter Visit Diagnoses Diagnosis Shuffling gait- Primary Abnormality of gait Other abnormalities of gait and mobility documented in this encounter
--- OUTSIDE RECORDS SUMMARY | 2024-09-14 11:27 | XMS_ITS | Clinical Summary ---
Author Organization [facility] [employer] Address [address] [address] Phone Care Team Providers Care Latcher Name Role Phone Tc Mata MD Primary Care Provider [phone] Allergies No known active allergies Medications Medication Sig Dispensed Refills Start Date End Date Status CHOLECALCIFEROL, VITAMIN D3, ORAL Take by mouth daily. Active cetirizine (ZyrTEC) 10 mg tablet Take 1 tablet (10 mg total) by mouth as needed. Active aspirin 81 mg EC tablet Take 1 tablet (81 mg total) by mouth 1 (one) time each day. 07/11/2014 Active amoxicillin (AMOXIL) 500 mg capsule 4 caps prior to dental procedures 10/11/2021 Active amLODIPine (NORVASC) 2.5 mg tablet Take 1 tablet (2.5 mg total) by mouth 1 (one) time each day. Active colestipoL (COLESTID) 1 gram tablet Take 1 tablet (1 g total) by mouth 1 (one) time each day. 10/30/2010 Active dilTIAZem XR (DILACOR XR) 240 mg 24 hr capsule Take 1 capsule (240 mg total) by mouth 1 (one) time each day. Active ezetimibe (ZETIA) 10 mg tablet Take 1 tablet (10 mg total) by mouth 1 (one) time each day. 10/30/2010 Active furosemide (LASIX) 20 mg tablet Take 1 tablet (20 mg total) by mouth as needed. Active glucosamine/methylsulf onylmeth (glucosamine sulfate-msm) 500-500 mg tablet Take 0.5 Tab ER by mouth 2 (two) times a day. Active metoprolol succinate (TOPROL-XL) 100 mg 24 hr tablet Take 1 tablet (100 mg total) by mouth 1 (one) time each day. Active montelukast (SINGULAIR) 10 mg tablet Take 1 Tablet by mouth at bedtime. Active nitroglycerin (NITROSTAT) 0.[address] 1 tablet (0.4 mg total) under the tongue every 5 (five) minutes if needed. 04/10/2024 Active omega-3 acid ethyl esters (LOVAZA) 1 gram capsule Take 1 capsule (1 g total) by mouth 1 (one) time each day. 10/30/2010 Active omeprazole (PRILOSEC) 20 mg tablet,delayed release (DR/EC) Take by mouth daily. Active rosuvastatin (CRESTOR) 40 mg tablet Take 1 tablet (40 mg total) by mouth 1 (one) time each day. 10/30/2010 Active tamsulosin (FLOMAX) 0.4 mg 24 hr capsule Take 0.4 mg by mouth daily. Take 30 mins after same meal every day. Active coenzyme Q-10 100 mg capsule Take by mouth at bedtime. Active warfarin (COUMADIN) 2.5 mg tablet Take 1 Tablet by mouth See Admin Instructions. As directed by PCP Active warfarin (COUMADIN) 5 mg tablet Take 1 tablet by mouth daily. PCP directed Active carbidopa-levodopa (PARCOPA) 10-100 mg per disintegrating tablet Dissolve 1 tablet on top of the tongue 2 (two) times a day. Active escitalopram (LEXAPRO) 5 mg tablet Take 1 tablet (5 mg total) by mouth 1 (one) time each day. 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 He will continue with the Zetia but discontinued the Crestor Dyspnea 05/03/2022 Overview (09/07/2024): Last Assessment & Plan: As far as the dyspnea is concerned this is a multifactorial problem. So what we know to date is the following 1. 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 Holter monitoring in 2022 showed that on a daily hourly basis his heart rate is fairly well-controlled at rest today his pulse is 72 I do not think that the patient is having poorly controlled atrial fibrillation as the etiology of his dyspnea 3. He is occasionally tachycardic but is also profoundly anemic and his hemoglobin is fallen by 2 points since December. And his borderline anemic at this point. He has been seen by hematology and may have CLL. And most likely is going to need another bone marrow biopsy. Through all these issues I think what is driving his shortness of breath at this point and mild tachycardia with activity and slight elevated BNP is the anemia. The patient stopped taking his Lasix because it is inconvenient for him to pee in the may but have asked him to go back on it as best he can this will help bring down his BNP. He does have a B12 deficiency but that appears to be corrected based on his most recent lab work Anemia 10/11/2021 Overview (09/07/2024): Last Assessment & Plan: Patient with a chronic anemia with a abnormal bone marrow patient's been seen by hematology in a week Aortic stenosis 10/11/2021 Overview (09/07/2024): Last Assessment & Plan: Patient is status post TAVR aortic valve last echocardiogram showed stable valve function without significant stenosis or insufficiency endocarditis prophylaxis continues Assessment & Plan (09/08/2024 4:53 PM EST): Patient is status post TAVR understands need to continue endocarditis prophylaxis. Atrial fibrillation 10/11/2021 Overview (09/07/2024): Last Assessment & Plan: Patient has chronic atrial fibrillation that is rate controlled and chronically anticoagulated without bleeding issues. Assessment & Plan (09/08/2024 4:53 PM EST): Patient with chronic atrial fibrillation remains rate controlled and chronically anticoagulated. Coronary artery disease 10/11/2021 Overview (09/07/2024): Last Assessment & Plan: Patient is status post remote 6 vessel coronary bypass. He is lost one of the grafts but the remaining coronary tree was patent at the time of his TAVR evaluation. His most recent stress echo showed a small area of ischemia as would be expected due to loss of the vein graft. But no significant areas of ischemia or symptoms of ischemia. I do not believe that this is contributing to her shortness of breath. 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 Hyperlipidemia 10/11/2021 Overview (09/07/2024): Last Assessment & Plan: Lipids are well controlled at this time Assessment & Plan (09/08/2024 4:53 PM EST): Patient with a history of significant hyperlipidemia no recent lipid profiles patient is given a lab slip to check a lipid profile during his next INR Orders: Lipid panel with reflex to direct LDL; Future Encounters Date Type Department Care Team Description 09/08/2024 11:20 AM EST Office Visit [facility] [address] [place] [address] [place] [phone] Lynne Yan MD Hypertension, unspecified type (Primary Dx); Mixed hyperlipidemia; Coronary artery disease involving kaw coronary artery of kaw heart without angina pectoris; Nonrheumatic aortic valve stenosis; Longstanding persistent atrial fibrillation (CMS/HCC) from Last 3 Months Social History Tobacco Use Types Packs/Day Years [...] file Not on file Not on file Obstetrics History Last Filed Vital Signs Vital Sign Reading Time Taken Comments Blood Pressure 122/70 09/08/2024 12:44 PM EST Pulse 87 04/10/2024 4:07 PM EDT Temperature - - Respiratory Rate - - Oxygen Saturation - - Inhaled Oxygen Concentration - - Weight 93 kg (205 lb) 09/08/2024 11:27 AM EST Height 167.6 cm (5' 6 ) 09/08/2024 11:27 AM EST Body Mass Index 33.09 09/08/2024 11:27 AM EST Plan of Treatment Upcoming Encounters Date Type Department Care Team (Late st Contact Info) Description 02/10/2025 9:20 AM EDT Office Visit [facility] Cardiology [address] [place] [phone] Lynne Yan MD [address] [place] [address] [address] [place] [address] Health Maintenance Due Date Last Done Comments RSV Immunization Patients 60+ Years Old (1 - Risk 60-74 years 1-dose series) 2012 COVID-19 Vaccine (3 - Pfizer risk series) 12/10/2020 11/12/2020, 10/20/2020 Cholesterol Screening (Lipid Panel) 07/10/2022 Colorectal Cancer Screening: Stool Based Tests (FOBT/FIT) 07/10/2022 Depression Screening 07/10/2022 Falls Risk Assessment 07/10/2022 Hepatitis C Screening 07/10/2022 Social Influencers of Health Screening 07/10/2022 Hypertension/CHF/CAD Annual BMP Blood Test 07/22/2022 Medicare Annual Wellness Visit 11/07/2023 11/06/2022 DTaP,Tdap,and Td Vaccines (3 - Td or Tdap) 09/01/2029 09/01/2019, 09/29/2009 Pneumococcal Vaccine: 65+ Years Completed 08/29/2018, 06/14/2017 Zoster Vaccines Completed 03/13/2020, 09/10/2019 Influenza Vaccine Completed 05/12/2024, , 05/10/2022, Additional history exists HIB Vaccines Aged Out No longer eligi ble based on patient's age to complete this topic HPV Vaccines Aged Out No longer eligi ble based on patient's age to complete this topic Hepatitis A Vaccines Aged Out No long er eligible based on patient's age to complete this topic Hepatitis B Vaccines Aged Out No long er eligible based on patient's age to complete this topic IPV Vaccines Aged Out No longer eligi ble based on patient's age to complete this topic MMR Vaccines Aged Out No longer eligi ble based on patient's age to complete this topic Meningococcal ACWY Vaccine Aged Out N o longer eligible based on patient's age to complete this topic RSV Immunization Patients Under 20 months Aged Out No longer eligible based on patient's age to complete this topic Varicella Vaccines Aged Out No longer eligible based on patient's age to complete this topic Procedures Procedure Name Priority Date/Time Associated Diagnosis Comments ECG 12-LEAD Routine 09/08/2024 11:39 AM EST Hypertension, unspecified type from Last 3 Months Results * ECG 12 lead (09/08/2024 11:39 AM EST) Ventricular Rate ECG 68 BPM GEMUSE Atrial Rate 250 BPM GEMUSE QRS Duration 106 ms GEMUSE Q-T Interval 406 ms GEMUSE QTc 431 ms GEMUSE R Pass Christian 47 degrees GEMUSE T Pass Christian 1 degrees GEMUSE ECG Interpretation Atrial fibrillation Abnormal ECG When compared with ECG of 24-NOV-2022 17:34, T wave inversion no longer evident in Anterolateral leads Confirmed by Elle YAN, LYNNE ([id number]) on 09/08/2024 3:37:21 PM GEMUSE 09/08/2024 11:3 9 AM EST 09/08/2024 3:37 PM EST Lynne Yan MD ECG ORDERABLES GEMUSE from Last 3 Months Care Teams Latcher Relationship Specialty Start Date End Date Tc Mata MD [address] PCP - General Internal Medicine 09/08/24
--- OUTSIDE RECORDS SUMMARY | 2024-09-14 11:27 | XMS_ITS ---
Care Plan - [facility] Created on: September 14, 2024 Amandeep Roque : 1950 Sex: Male Author Organization [facility] Address [address] [place] [phone] Phone Care Team Providers Care Director New Product Name Role Phone [facility] Unavailable [phone] Tc Mata MD Primary Care Provider [phone]
--- OUTSIDE RECORDS SUMMARY | 2024-09-14 11:27 | XMS_ITS | Clinical Summary ---
Author Organization [facility] Address [address] [place] [address] Care Team Providers Care Travel Rn Or Name Role Phone Tc Mata MD Primary Care Provider Encounters Date Type Department Care Team Description 09/08/2024 Transcribe Orders [facility] Neurology [address] [phone] Eduardo Cormier MD Shuffling gait (Primary Dx); Other abnormalities of gait and mobility from Last 3 Months Social History Tobacco Use Types Packs/Day Years Used Date Smoking Tobacco: Never Assessed Sex and Gender Information Value Date Recorded Sex Assigned at Not on file Gender Identity Not on file Sexual Orientation Not on file Plan of Treatment Upcoming Encounters Date Type Department Care Team (Late st Contact Info) Description 09/30/2024 2:45 PM EST Office Visit [facility] Neurology [place] [address] [place] [address] Eduardo Cormier MD [address] [phone] Asim Araujo MD [address] [facility] [address] [place], [place] [phone] 06/15/2025 9:30 AM EST Office Visit [facility] Neurology [address] [phone] Ravi Wilson, FILM PRODUCER [address] [address] Health Maintenance Due Date Last Done Comments Hepatitis C Virus Screening 1950 DTaP/Tdap/Td Vaccines (1 - Tdap) 1971 Colonoscopy 1997 Pneumococcal Vaccines 50+ (1 of 1 - PCV) 2002 Zoster (Shingles) Vaccine (1 of 2) 2002 Influenza Vaccine 03/12/2024 COVID-19 Vaccine (1 - 2023-2 5 season) 2024 RSV Vaccine 60 years and old er and Patients (1 - 1-dose 75+ series) 2027 Hepatitis B Vaccines Aged Out No long er eligible based on patient's age to complete this topic Care Teams Travel Rn Or Relationship Specialty Start Date End Date Tc Mata MD [address] [address] PCP - General 09/11/24
== END 2024-09-14 13:09 | disposition home or self-care (01) ==
PROVIDERS: PCP Pediatrics; Visit Provider Hospitalist
DX: R06.09 Other forms of dyspnea (principal); J84.9 Interstitial pulmonary disease, unspecified; I48.0 Paroxysmal atrial fibrillation; D64.89 Other specified anemias; I38 Endocarditis, valve unspecified; R91.8 Other nonspecific abnormal finding of lung field
CPT/HCPCS: 99214

== ENCOUNTER → 2024-09-14 10:36 | Outpatient (BNVA) | payer MEDICARE, SELFPAY | PROVIDERS: PCP Pediatrics; Visit Provider Hospitalist | DX: R06.09 Other forms of dyspnea (principal); J84.9 Interstitial pulmonary disease, unspecified; I48.0 Paroxysmal atrial fibrillation; D64.89 Other specified anemias; I38 Endocarditis, valve unspecified; R91.8 Other nonspecific abnormal finding of lung field | CPT/HCPCS: 99212 ==